=== PATIENT | male | born 1930 | race African-American/Black ===

== ENCOUNTER 2017-04-17 06:31 | Day surgery (SDC) | payer OTHER ==
[~2017-04-17] VITALS: Ht 188 cm; Wt 63.6 kg
[~2017-04-17 06:31] MED LIST: ACYC200C PO; ALBU6.7H INH; ALBU8I INH; AMLO10 PO; ASPI81TA82 PO; BORT3.5P IV; BYST10TA2 PO; GLUCTAB PO; HYDR-3580 PO; LABE300 PO; LISI2.5T3 PO; ONDA8 PO; PRAV10 PO; PRED20 PO; VENO20IN IV; VITA100020 PO; Z.0.OXYGENDME NC; ZITH250T PO
[2017-04-17 06:48] VITALS: BP 198/96; PULSE 71; RESP 20; TEMP 97.6; O2SAT 97
[2017-04-17] MEDS ORDERED: BYST10TA2 PO (06:50)
[2017-04-17] MEDS ORDERED: PRAV10TA PO (06:50)
[2017-04-17] MEDS ORDERED: PLAV75TA29 PO (06:50)
[2017-04-17] MEDS ORDERED: LISI2.5T3 PO (06:50)
[2017-04-17] MEDS ORDERED: ONDA1TAB17 PO (06:50)
[2017-04-17] MEDS ORDERED: ASPI-110 PO (06:50)
[2017-04-17] MEDS ORDERED: AMLO10TA2 PO (06:50)
[2017-04-17] MEDS ORDERED: ALBU6.7H INH (06:50)
[2017-04-17] MEDS ORDERED: VENTAER INH (06:50)
[2017-04-17] MEDS ORDERED: IMPLANTED VASCULAR ACCESS DEVICE/PORT - SODIUM CHLORIDE FLUSH PRN IV FLUSH (07:00)
[2017-04-17] MEDS ORDERED: SODIUM CHLOR 0.9% 1000 ML IV SCH (07:00)
[2017-04-17] MEDS ORDERED: IMPLANTED VASCULAR ACCESS DEVICE/PORT - SODIUM CHLORIDE FLUSH IV FLUSH SCH (07:00)
[2017-04-17] MEDS ORDERED: SODIUM CHLORIDE 0.9% FLUSH 10 ML FLUSH IV FLUSH PRN ×2 (07:00)
[2017-04-17 07:37] LABS: AUTOMATED NEUTROPHIL # 3.7 TH/MM3 (1.8-7.7); BASOPHIL % 0.6 % (0.0-2.0); EOSINOPHIL # 0.1 TH/MM3 (0-0.4); EOSINOPHIL % 2.2 % (0.0-4.0); HEMATOCRIT 26.6 % (39.0-51.0); HEMO FLAGS DIFF FINAL; LYMPH % 27.4 % (9.0-44.0); LYMPHOCYTE # 1.7 TH/MM3 (1.0-4.8); MEAN CELL VOLUME 80.3 FL (80.0-100.0); MEAN CORPUSCULAR HEMOGLOBIN 25.9 PG (27.0-34.0); MEAN CORPUSCULAR HGB CONC 32.3 % (32.0-36.0); MONO % 10.5 % (0.0-8.0); NEUT % 59.3 % (16.0-70.0); PLATELET COUNT 252 TH/MM3 (150-450); RED BLOOD COUNT 3.31 MIL/MM3 (4.50-5.90); RED CELL DISTRIBUTION WIDTH 16.1 % (11.6-17.2); WHITE BLOOD COUNT 6.3 TH/MM3 (4.0-11.0)
[2017-04-17 07:43] LABS: APTT (PATIENT) 26.4 SEC (24.3-30.1); INTERNATIONAL NORMALIZED RATIO 0.9 RATIO; PROTHROMBIN TIME - PATIENT 10.3 SEC (9.8-11.6)
[2017-04-17] MEDS ORDERED: LIDOCAINE 1%/EPINEPHrine 1:100,000 SOLN 20 ML VIAL ONE (07:56)
[2017-04-17] MEDS ORDERED: fentaNYL CITRATE 250 MCG/5 ML AMP ONE (08:28)
[2017-04-17] MEDS ORDERED: MIDAZOLAM HCL 5 MG/5 ML VIAL ONE (08:28)
--- NOTE | 2017-04-17 09:11 | PD.RAD ---
Post Procedure Progress Note Pre Procedure Diagnosis: (1) Anemia Post Procedure Diagnosis: (1) Anemia Procedure Date: Apr 17, 2017 Supervising Radiologist: Saul Diaz Anesthesia: Local, Conscious Sedation Plan of Activity Patient to Unit: ROPU Patient Condition: Good Additional Comments: PT post bone marrow biopsy, Full dictated report to follow. See PACS Report for procedural detail/treatment Saul Diaz MD Apr 17, 2017 09:11
[2017-04-17 09:25] VITALS: BP 189/90; PULSE 71; RESP 18; TEMP 98; O2SAT 100
[2017-04-17 09:40] VITALS: BP 196/93; PULSE 73; RESP 18; O2SAT 99
[2017-04-17 09:40] LABS: BONE MARROW PROCESSING COMPLETE; IRON STAIN DONE; JENNER GIEMSA STAIN DONE
[2017-04-17 10:10] VITALS: BP 165/74; PULSE 74; RESP 18; O2SAT 97
[2017-04-17 10:40] VITALS: BP 158/78; PULSE 69; RESP 18; O2SAT 99
[2017-04-17 11:10] VITALS: BP 178/81; PULSE 71; RESP 18; O2SAT 97
--- NOTE | 2017-04-17 11:10 | RADRPT ---
EXAM DATE/TIME: 04/17/2017 08:47 [facility] COMPARISON: CT LUMBAR SPINE W/O CONTRAST, May 10, 2014, 11:43. INDICATIONS : Multiple myeloma. SEDATION TIME: 10 minutes BIOPSY SITE: Left iliac MEDICATION(S): 1.) 1 mg midazolam (Versed) IV 2.) 50 mcg fentanyl (Sublimaze) IV DEVICE(S): 1.) 11 gauge Bone marrow biopsy needle MEDICAL HISTORY : Metastatic, bone. Multiple myeloma, anemia SURGICAL HISTORY : None. ENCOUNTER: Initial ACUITY: 1 day PAIN SCORE: 0/10 LOCATION: Left pelvis A total of one core specimen(s) were obtained and sent to the laboratory for pathologic evaluation. PROCEDURE: 1. CT guided bone marrow biopsy. 2. Conscious sedation with continuous EKG and oximetry monitoring. Prior to the procedure informed consent was obtained. Any appropriate prior imaging studies were rev iewed. Using automated exposure control and adjustment of the mA and/or kV according to patient size , radiation dose was kept as low as reasonably achievable to obtain optimal diagnostic quality images . DICOM format image data is available electronically for review and comparison. The site was prepped in a sterile fashion. Full sterile technique was used, including cap, mask, wojciech rile gloves and gown and a large sterile sheet. Hand hygiene and 2% chlorhexidine and/or betadine/al cohol prep was utilized per protocol for cutaneous antisepsis. The skin and subcutaneous tissues wer e infiltrated with local anesthetic solution. With CT guidance the previously identified target was localized. Biopsy was performed using the presc ribed needle as above. Following biopsy marrow aspiration was performed with repeat puncture. Adequa te hemostasis was obtained with compression at the puncture site. Follow-up CT scan reveals no hemorrhage. Conscious sedation was performed with the prescribed dosages and duration as above in the presence of an independent trained radiology nurse to assist in the monitoring of the patient. EKG and oximetry remained stable throughout the procedure. The patient tolerated the procedure well and there were no complications. The patient was sent to Radiology Outpatient Unit in stable condition. CONCLUSION: 1. Uncomplicated CT guided bone marrow aspirate. 2. Uncomplicated CT guided bone marrow biopsy. Saul Diaz MD on April 17, 2017 at 11:08 Board Certified Radiologist. This report was verified electronically.
== END 2017-04-17 11:30 | disposition home or self-care (01) ==
LOC: HRAD 06:31 → HRIP 06:35 → HRAD 11:30
PROVIDERS: ATTEND Internal Medicine
DX: C90.00 Multiple myeloma not having achieved remission (principal); D50.9 Iron deficiency anemia, unspecified
CPT/HCPCS: 38221; 77012; 85025; 85097; 85610; 85730; 88184; 88185; 88237; 88264; 88280; 88305; 88311; 88313; 88341; 88342; 88377; 99152; C1830; G0364; J2250; J3010

== ENCOUNTER 2017-04-26 06:53 | Day surgery (SDC) | payer OTHER ==
[~2017-04-26] VITALS: Ht 188 cm; Wt 80.5 kg
[2017-04-26] VITALS (7 sets, daily range): BP systolic 176–205; BP diastolic 85–95; PULSE 70–76; RESP 20; TEMP 97.9–98.5; O2SAT 98–100
[~2017-04-26 06:53] MED LIST changes: -ACYC200C PO; -ALBU8I INH; -AMLO10 PO; +AMLO10TA2 PO; +ASPI-110 PO; -ASPI81TA82 PO; -BORT3.5P IV; -GLUCTAB PO; -HYDR-3580 PO; -LABE300 PO; +ONDA1TAB17 PO; -ONDA8 PO; +PLAV75TA29 PO; -PRAV10 PO; +PRAV10TA PO; -PRED20 PO; -VENO20IN IV; +VENTAER INH; -ZITH250T PO
[2017-04-26] MEDS ORDERED: VANCOMYCIN 1000 MG/NS 250 ML - implanted port/tunneled catheter IV SCH ×2 (07:30)
[2017-04-26] MEDS ORDERED: CHLORHEXIDINE GLUCONATE 2 % 1 PACK (2 CLOTHS) TOPICAL SCH (07:30)
[2017-04-26] MEDS ORDERED: SODIUM CHLORIDE 0.9% 1000 ML IV SCH (07:30)
[2017-04-26] MEDS ORDERED: POVIDONE IODINE 5% (ANTISEPSIS KIT) 4 APPLICATIONS EACH NARE SCH (07:30)
[2017-04-26] MEDS: ceFAZolin 2 GM PREMIX 50 ML - implanted port/tunneled catheter insertion IV SCH ×2 (08:11→14:25)
[2017-04-26] MEDS ORDERED: ceFAZolin 2 GM PREMIX 50 ML - implanted port/tunneled catheter insertion IV SCH (09:00)
[2017-04-26] MEDS ORDERED: MIDAZOLAM HCL 5 MG/5 ML VIAL ONE (09:30)
[2017-04-26] MEDS ORDERED: fentaNYL CITRATE 250 MCG/5 ML AMP ONE (09:30)
[2017-04-26] MEDS ORDERED: MIDAZOLAM HCL 2 MG/2 ML VIAL ONE (09:30)
[2017-04-26] MEDS ORDERED: LIDOCAINE 1%/EPINEPHrine 1:100,000 SOLN 20 ML VIAL ONE (09:38)
[2017-04-26] MEDS ORDERED: SODIUM CHLORIDE 0.9% FLUSH 10 ML FLUSH IVF PRN (10:30)
--- NOTE | 2017-04-26 10:32 | PD.RAD ---
Post Procedure Progress Note Pre Procedure Diagnosis: (1) Colon cancer Post Procedure Diagnosis: (1) Colon cancer Procedure Date: Apr 26, 2017 Supervising Radiologist: Isak Barnard JR Proceduralist/Assist: Teresa Warren, RT(R), Emily Lizarraga, RT(R) Anesthesia: Conscious Sedation Plan of Activity Patient to Unit: R[facility]U Patient Condition: Good See PACS Report for procedural detail/treatment Central Venous Access Device Procedure 1 Right Internal Jugular Infusaport Placement single lumen Romanian: 8 Findings: Port in good position and functions well. OK to use. Plan F/U with IR or a physician in 10-14 days for a site check Jr. Akil,Isak Starr MD Apr 26, 2017 10:32
--- NOTE | 2017-04-26 12:19 | RADRPT ---
EXAM DATE/TIME: 04/26/2017 09:32 [facility] COMPARISON: No previous studies available for comparison. INDICATIONS : Patient with a history of multiple myeloma and colon cancer. MEDICAL HISTORY : CVA HTN LLE numbness Diabetes Colon CA Multiple myeloma SURGICAL HISTORY : Colostomy with reversal Left finger amputation ENCOUNTER: Initial ACUITY: 2 weeks PAIN SCORE: 2/10 LOCATION: Legs FLUORO TIME: 0.4 minutes IMAGE SERIES: 1 SEDATION TIME: 30 minutes ACCESS: Right internal jugular vein SEDATION: 1.) 2 mg midazolam (Versed) IV 2.) 100 mcg fentanyl (Sublimaze) IV Prophylactic antibiotics were administered with appropriate pre-procedure timing. Vancomycin within 2 hours of procedure, Ancef (or alternative) within 1 hour of procedure. DEVICE: 1. 8 Japanese single lumen Friayi-g-qtte PROCEDURE : 1. Continuous pulse oximetry and EKG monitoring. 2. Intravenous conscious sedation. 3. Ultrasound guidance for venous access. 4. Fluoroscopic guided implantable central venous port placement. The patient was placed supine. The neck was prepped in sterile fashion. Full sterile technique was u sed, including cap, mask, sterile gloves and gown, and a large sterile sheet. Hand hygiene and 2% ch lorhexidine Betadine was utilized per protocol for cutaneous antisepsis with appropriate dry time for site. The skin and subcutaneous tissues were infiltrated with local anesthetic solution. Under direct ultrasound guidance, central venous access was accomplished in the targeted vessel. The ultrasound images depicting access guidance were stored and saved to PACS for permanent record. A s ubcutaneous pocket was created using blunt dissection. The port was introduced to the pocket. The c atheter tubing was fed through a subcutaneous tunnel to the venotomy site. The catheter tubing was c ut to a suitable length and then was introduced through a valved Peel-Away sheath and positioned with catheter tubing tip at the cavo-atrial junction level. The pocket incision was closed with subcutic ular Vicryl suture. Steri-Strips were applied. The port was flushed and locked with heparin solutio n per protocol. Sterile dressing was applied to the site. The patient tolerated the procedure well. Conscious sedation was performed with the prescribed dosages and duration as above in the presence of an independent trained radiology nurse to assist in the monitoring of the patient. EKG and oximetry remained stable throughout the procedure. The patient tolerated the procedure well and there were no complications. The patient was sent to post anesthesia recovery in stable condition. CONCLUSION: Uncomplicated ultrasound and fluoroscopic guided implanted central venous port catheter placement as described in detail above. An 8 Japanese Power port was placed. Isak Barnard Jr., MD on April 26, 2017 at 12:17 Board Certified Radiologist. This report was verified electronically.
== END 2017-04-26 12:40 | disposition home or self-care (01) ==
LOC: HROP 06:53 → HRIP 06:58 → HROP 12:40
PROVIDERS: ATTEND Internal Medicine
DX: C90.00 Multiple myeloma not having achieved remission (principal); C18.9 Malignant neoplasm of colon, unspecified; I10 Essential (primary) hypertension; E11.9 Type 2 diabetes mellitus without complications; Z86.73 Personal history of transient ischemic attack (TIA), and cerebral infarction without residual deficits; Z89.022 Acquired absence of left finger(s)
CPT/HCPCS: 36561; 76937; 77001; 99152; 99153; C1788; J0690; J1642; J2250; J3010; J3370; J7030; J7050

== ENCOUNTER 2017-08-21 10:25 | Emergency (ER) | payer OTHER ==
[~2017-08-21] VITALS: Ht 205.7 cm; Wt 75.0 kg
[~2017-08-21 10:25] MED LIST changes: -ASPI-110 PO; +ASPI1TAB57 PO; -ONDA1TAB17 PO; +ONDA8TAB7 PO
[2017-08-21 10:27] VITALS: BP 194/79; PULSE 71; RESP 16; TEMP 98.8; O2SAT 95
[2017-08-21] MEDS ORDERED: oxygen NAS.CANULA (11:13)
--- NOTE | 2017-08-21 11:22 | PD ---
HPI Chief Complaint: Cold / Flu Symptoms Time Seen by Provider: 11:10 Travel History International Travel<30 days: No Contact w/Intl Traveler<30days: No Traveled to known affect area: No History of Present Illness HPI 87 YO M with PMH of hypertension, leukemia, colon CA s/p resection, stroke with residual unsteady gait, presents to the ED for evaluation of 1 week history of sinus congestion, runny nose, intermittent nonproductive cough and intermittent dizziness. Dizziness is accompanied by blurred vision. No alleviating or exacerbating factors reported. The patient endorses chills. He denies headache , fevers, chest pain, palpitations, shortness of breath, abdominal pain, nausea , vomiting, changes in bowel habits, dysuria, weakness of the lower extremities. Patient uses O2 at home as needed. He is prescribed albuterol nebulizers but has not used them. He is followed by Dr. Ag Neri, last visit last week. He did not get this years influenza immunization. PFSH Past Medical History Cancer: Yes (COLON CANCER, [place] ) Cardiovascular Problems: Yes Chemotherapy: Yes (shot ) Cerebrovascular Accident: Yes Diabetes: Yes Diminished Hearing: Yes ( [place] Endocrine: No Gastrointestinal Disorders: Yes Genitourinary: No Hypertension: Yes Immune Disorder: No Musculoskeletal: Yes (right lower extremity weakness - intermittent) Neurologic: Yes Psychiatric: No Reproductive: No Respiratory: No Immunizations Current: No (denies ) Radiation Therapy: Yes Past Surgical History Abdominal Surgery: Yes (COLOSTOMY WITH REVERSAL) AICD: No Ear Surgery: No Eye Surgery: No Gynecologic Surgery: No Joint Replacement: No Oral Surgery: No Pacemaker: No Other Surgery: Yes Social History Alcohol Use: No Tobacco Use: No Substance Use: No Allergies-Medications (Allergen,Severity, Reaction): Coded Allergies: No Known Allergies (Verified Adverse Reaction, Unknown, 08/21/17) Reported Meds & Prescriptions Reported Meds & Active Scripts Active Reported [oxygen] 2 Liter SANDER.CANULA CONTINUOUS Ventolin Hfa 18 GM Inh (Albuterol Sulfate) 90 Mcg/Act Aer 1 Puff INH Q4H PRN Aspirin 81 (Aspirin) 81 Mg Tabdr 81 Mg PO DAILY Plavix (Clopidogrel Bisulfate) 75 Mg Tab 75 Mg PO DAILY Ondansetron (Ondansetron HCl) 8 Mg Tab 8 Mg PO TID Pravastatin 10 Mg Tab 10 Mg PO DAILY Lisinopril 2.5 Mg Tab 2.5 Mg PO DAILY Bystolic (Nebivolol) 10 Mg Tab 10 Mg PO DAILY Amlodipine (Amlodipine Besylate) 10 Mg Tab 10 Mg PO DAILY Review of Systems Except as stated in HPI: all other systems reviewed are Neg Physical Exam Narrative GENERAL: Well-nourished, well-developed hard of hearing black male in no acute distress. SKIN: Warm and dry. HEAD: Normocephalic. Atraumatic. EYES: No scleral icterus. No injection or drainage. PERRLA. EOMI. ENT: Pearly bills tympanic membranes bilaterally. Nasal mucosa is moist. Oropharynx dry, without erythema, edema or exudate. NECK: Supple, trachea midline. No JVD or lymphadenopathy. CARDIOVASCULAR: Regular rate and rhythm without murmurs, gallops, or rubs. 2+ DP and radial pulses bilaterally. RESPIRATORY: Breath sounds clear and equal bilaterally. No accessory muscle use. GASTROINTESTINAL: Abdomen soft, non-tender, nondistended. + Bowel sounds MUSCULOSKELETAL: No cyanosis, or edema. Full, active range of motion. Strength 5/5. Neurovascularly intact. BACK: Nontender without obvious deformity. No CVA tenderness. Data Data Last Documented VS Vital Signs Date Time Temp Pulse Resp B/P (MAP) Pulse Ox O2 Delivery O2 Flow Rate FiO2 08/21/17 15:28 08/21/17 14:13 70 29 78 25 84 21 08/21/17 14:05 99 Room Air 08/21/17 10:27 98.8 Orders Orders Electrocardiogram (08/21/17 11:23) Complete Blood Count With Diff (08/21/17 11:23) Comprehensive Metabolic Panel (08/21/17 11:23) Magnesium (Mg) (08/21/17 11:23) B-Type Natriuretic Peptide (08/21/17 11:23) Troponin I (08/21/17 11:23) Act Partial Throm Time (Ptt) (08/21/17 11:23) Prothrombin Time / Inr (Pt) (08/21/17 11:23) Urinalysis - C+S If Indicated (08/21/17 11:23) Chest, Single Ap (08/21/17 11:23) Ct Brain W/O Iv Contrast(Rout) (08/21/17 11:23) Ecg Monitoring (08/21/17 11:23) Iv Access Insert/Monitor (08/21/17 11:23) Oximetry (08/21/17 11:23) Sodium Chloride 0.9% Flush (Ns Flush) (08/21/17 11:30) Orthostatic Vital Signs (08/21/17 11:23) Influenzae A/B Antigen (08/21/17 12:17) Meclizine (Antivert) (08/21/17 14:30) Ed Discharge Order (08/21/17 14:30) Heparin Central Flush (Heparin Central F (08/21/17 15:15) Labs Laboratory Tests Test 08/21/17 12:10 08/21/17 14:02 White Blood Count 4.2 TH/MM3 Red Blood Count 3.38 MIL/MM3 Hemoglobin 9.5 GM/DL Hematocrit 28.7 % Mean Corpuscular Volume 85.0 FL Mean Corpuscular Hemoglobin 28.0 PG Mean Corpuscular Hemoglobin Concent 32.9 % Red Cell Distribution Width 17.0 % Platelet Count 186 TH/MM3 Mean Platelet Volume 8.2 FL Neutrophils (%) (Auto) 65.0 % Lymphocytes (%) (Auto) 20.6 % Monocytes (%) (Auto) 14.1 % Eosinophils (%) (Auto) 0.0 % Basophils (%) (Auto) 0.3 % Neutrophils # (Auto) 2.7 TH/MM3 Lymphocytes # (Auto) 0.9 TH/MM3 Monocytes # (Auto) 0.6 TH/MM3 Eosinophils # (Auto) 0.0 TH/MM3 Basophils # (Auto) 0.0 TH/MM3 CBC Comment DIFF FINAL Differential Comment Prothrombin Time 10.8 SEC Prothromb Time International Ratio 1.0 RATIO Activated Partial Thromboplast Time 32.4 SEC Blood Urea Nitrogen 10 MG/DL Creatinine 1.55 MG/DL Random Glucose 90 MG/DL Total Protein 7.2 GM/DL Albumin 3.7 GM/DL Calcium Level 8.5 MG/DL Magnesium Level 1.9 MG/DL Alkaline Phosphatase 51 U/L Aspartate Amino Transf (AST/SGOT) 19 U/L Alanine Aminotransferase (ALT/SGPT) 13 U/L Total Bilirubin 0.4 MG/DL Sodium Level 137 MEQ/L Potassium Level 3.8 MEQ/L Chloride Level 103 MEQ/L Carbon Dioxide Level 27.5 MEQ/L Anion Gap 7 MEQ/L Estimat Glomerular Filtration Rate 52 ML/MIN Troponin I LESS THAN 0.02 NG/ML B-Type Natriuretic Peptide 88 PG/ML Urine Color YELLOW Urine Turbidity CLEAR Urine pH 8.0 Urine Specific [place] 1.009 Urine Protein 30 mg/dL Urine Glucose (UA) NEG mg/dL Urine Ketones NEG mg/dL Urine Occult Blood NEG Urine Nitrite NEG Urine Bilirubin NEG Urine Urobilinogen LESS THAN 2.0 MG/DL Urine Leukocyte Esterase NEG Urine RBC 1 /hpf Urine WBC 2 /hpf Microscopic Urinalysis Comment CULT NOT INDICATED MDM Medical Decision Making Medical Screen Exam Complete: Yes Emergency Medical Condition: Yes Differential Diagnosis Sinusitis versus viral syndrome versus influenza versus PNA versus anemia versus metabolic derangement versus ICH versus other Narrative Course 87 YO M with PMH of hypertension, leukemia, colon CA s/p resection, stroke with residual unsteady gait, presents to the ED for evaluation of 1 week history of sinus congestion, runny nose, intermittent nonproductive cough and intermittent dizziness. Dizziness is accompanied by blurred vision. The patient endorses chills. He denies headache, fevers, chest pain, palpitations, shortness of breath, abdominal pain, nausea, vomiting, changes in bowel habits, dysuria, weakness of the lower extremities. Patient uses O2 at home as needed. He is followed by Dr. Ag Neri, last visit last week. He did not get this years influenza immunization. Vitals reviewed. Patient's hypertensive on presentation. ENT exam is unremarkable. Chest CT AB. Abdomen soft nontender. No lower extremity edema. He was administered a dose of Antivert. EKG rate 62, sinus rhythm. MT interval 177, QRS 122, QTC 434 ms. Normal axis. No acute ST changes. Reviewed by Dr. Haddad. CXR: No acute abnormality identified. Troponin: Negative 1. CBC, CMP at patient's baseline. No culture indicated of the UA. I discussed the patient with Dr. Haddad. She is in agreement that the patient is safe for discharge with close follow-up by Dr. Haas. I discussed the results of the workup with the patient and his daughter at bedside. They are agreeable to the care plan. The patient is stable and discharged home. Diagnosis Primary Impression: Orthostatic hypotension Additional Impression: Viral syndrome Referrals: Ag Neri MD Patient Instructions: General Instructions, Viral Syndrome (ED) Additional Instructions: Rest, hydrate. Return to normal, gentle activity as tolerated. Rise slowly from sitting or lying down positions as you have a condition called orthostatic hypotension which can cause dizziness and falls. Follow up with Dr. Neri this week. Return to the ED for worsening symptoms or any urgent/ emergent medical condition. Disposition: 01 DISCHARGE HOME Condition: Stable Kelle Shaw Aug 21, 2017 11:22
[2017-08-21] MEDS ORDERED: SODIUM CHLORIDE 0.9% FLUSH 10 ML FLUSH IVF PRN (11:30)
--- NOTE | 2017-08-21 12:00 | RADRPT ---
EXAM DATE/TIME: 08/21/2017 11:35 [facility] COMPARISON: No previous studies available for comparison. INDICATIONS : Dizziness and cold symptoms for 1 week RADIATION DOSE: 56.35 CTDIvol (mGy) MEDICAL HISTORY : Carcinoma, colon. Hypertension. Cardiovascular diseasediabetes SURGICAL HISTORY : Colon resection. ENCOUNTER: Initial ACUITY: 1 week PAIN SCALE: 1/10 LOCATION: cranial TECHNIQUE: Multiple contiguous axial images were obtained of the head. Using automated exposure control and adj ustment of the mA and/or kV according to patient size, radiation dose was kept as low as reasonably a chievable to obtain optimal diagnostic quality images. DICOM format image data is available electro nically for review and comparison. FINDINGS: CEREBRUM: There is generalized atrophy. Ventricles are normal. There is mild periventricular white matter low a ttenuation. No evidence of midline shift, mass lesion, hemorrhage or acute infarction. No extra-axi al fluid collections are seen. POSTERIOR FOSSA: The cerebellum and brainstem demonstrate no acute finding. The 4th ventricle is midline. The cerebe llopontine angle is unremarkable. EXTRACRANIAL: Visualized sinuses are clear. SKULL: The calvaria is intact. No evidence of skull fracture. CONCLUSION: 1. No acute intracranial abnormality is identified. 2. Chronic changes include generalized atrophy and chronic mild periventricular white matter changes. Henry Shah MD on August 21, 2017 at 11:57 Board Certified Radiologist. This report was verified electronically.
[2017-08-21 12:19] VITALS: O2SAT 96
[2017-08-21 12:27] LABS: AUTOMATED NEUTROPHIL # 2.7 TH/MM3 (1.8-7.7); BASOPHIL % 0.3 % (0.0-2.0); HEMATOCRIT 28.7 % (39.0-51.0); HEMO FLAGS DIFF FINAL; LYMPH % 20.6 % (9.0-44.0); LYMPHOCYTE # 0.9 TH/MM3 (1.0-4.8); MEAN CORPUSCULAR HGB CONC 32.9 % (32.0-36.0); MONO % 14.1 % (0.0-8.0); PLATELET COUNT 186 TH/MM3 (150-450); RED BLOOD COUNT 3.38 MIL/MM3 (4.50-5.90); WHITE BLOOD COUNT 4.2 TH/MM3 (4.0-11.0)
[2017-08-21 12:35] LABS: APTT (PATIENT) 32.4 SEC (24.3-30.1); PROTHROMBIN TIME - PATIENT 10.8 SEC (9.8-11.6)
[2017-08-21 12:45] LABS: ALT (GPT) 13 U/L (12-78); ANION GAP 7 MEQ/L (5-15); AST (GOT) 19 U/L (15-37); BICARBONATE 27.5 MEQ/L (21.0-32.0); BLOOD UREA NITROGEN 10 MG/DL (7-18); CHLORIDE 103 MEQ/L (98-107); GLOMERULAR FILTRATION RATE 52 ML/MIN (>89); MAGNESIUM 1.9 MG/DL (1.5-2.5); POTASSIUM 3.8 MEQ/L (3.5-5.1); SODIUM (NA) 137 MEQ/L (136-145)
[2017-08-21 12:49] LABS: ALKALINE PHOSPHATASE 51 U/L (45-117); TOTAL BILIRUBIN ADULT 0.4 MG/DL (0.2-1.0)
--- NOTE | 2017-08-21 13:45 | RADRPT ---
EXAM DATE/TIME: 08/21/2017 11:45 [facility] COMPARISON: CHEST SINGLE AP, June 30, 2016, 15:09. INDICATIONS : Palpitations. MEDICAL HISTORY : Metastatic, bone. Multiple myeloma, anemia SURGICAL HISTORY : PORT. ENCOUNTER: Initial ACUITY: 1 day PAIN SCORE: 0/10 LOCATION: Bilateral chest FINDINGS: The [id number] in excellent position. The cardiac and mediastinal contours are within normal limit s. There are chronic interstitial changes throughout the pulmonary parenchyma. The visualized osseous structures are intact. CONCLUSION: 1. Chronic interstitial changes. No acute abnormality identified. Saul Diaz MD on August 21, 2017 at 13:43 Board Certified Radiologist. This report was verified electronically.
[2017-08-21 14:05] VITALS: BP 189/86; PULSE 70; RESP 19; O2SAT 99
[2017-08-21 14:13] VITALS: BP_SYST 146; BP_SYST 155; BP_SYST 187; BP_DIAS 67; BP_DIAS 72; BP_DIAS 86; RESP 21; RESP 25; RESP 29
[2017-08-21 14:22] LABS: BLOOD, URINE NEG (NEG); GLUCOSE,URINE NEG (NEG); KETONE, URINE NEG (NEG); NITRITE,URINE NEG (NEG); URINE COLOR YELLOW (YELLW/STRAW)
[2017-08-21 14:26] LABS: COMMENT (UR) CULT NOT INDICATED; CULTURE IF INDICATED CULT NOT INDICATED
[2017-08-21] MEDS ORDERED: MECLIZINE HCL 25 MG TAB PO ONE (14:30)
--- NOTE | 2017-08-21 16:14 | PD ---
Data Data Last Documented VS Vital Signs Date Time Temp Pulse Resp B/P (MAP) Pulse Ox O2 Delivery O2 Flow Rate FiO2 08/21/17 15:28 08/21/17 14:13 70 29 78 25 84 21 08/21/17 14:05 99 Room Air 08/21/17 10:27 98.8 Orders Orders Electrocardiogram (08/21/17 11:23) Complete Blood Count With Diff (08/21/17 11:23) Comprehensive Metabolic Panel (08/21/17 11:23) Magnesium (Mg) (08/21/17 11:23) B-Type Natriuretic Peptide (08/21/17 11:23) Troponin I (08/21/17 11:23) Act Partial Throm Time (Ptt) (08/21/17 11:23) Prothrombin Time / Inr (Pt) (08/21/17 11:23) Urinalysis - C+S If Indicated (08/21/17 11:23) Chest, Single Ap (08/21/17 11:23) Ct Brain W/O Iv Contrast(Rout) (08/21/17 11:23) Ecg Monitoring (08/21/17 11:23) Iv Access Insert/Monitor (08/21/17 11:23) Oximetry (08/21/17 11:23) Sodium Chloride 0.9% Flush (Ns Flush) (08/21/17 11:30) Orthostatic Vital Signs (08/21/17 11:23) Influenzae A/B Antigen (08/21/17 12:17) Meclizine (Antivert) (08/21/17 14:30) Ed Discharge Order (08/21/17 14:30) Heparin Central Flush (Heparin Central F (08/21/17 15:15) Labs Laboratory Tests Test 08/21/17 12:10 08/21/17 14:02 White Blood Count 4.2 TH/MM3 Red Blood Count 3.38 MIL/MM3 Hemoglobin 9.5 GM/DL Hematocrit 28.7 % Mean Corpuscular Volume 85.0 FL Mean Corpuscular Hemoglobin 28.0 PG Mean Corpuscular Hemoglobin Concent 32.9 % Red Cell Distribution Width 17.0 % Platelet Count 186 TH/MM3 Mean Platelet Volume 8.2 FL Neutrophils (%) (Auto) 65.0 % Lymphocytes (%) (Auto) 20.6 % Monocytes (%) (Auto) 14.1 % Eosinophils (%) (Auto) 0.0 % Basophils (%) (Auto) 0.3 % Neutrophils # (Auto) 2.7 TH/MM3 Lymphocytes # (Auto) 0.9 TH/MM3 Monocytes # (Auto) 0.6 TH/MM3 Eosinophils # (Auto) 0.0 TH/MM3 Basophils # (Auto) 0.0 TH/MM3 CBC Comment DIFF FINAL Differential Comment Prothrombin Time 10.8 SEC Prothromb Time International Ratio 1.0 RATIO Activated Partial Thromboplast Time 32.4 SEC Blood Urea Nitrogen 10 MG/DL Creatinine 1.55 MG/DL Random Glucose 90 MG/DL Total Protein 7.2 GM/DL Albumin 3.7 GM/DL Calcium Level 8.5 MG/DL Magnesium Level 1.9 MG/DL Alkaline Phosphatase 51 U/L Aspartate Amino Transf (AST/SGOT) 19 U/L Alanine Aminotransferase (ALT/SGPT) 13 U/L Total Bilirubin 0.4 MG/DL Sodium Level 137 MEQ/L Potassium Level 3.8 MEQ/L Chloride Level 103 MEQ/L Carbon Dioxide Level 27.5 MEQ/L Anion Gap 7 MEQ/L Estimat Glomerular Filtration Rate 52 ML/MIN Troponin I LESS THAN 0.02 NG/ML B-Type Natriuretic Peptide 88 PG/ML Urine Color YELLOW Urine Turbidity CLEAR Urine pH 8.0 Urine Specific [place] 1.009 Urine Protein 30 mg/dL Urine Glucose (UA) NEG mg/dL Urine Ketones NEG mg/dL Urine Occult Blood NEG Urine Nitrite NEG Urine Bilirubin NEG Urine Urobilinogen LESS THAN 2.0 MG/DL Urine Leukocyte Esterase NEG Urine RBC 1 /hpf Urine WBC 2 /hpf Microscopic Urinalysis Comment CULT NOT INDICATED [facility] Supervised Visit with JAKY: Yes Narrative Course The history, exam, and medical decision-making in the associated midlevel provider note were completed with my assistance. I reviewed and agree with the findings presented. I attest that I had a [id number] encounter with the patient on the same day, and personally performed and documented my assessment and findings in the medical record. *My assessment and Findings: This is an 87-year-old male who has a history of multiple myeloma and is on Velcade who presents to the emergency department with sinus congestion, sore throat and cold symptoms. He is afebrile here. Labs are all reassuring. CT the head was obtained which was unremarkable. 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 I think he's safe for discharge and I think he can follow-up as an outpatient with Dr. Neri. Him and his daughter expressed understanding. Diagnosis Primary Impression: Orthostatic hypotension Additional Impression: Viral syndrome Referrals: Ag Neri MD Patient Instructions: General Instructions, Hypotension (ED), Viral Syndrome ( ED) Departure Forms: Tests/Procedures Additional Instruction: Rest, hydrate. Return to normal, gentle activity as tolerated. Rise slowly from sitting or lying down positions as you have a condition called orthostatic hypotension which can cause dizziness and falls. Follow up with Dr. Neri this week. Return to the ED for worsening symptoms or any urgent/ emergent medical condition. Disposition: 01 DISCHARGE HOME Condition: Stable Corina Haddad MD Aug 21, 2017 16:14
--- NOTE | 2017-08-21 21:16 | EKG ---
Date Performed: 08/21/2017 Time Performed: 12:11:21 PTAGE: 87 years EKG: Sinus rhythm MODERATE INTRAVENTRICULAR CONDUCTION DELAY BORDERLINE ECG PREVIOUS TRACING : 06/30/2016 15.15 Compared to prior tracing no significant change DOCTOR: Harpal Lowery Interpretating Date/Time 08/21/2017 21:15:04
== END 2017-08-21 15:29 | disposition home or self-care (01) ==
LOC: NEPC 10:25
DX: I95.1 Orthostatic hypotension (principal); B34.9 Viral infection, unspecified; I69.998 Other sequelae following unspecified cerebrovascular disease; I10 Essential (primary) hypertension; Z85.6 Personal history of leukemia; Z85.038 Personal history of other malignant neoplasm of large intestine; Z79.82 Long term (current) use of aspirin; Z79.02 Long term (current) use of antithrombotics/antiplatelets; Z79.899 Other long term (current) drug therapy
CPT/HCPCS: 70450; 71010; 80053; 81001; 83735; 83880; 84484; 85025; 85610; 85730; 87804; 93005; 99285; J1642

== ENCOUNTER 2017-10-23 23:37 | Observation (INO) | payer OTHER ==
[~2017-10-23] VITALS: Ht 188 cm; Wt 65.6 kg
[~2017-10-23 23:37] MED LIST changes: -ALBU6.7H INH; -VITA100020 PO; -Z.0.OXYGENDME NC; +oxygen NAS.CANULA
[2017-10-23 23:50] VITALS: BP 176/77; PULSE 83; RESP 18; TEMP 98.7; O2SAT 97
[2017-10-24] VITALS (7 sets, daily range): BP systolic 123–167; BP diastolic 58–75; PULSE 60–82; RESP 16–24; TEMP 98.3–99.1; O2SAT 98–100
--- NOTE | 2017-10-24 00:24 | RADRPT ---
EXAM DATE/TIME: 10/23/2017 23:56 [facility] COMPARISON: No previous studies available for comparison. INDICATIONS : Abdominal pain. MEDICAL HISTORY : Metastatic, bone. Multiple myeloma, anemia SURGICAL HISTORY : None. ENCOUNTER: Initial ACUITY: 1 day PAIN SCORE: 7/10 LOCATION: Bilateral abdomen FINDINGS: Supine view of the abdomen was performed. The abdominal bowel gas pattern is normal. No abnormal ma sses, or organomegaly is seen. Vascular calcifications are seen. There are some compressive changes in the lumbar spine especially of L4. The osseous structures are unremarkable. CONCLUSION: 1. No acute abnormality seen. 2. Suspected compressive changes at the lumbar spine especially L4. Henry Knight MD on October 24, 2017 at 0:19 Board Certified Radiologist. This report was verified electronically.
[2017-10-24] MEDS ORDERED: SOD PHOSPHATE/SOD BIPHOSPHATE (ADULT) ENEMA 133ML RECTAL ONE (00:30)
[2017-10-24] MEDS ORDERED: MAGNESIUM HYDROXIDE SUSP 30 ML CUP PO ONE (00:30)
[2017-10-24 00:35] LABS: AUTOMATED NEUTROPHIL # 12.8 TH/MM3 (1.8-7.7); BASOPHIL # 0.1 TH/MM3 (0-0.2); BASOPHIL % 0.6 % (0.0-2.0); EOSINOPHIL % 0.1 % (0.0-4.0); HEMATOCRIT 35.7 % (39.0-51.0); HEMOGLOBIN 11.9 GM/DL (13.0-17.0); LYMPH % 3.4 % (9.0-44.0); LYMPHOCYTE # 0.5 TH/MM3 (1.0-4.8); MEAN CELL VOLUME 88.3 FL (80.0-100.0); MEAN CORPUSCULAR HEMOGLOBIN 29.5 PG (27.0-34.0); MEAN CORPUSCULAR HGB CONC 33.4 % (32.0-36.0); MEAN PLATELET VOLUME 7.4 FL (7.0-11.0); MONO % 3.7 % (0.0-8.0); MONOCYTE # 0.5 TH/MM3 (0-0.9); NEUT % 92.2 % (16.0-70.0); PLATELET COUNT 436 TH/MM3 (150-450); RED BLOOD COUNT 4.05 MIL/MM3 (4.50-5.90); RED CELL DISTRIBUTION WIDTH 14.1 % (11.6-17.2); WHITE BLOOD COUNT 13.9 TH/MM3 (4.0-11.0)
[2017-10-24 00:43] LABS: ALBUMIN 4.1 GM/DL (3.4-5.0); ALT (GPT) 14 U/L (12-78); AST (GOT) 14 U/L (15-37); BICARBONATE 27.6 MEQ/L (21.0-32.0); BLOOD UREA NITROGEN 21 MG/DL (7-18); CALCIUM 9.1 MG/DL (8.5-10.1); CHLORIDE 105 MEQ/L (98-107); CREATININE 2.29 MG/DL (0.60-1.30); GLOMERULAR FILTRATION RATE 33 ML/MIN (>89); GLUCOSE,RANDOM 136 MG/DL (74-106); LIPASE 125 U/L (73-393); SODIUM (NA) 140 MEQ/L (136-145)
[2017-10-24 00:47] LABS: ALKALINE PHOSPHATASE 90 U/L (45-117); TOTAL BILIRUBIN ADULT 0.6 MG/DL (0.2-1.0); TOTAL PROTEIN 8.3 GM/DL (6.4-8.2)
--- NOTE | 2017-10-24 02:32 | RADRPT ---
EXAM DATE/TIME: 10/24/2017 01:52 [facility] COMPARISON: No previous studies available for comparison. INDICATIONS : Diffuse abdominal pain with constipation. ORAL CONTRAST: No oral contrast ingested. RADIATION DOSE: 6.64 CTDIvol (mGy) MEDICAL HISTORY : Carcinoma, colon. Hypertension. Metastatic, bone. Multiple myeloma. Anemia. Diabetes. SURGICAL HISTORY : Colostomy with reversal. ENCOUNTER: Initial ACUITY: 3 days PAIN SCALE: 3/10 LOCATION: All quadrants. TECHNIQUE: Volumetric scanning of the abdomen and pelvis was performed. Using automated exposure control and ad justment of the mA and/or kV according to patient size, radiation dose was kept as low as reasonably achievable to obtain optimal diagnostic quality images. DICOM format image data is available electro nically for review and comparison. FINDINGS: LOWER LUNGS: The visualized lower lungs are clear. LIVER: Homogeneous density without lesion. There is no dilation of the biliary tree. No calcified gallston es. SPLEEN: Normal size without lesion. PANCREAS: Within normal limits. KIDNEYS: Normal in size and shape. There is no mass, stone, or hydronephrosis. ADRENAL GLANDS: Within normal limits. VASCULAR: There is no aortic aneurysm. Scattered atherosclerotic calcifications are present. BOWEL/MESENTERY: There is an anastomotic suture line in the right midabdomen. There is an anastomosis suture line seen in the rectum. There is thickening of the bowel just proximal to the rectal anastomosis in the lower pelvis. ABDOMINAL WALL: Within normal limits. RETROPERITONEUM: There is no lymphadenopathy. BLADDER: No wall thickening or mass. REPRODUCTIVE: Within normal limits. INGUINAL: There is no lymphadenopathy or hernia. MUSCULOSKELETAL: There are compressive changes at the superior aspect of L2, superior left side of L3, and superiorly and inferiorly at L4. There is degenerative change of the lumbar spine. There is sclerosis of the rig ht seventh, eighth, and 11th ribs. There is a pathological fracture of the eighth right rib. CONCLUSION: 1. Anastomosis sutures are seen. There is one in the rectal region. The bowel just proximal to this d oes appear thickened. 2. Compressive changes at the L2-L4 vertebral bodies. 3. Sclerosis at the right seventh, eighth, and 11th ribs with a pathological fracture at the eighth r ib. Henry Knight MD on October 24, 2017 at 2:20 Board Certified Radiologist. This report was verified electronically.
[2017-10-24] MEDS ORDERED: SODIUM CHLORID 0.9% 500 ML INJ 500 ML IV ONE (02:45)
--- NOTE | 2017-10-24 02:57 | PD ---
HPI . Abdominal pain Chief Complaint: Abdominal Pain Time Seen by Provider: 23:51 Travel History International Travel<30 days: No Contact w/Intl Traveler<30days: No Traveled to known affect area: No History of Present Illness HPI 87-year-old male history of prior bowel resection, complains of generalized weakness, and abdominal pain with distention noting that is having difficulty stooling. Patient has no fever and nonfocal weakness. No complaints of dysuria urgency frequency. PFSH Past Medical History Narrative Medical Past medical history reviewed Cancer: Yes (COLON CANCER, [place] ) Cardiovascular Problems: Yes Chemotherapy: Yes (shot ) Cerebrovascular Accident: Yes Diabetes: Yes Patient Takes Glucophage: No Diminished Hearing: Yes ( [place] [employer] [employer] [place]) Endocrine: No Gastrointestinal Disorders: Yes Genitourinary: No Hypertension: Yes Immune Disorder: No Implanted Vascular Access Dvce: Yes (right chest port) Musculoskeletal: Yes (right lower extremity weakness - intermittent) Neurologic: Yes Psychiatric: No Reproductive: No Respiratory: No Immunizations Current: No (denies ) Radiation Therapy: Yes Past Surgical History Abdominal Surgery: Yes (COLOSTOMY WITH REVERSAL) AICD: No Ear Surgery: No Eye Surgery: No Gynecologic Surgery: No Joint Replacement: No Oral Surgery: No Pacemaker: No Other Surgery: Yes Social History Alcohol Use: No Tobacco Use: No Substance Use: No Allergies-Medications (Allergen,Severity, Reaction): Coded Allergies: No Known Allergies (Verified Adverse Reaction, Unknown, 10/23/17) Reported Meds & Prescriptions Reported Meds & Active Scripts Active Reported Ventolin Hfa 18 GM Inh (Albuterol Sulfate) 90 Mcg/Act Aer 1 Puff INH Q4H PRN Aspirin 81 (Aspirin) 81 Mg Tabdr 81 Mg PO DAILY Plavix (Clopidogrel Bisulfate) 75 Mg Tab 75 Mg PO DAILY Ondansetron (Ondansetron HCl) 8 Mg Tab 8 Mg PO TID Pravastatin 10 Mg Tab 10 Mg PO DAILY Lisinopril 2.5 Mg Tab 2.5 Mg PO DAILY Bystolic (Nebivolol) 10 Mg Tab 10 Mg PO DAILY Amlodipine (Amlodipine Besylate) 10 Mg Tab 10 Mg PO DAILY Narrative Medication Allergies and medications reviewed Review of Systems Except as stated in HPI: all other systems reviewed are Neg General / Constitutional: No: Fever Eyes: No: Visual changes HENT: No: Headaches Cardiovascular: No: Chest Pain or Discomfort Respiratory: No: Shortness of Breath Gastrointestinal: Positive: Abdominal Pain, Constipation, No: Nausea, Vomiting , Diarrhea Genitourinary: No: Urgency, Frequency, Dysuria, Hematuria Musculoskeletal: No: Pain Skin: No Rash Neurologic: No: Weakness Psychiatric: No: Depression Endocrine: No: Polydipsia Hematologic/Lymphatic: No: Easy Bruising Physical Exam Narrative GENERAL: Awake and alert oriented 3 no acute distress vital signs afebrile normal and stable SKIN: Warm and dry. Color is normal no diaphoresis cyanosis or pallor HEAD: Atraumatic. Normocephalic. EYES: Pupils equal and round. No scleral icterus. No injection or drainage. ENT: No nasal bleeding or discharge. Mucous membranes pink and moist. NECK: Trachea midline. No JVD. Nontender full range of motion CARDIOVASCULAR: Regular rate and rhythm. S1-S2 no murmurs rubs or gallops RESPIRATORY: No accessory muscle use. Clear to auscultation. Breath sounds equal bilaterally. GASTROINTESTINAL: Abdomen soft, diffusely tender, no rebound or guarding, distended slightly. Hepatic and splenic margins not palpable. MUSCULOSKELETAL: Extremities without clubbing, cyanosis, or edema. No obvious deformities. NEUROLOGICAL: Awake and alert. No obvious deficits PSYCHIATRIC: Appropriate mood and affect; insight and judgment normal. Data Data Last Documented VS Vital Signs Date Time Temp Pulse Resp B/P (MAP) Pulse Ox O2 Delivery O2 Flow Rate FiO2 10/24/17 02:46 81 16 152/75 (100) 99 Room Air 10/23/17 23:50 98.7 Orders Orders Complete Blood Count With Diff (10/23/17 23:51) Comprehensive Metabolic Panel (10/23/17 23:51) Lipase (10/23/17 23:51) Urinalysis - C+S If Indicated (10/23/17 23:51) Iv Access Insert/Monitor (10/23/17 23:51) Ecg Monitoring (10/23/17 23:51) Oximetry (10/23/17 23:51) Sodium Chloride 0.9% Flush (Ns Flush) (10/24/17 00:00) Abdomen, Kub Only (10/23/17 23:51) Fleets Enema (Adult) (Fleets Enema (Adul (10/24/17 00:30) Magnesium Hydroxide Liq (Milk Of Magnesi (10/24/17 00:30) Ct Abd/Pel W/O Iv Contrast (10/24/17 ) Sodium Chlorid 0.9% 500 Ml Inj (Ns 500 M (10/24/17 02:45) Admit Order (Ed Use Only) (10/24/17 02:49) Place In Observation (10/24/17 ) Vital Signs (Adult) Q4H (10/24/17 02:51) Activity Oob With Assistance (10/24/17 02:51) [employer] / Telemetry .CONTINUOUS (10/24/17 02:51) Diet Heart Healthy (10/24/17 Breakfast) Sodium Chloride 0.9% Flush (Ns Flush) (10/24/17 03:00) Sodium Chloride 0.9% Flush (Ns Flush) (10/24/17 09:00) Basic Metabolic Panel (Bmp) (10/25/17 06:00) Complete Blood Count With Diff (10/25/17 06:00) Pt Request For Service (10/24/17 02:51) Case Management Consult (10/24/17 02:51) Naloxone Inj (Narcan Inj) (10/24/17 03:00) Labs Laboratory Tests Test 10/24/17 00:00 White Blood Count 13.9 TH/MM3 Red Blood Count 4.05 MIL/MM3 Hemoglobin 11.9 GM/DL Hematocrit 35.7 % Mean Corpuscular Volume 88.3 FL Mean Corpuscular Hemoglobin 29.5 PG Mean Corpuscular Hemoglobin Concent 33.4 % Red Cell Distribution Width 14.1 % Platelet Count 436 TH/MM3 Mean Platelet Volume 7.4 FL Neutrophils (%) (Auto) 92.2 % Lymphocytes (%) (Auto) 3.4 % Monocytes (%) (Auto) 3.7 % Eosinophils (%) (Auto) 0.1 % Basophils (%) (Auto) 0.6 % Neutrophils # (Auto) 12.8 TH/MM3 Lymphocytes # (Auto) 0.5 TH/MM3 Monocytes # (Auto) 0.5 TH/MM3 Eosinophils # (Auto) 0.0 TH/MM3 Basophils # (Auto) 0.1 TH/MM3 CBC Comment DIFF FINAL Differential Comment Blood Urea Nitrogen 21 MG/DL Creatinine 2.29 MG/DL Random Glucose 136 MG/DL Total Protein 8.3 GM/DL Albumin 4.1 GM/DL Calcium Level 9.1 MG/DL Alkaline Phosphatase 90 U/L Aspartate Amino Transf (AST/SGOT) 14 U/L Alanine Aminotransferase (ALT/SGPT) 14 U/L Total Bilirubin 0.6 MG/DL Sodium Level 140 MEQ/L Potassium Level 5.1 MEQ/L Chloride Level 105 MEQ/L Carbon Dioxide Level 27.6 MEQ/L Anion Gap 7 MEQ/L Estimat Glomerular Filtration Rate 33 ML/MIN Lipase 125 U/L MDM Medical Decision Making Medical Screen Exam Complete: Yes Emergency Medical Condition: Yes Medical Record Reviewed: Yes Differential Diagnosis Constipation, ileus, obstruction Narrative Course KUB performed, large amount of formed stool in the rectal vault. Enema ordered , patient had large bowel movement just prior to administration of enema. Repeat examination revealed patient still is distended and somewhat tender. Return examinations resulted with elevated white blood cell count 13.9. Patient also has an elevated creatinine of 2.29, elevated from his trended normal proximally 1.5 as recently as last week. CT noncontrast revealed diffuse small bowel distention over 2.5 cm with thickening of bowel wall just proximal to patient's reanastomosis consistent with possible ileus. Patient given IV normal saline to address patient's possible dehydration cause for acute renal insufficiency, case discussed with hospitalist Dr. Bergman admitted Diagnosis Primary Impression: Ileus Additional Impression: Renal insufficiency Admitting Information Admitting Physician Requests: Admit Condition: Tom Garcia MD Oct 24, 2017 02:57
[2017-10-24] MEDS ORDERED: NALOXONE HCL 0.4 MG/ML AMP IV PUSH PRN (03:00)
[2017-10-24] MEDS ORDERED: SODIUM CHLORIDE 0.9% FLUSH 10 ML FLUSH IV FLUSH PRN ×2 (03:00)
--- NOTE | 2017-10-24 05:41 | HHI.HP ---
[facility] Physician Unknown Admission Diagnosis Ileus vs Obstruction, Acute Renal Insufficiency Diagnoses: Travel History International Travel<30 Days: No Contact w/Intl Traveler <30 Da: No Traveled to Known Affected Are: No History of Present Illness History from patient, ER physician communication, and review of medical records. Patient's daughter was at the bedside as well and provided some history. Patient reported that he's been constipated for 3 days. Denies prior history of diarrhea. He has mid abdominal pain together with constipation. Denies any nausea or vomiting. He denies any recent antibiotics use. Daughter stated the patient was so weak because of this constipation and was really not able to ambulate at home at all. Usually patient lives by himself and is capable of doing all his daily activities. He is also still driving. In the emergency room, patient was given laxatives/Fleet enema and he did make his bowels. However patient was basically soaked in his own feces and urine while in emergency room. He is unable to tell me whether this was because he did not get help on time to move his bowels alright with her because he was too weak and lost control of his bowels and urine. He has had CT abdomen done in emergency room which was officially read by radiologist. However ER M.D. thought that patient may have ileus based on CT findings and thus referred for medical admission. Upon further questioning, patient reports of "head cold" sinus congestion for the past one week. Daughter at the bedside stated the patient was dripping from his nose all those days. This was also when his weakness started. Patient is on chemotherapy for treatment of his multiple myeloma. He states that his last dose was on Sunday. Oncology notes reviewed. Upon my arrival as well, patient looks to be quite weak. He is soaked in his own urine and feces. When the nurse cleaned him up and stood him up by the bedside, he was able to get up but looked quite unsteady and weak. Review of Systems Except as stated in HPI: all other systems reviewed are Neg Past Family Social History Past Medical History Hypertension CKD CVA- walks with a walker multiple myeloma- on chemo- last Sunday dr Neri Colonic CA status post resection, chemotherapy and radiation Prostate CA status post surgery Past Surgical History cholecystectomy Colonoscopy prostate cancer removal partial colon resection- chemo and radiation- many yrs ago Allergies: Coded Allergies: No Known Allergies (Verified Adverse Reaction, Unknown, 10/23/17) Family History daughters- kidney failure- one Social History used to smoke , quit 20yrs ago used to drink etoh heavily , quit 20yrs ago lives by himself, still drives , daughter lives with him can do everything by himself for his ADLs Physical Exam Vital Signs Vital Signs Date Time Temp Pulse Resp B/P (MAP) Pulse Ox O2 Delivery O2 Flow Rate FiO2 10/24/17 02:46 81 16 152/75 (100) 99 Room Air 10/24/17 00:07 18 98 Room Air 10/23/17 23:50 98.7 83 18 176/77 (110) 97 Room Air Physical Exam GENERAL: This is a well-nourished, well-developed patient, looks to be quite weak. SKIN: No rashes, ecchymoses or lesions. Cool and dry. HEAD: Atraumatic. Normocephalic. No temporal or scalp tenderness. EYES: No scleral icterus. No injection or drainage. ENT: Nose without bleeding, purulent drainage or septal hematoma. Airway patent. NECK: Trachea midline. No JVD Supple, nontender, no meningeal signs. CARDIOVASCULAR: Regular rate and rhythm without murmurs, gallops, or rubs. RESPIRATORY: Clear to auscultation. Breath sounds equal bilaterally. No wheezes , rales, or rhonchi. GASTROINTESTINAL: Abdomen soft, non-tender, nondistended. No guarding. MUSCULOSKELETAL: Extremities without clubbing, cyanosis, or edema. No calf tenderness. NEUROLOGICAL: Awake and alert. Motor and sensory grossly within normal limits. Normal speech. Laboratory Laboratory Tests Test 10/24/17 00:00 White Blood Count 13.9 Red Blood Count 4.05 Hemoglobin 11.9 Hematocrit 35.7 Mean Corpuscular Volume 88.3 Mean Corpuscular Hemoglobin 29.5 Mean Corpuscular Hemoglobin Concent 33.4 Red Cell Distribution Width 14.1 Platelet Count 436 Mean Platelet Volume 7.4 Neutrophils (%) (Auto) 92.2 Lymphocytes (%) (Auto) 3.4 Monocytes (%) (Auto) 3.7 Eosinophils (%) (Auto) 0.1 Basophils (%) (Auto) 0.6 Neutrophils # (Auto) 12.8 Lymphocytes # (Auto) 0.5 Monocytes # (Auto) 0.5 Eosinophils # (Auto) 0.0 Basophils # (Auto) 0.1 CBC Comment DIFF FINAL Differential Comment Blood Urea Nitrogen 21 Creatinine 2.29 Random Glucose 136 Total Protein 8.3 Albumin 4.1 Calcium Level 9.1 Alkaline Phosphatase 90 Aspartate Amino Transf (AST/SGOT) 14 Alanine Aminotransferase (ALT/SGPT) 14 Total Bilirubin 0.6 Sodium Level 140 Potassium Level 5.1 Chloride Level 105 Carbon Dioxide Level 27.6 Anion Gap 7 Estimat Glomerular Filtration Rate 33 Lipase 125 Result Diagram: 10/24/17 0000 10/24/17 0000 Imaging Last 48 hours Impressions Chest X-Ray 10/24/17 0000 Signed Impressions: Service Date/Time: Tuesday, October 24, 2017 06:11 - CONCLUSION: No acute disease. Henry Knight MD Abdomen/Pelvis CT 10/24/17 0000 Signed Impressions: Service Date/Time: Tuesday, October 24, 2017 01:52 - CONCLUSION: 1. Anastomosis sutures are seen. There is one in the rectal region. The bowel just proximal to this does appear thickened. 2. Compressive changes at the L2-L4 vertebral bodies. 3. Sclerosis at the right seventh, eighth, and 11th ribs with a pathological fracture at the eighth rib. Henry Knight MD Abdomen X-Ray 10/23/17 8270 Signed Impressions: Service Date/Time: Monday, October 23, 2017 23:56 - CONCLUSION: 1. No acute abnormality seen. 2. Suspected compressive changes at the lumbar spine especially L4. Henry Knight MD Caprini VTE Risk Assessment Caprini VTE Risk Assessment: Mod/High Risk (score >= 2) Caprini Risk Assessment Model Point Value = 1 Point Value = 2 Point Value = 3 Point Value = 5 Age 41-60 Minor surgery BMI > 25 kg/m2 Swollen legs Varicose veins or History of unexplained or recurrent spontaneous Oral contraceptives or hormone replacement Sepsis (< 1 month) Serious lung disease, including pneumonia (< 1 month) Abnormal pulmonary function Acute myocardial infarction Congestive heart failure (< 1 month) History of inflammatory bowel disease Medical patient at bed rest Age 61-74 Arthroscopic surgery Major open surgery (> 45 min) Laparoscopic surgery (> 45 min) Malignancy Confined to bed (> 72 hours) Immobilizing plaster cast Central venous access Age >= 75 History of VTE Family history of VTE Factor V Leiden Prothrombin [id number] Lupus anticoagulant Anticardiolipin antibodies Elevated serum homocysteine Heparin-induced thrombocytopenia Other congenital or acquired thrombophilia Stroke (< 1 month) Elective arthroplasty Hip, pelvis, or leg fracture Acute spinal cord injury (< 1 month) Prophylaxis Regimen Total Risk Factor Score Risk Level Prophylaxis Regimen 0-1 Low Early ambulation 2 Moderate Order ONE of the following: *Sequential Compression Device (SCD) *Heparin 5000 units SQ BID 3-4 Higher Order ONE of the following medications: *Heparin 5000 units SQ TID *Enoxaparin/Lovenox 40 mg SQ daily (WT < 150 kg, CrCl > 30 mL/min) *Enoxaparin/Lovenox 30 mg SQ daily (WT < 150 kg, CrCl > 10-29 mL/min) *Enoxaparin/Lovenox 30 mg SQ BID (WT < 150 kg, CrCl > 30 mL/min) AND/OR *Sequential Compression Device (SCD) 5 or more Highest Order ONE of the following medications: *Heparin 5000 units SQ TID (Preferred with Epidurals) *Enoxaparin/Lovenox 40 mg SQ daily (WT < 150 kg, CrCl > 30 mL/min) *Enoxaparin/Lovenox 30 mg SQ daily (WT < 150 kg, CrCl > 10-29 mL/min) *Enoxaparin/Lovenox 30 mg SQ BID (WT < 150 kg, CrCl > 30 mL/min) AND *Sequential Compression Device (SCD) Assessment and Plan Assessment and Plan Impression: Generalized weakness Recent sinus congestion. Suspect viral syndrome. Possible influenza. Leukocytosis with left shift. In the chemotherapy patient. Possible underlying infection. Possible dehydration. Constipation of [address] abdomen findings showing thickening of: Above the suture anastomosis Acute kidney injury on chronic kidney disease. Likely secondary to dehydration. Hypertension CKD CVA- walks with a walker multiple myeloma- on chemo- last Sunday dr Neri Colonic CA status post resection, chemotherapy and radiation Prostate CA status post surgery Plan: IV hydration with normal saline at 84 cc per hour. PT evaluation Influenza test. Chest x-ray. UA/urine culture. Repeat CBC and BMP post hydration to follow for improvement of leukocytosis and renal function. If this is improved, will not start patient on antibiotics. If no improvement of leukocytosis or if patient spikes fever, will likely need to start him on empiric antibiotics given that he is a chemotherapy patient. Resume home meds. DVT prophylaxis with heparin. Discussed Condition With Patient, daughter at the bedside, ER physician, nursing staff Johnathan Bermgan MD Oct 24, 2017 05:41
[2017-10-24] MEDS ORDERED: PILL SPLITTER OTHER PRN (06:00)
[2017-10-24] MEDS: SODIUM CHLOR 0.9% 1000 ML INJ 1,000 ML IV SCH ×2 (06:14→17:55)
--- NOTE | 2017-10-24 06:46 | RADRPT ---
EXAM DATE/TIME: 10/24/2017 06:11 [facility] COMPARISON: CHEST SINGLE AP, August 21, 2017, 11:45. INDICATIONS : Short of breath. MEDICAL HISTORY : None. SURGICAL HISTORY : None. ENCOUNTER: Initial ACUITY: 1 day PAIN SCORE: 0/10 LOCATION: Bilateral chest FINDINGS: There is an [id number] seen in the right chest. The heart size is normal. The lungs are grossly cl ear. There are several skin folds seen in the left upper chest and at the lateral right mid chest. Louise ng markings are seen beyond these regions. CONCLUSION: No acute disease. Henry Knight MD on October 24, 2017 at 6:42 Board Certified Radiologist. This report was verified electronically.
[2017-10-24] MEDS: SODIUM CHLORIDE 0.9% FLUSH 10 ML FLUSH IV FLUSH SCH ×2 (09:00→20:31)
[2017-10-24] MEDS: LISINOPRIL 5 MG TAB PO SCH (09:25)
[2017-10-24] MEDS: CLOPIDOGREL 75 MG TAB PO SCH (09:25)
[2017-10-24] MEDS: ASPIRIN EC 81 MG TABEC PO SCH (09:25)
[2017-10-24] MEDS: PRAVASTATIN SOD 10 MG TAB PO SCH (09:25)
[2017-10-24] MEDS: DOCUSATE SODIUM 100 MG/10 ML UDC PO SCH ×2 (09:25→20:30)
[2017-10-24] MEDS: NEBIVOLOL 10 MG TAB PO SCH (09:26)
[2017-10-24 09:42] LABS: BILIRUBIN, URINE NEG (NEG); BLOOD, URINE NEG (NEG); GLUCOSE,URINE NEG (NEG); HYALINE CAST, URINE 3 /lpf (RARE); KETONE, URINE NEG (NEG); MUCUS URINE FEW /lpf (OCC); NITRITE,URINE NEG (NEG); PH, URINE 6.5 (5.0-8.5); SQUAMOUS EPITHELIAL CELL URINE 1 /hpf (0-5); URINE COLOR YELLOW (YELLW/STRAW); URINE LEUKOCYTE ESTERASE MOD (NEG)
[2017-10-24 09:48] LABS: AUTOMATED NEUTROPHIL # 8.9 TH/MM3 (1.8-7.7); BASOPHIL # 0.1 TH/MM3 (0-0.2); BASOPHIL % 0.5 % (0.0-2.0); EOSINOPHIL # 0.1 TH/MM3 (0-0.4); EOSINOPHIL % 0.5 % (0.0-4.0); HEMATOCRIT 31.2 % (39.0-51.0); HEMOGLOBIN 10.6 GM/DL (13.0-17.0); LYMPH % 8.1 % (9.0-44.0); LYMPHOCYTE # 0.8 TH/MM3 (1.0-4.8); MEAN CELL VOLUME 88.6 FL (80.0-100.0); MEAN CORPUSCULAR HGB CONC 33.9 % (32.0-36.0); MEAN PLATELET VOLUME 7.3 FL (7.0-11.0); MONO % 6.6 % (0.0-8.0); MONOCYTE # 0.7 TH/MM3 (0-0.9); NEUT % 84.3 % (16.0-70.0); PLATELET COUNT 392 TH/MM3 (150-450); RED BLOOD COUNT 3.52 MIL/MM3 (4.50-5.90); WHITE BLOOD COUNT 10.5 TH/MM3 (4.0-11.0)
[2017-10-24 10:26] LABS: BICARBONATE 28.4 MEQ/L (21.0-32.0); CALCIUM 8.5 MG/DL (8.5-10.1); CREATININE 1.97 MG/DL (0.60-1.30)
[2017-10-25] VITALS (10 sets, daily range): BP systolic 119–162; BP diastolic 58–73; PULSE 60–71; RESP 16–18; TEMP 97.7–98.8; O2SAT 96–100
[2017-10-25 05:08] LABS: AUTOMATED NEUTROPHIL # 6.4 TH/MM3 (1.8-7.7); BASOPHIL % 0.3 % (0.0-2.0); EOSINOPHIL # 0.4 TH/MM3 (0-0.4); EOSINOPHIL % 4.4 % (0.0-4.0); HEMATOCRIT 30.7 % (39.0-51.0); HEMOGLOBIN 10.4 GM/DL (13.0-17.0); LYMPH % 9.4 % (9.0-44.0); LYMPHOCYTE # 0.8 TH/MM3 (1.0-4.8); MEAN CORPUSCULAR HEMOGLOBIN 30.1 PG (27.0-34.0); MEAN CORPUSCULAR HGB CONC 33.8 % (32.0-36.0); MEAN PLATELET VOLUME 7.5 FL (7.0-11.0); MONO % 8.4 % (0.0-8.0); MONOCYTE # 0.7 TH/MM3 (0-0.9); NEUT % 77.5 % (16.0-70.0); PLATELET COUNT 373 TH/MM3 (150-450); RED BLOOD COUNT 3.45 MIL/MM3 (4.50-5.90); RED CELL DISTRIBUTION WIDTH 14.4 % (11.6-17.2); WHITE BLOOD COUNT 8.2 TH/MM3 (4.0-11.0)
[2017-10-25] MEDS: SODIUM CHLOR 0.9% 1000 ML INJ 1,000 ML IV SCH ×2 (05:25→17:45)
[2017-10-25 05:32] LABS: BICARBONATE 25.3 MEQ/L (21.0-32.0); CALCIUM 8.3 MG/DL (8.5-10.1); CREATININE 1.6 MG/DL (0.60-1.30)
[2017-10-25] MEDS: SODIUM CHLORIDE 0.9% FLUSH 10 ML FLUSH IV FLUSH SCH ×2 (09:00→20:11)
[2017-10-25] MEDS ORDERED: MORPHINE SULFATE 2 MG/ML INJ IV ONE (09:15)
[2017-10-25] MEDS: NEBIVOLOL 10 MG TAB PO SCH (09:30)
[2017-10-25] MEDS: DOCUSATE SODIUM 100 MG/10 ML UDC PO SCH ×2 (09:32→20:10)
[2017-10-25] MEDS: PRAVASTATIN SOD 10 MG TAB PO SCH (09:32)
[2017-10-25] MEDS: ASPIRIN EC 81 MG TABEC PO SCH (09:33)
[2017-10-25] MEDS: CLOPIDOGREL 75 MG TAB PO SCH (09:33)
[2017-10-25] MEDS: LISINOPRIL 5 MG TAB PO SCH (09:33)
--- NOTE | 2017-10-25 14:18 | HHI.PR ---
Subjective Remarks Resting in bed comfortably Reporting moving bowel No abdominal pain nausea vomiting Objective Vitals Vital Signs Date Time Temp Pulse Resp B/P (MAP) Pulse Ox O2 Delivery O2 Flow Rate FiO2 10/25/17 12:02 98.4 68 16 119/58 (78) 100 10/25/17 08:03 98.0 67 16 162/73 (102) 100 10/25/17 08:00 61 10/25/17 04:00 98.3 60 16 128/62 (84) 96 10/25/17 04:00 63 10/25/17 04:00 Room Air 10/25/17 00:00 66 10/25/17 00:00 Room Air 10/25/17 00:00 98.8 71 18 157/71 (99) 98 10/24/17 20:00 99.1 60 18 138/63 (88) 98 10/24/17 19:59 71 10/24/17 19:58 Room Air 10/24/17 16:03 98.4 77 17 123/58 (79) 100 I/O 10/24/17 10/24/17 10/24/17 10/25/17 10/25/17 10/25/17 07:00 15:00 23:00 07:00 15:00 23:00 Intake Total 500 ml 1000 ml 1404 ml Balance 500 ml 1000 ml 1404 ml Intake Oral 480 ml IV Total 500 ml 1000 ml 924 ml # Voids 1 4 # Bowel Movements 3 Result Diagram: 10/25/17 0334 10/25/17 0334 Objective Remarks GENERAL: This is a well-nourished, well-developed patient, in no apparent distress. SKIN: No rashes, warm and dry HEAD: Atraumatic. Normocephalic. EYES: Pupils equal round and reactive. Extraocular motions intact. No scleral icterus. ENT: Nose without bleeding, or drainage, Airway patent. NECK: Trachea midline. Supple CARDIOVASCULAR: Regular rate and rhythm without murmurs, gallops, or rubs. RESPIRATORY: Fair air entry bilaterally. No wheezes, rales, or rhonchi. GASTROINTESTINAL: Abdomen soft, non-tender, nondistended. Positive bowel sounds MUSCULOSKELETAL: Extremities without clubbing, cyanosis, or edema. Pedal pulses appreciated NEUROLOGICAL: Awake and alert. Moves all extremity. Normal speech.no focal neurological deficit A/P Assessment and Plan Generalized weakness Dehydration Leukocytosis with left shift. In immunocompromised patient on chemotherapy >> resolved Constipation of 3 days duration rule out ileus Acute kidney injury on chronic kidney disease. Likely secondary to dehydration. Hypertension CKD CVA- walks with a walker multiple myeloma- on chemo- last Sunday dr Neri Colonic CA status post resection, chemotherapy and radiation Prostate CA status post surgery Plan: Continue IV hydration PT evaluation Influenza test. Negative Chest x-ray. Reviewed by me UA/urine culture. Monitor CBC and BMP. Resume home meds. DVT prophylaxis with heparin. Discharge Planning In a.m. if continued to improve, gradually increase diet Alex Garcia MD Oct 25, 2017 14:18
[2017-10-26] VITALS (12 sets, daily range): BP systolic 118–165; BP diastolic 59–69; PULSE 56–72; RESP 16–21; TEMP 97.6–99.1; O2SAT 95–99
[2017-10-26] MEDS: SODIUM CHLOR 0.9% 1000 ML INJ 1,000 ML IV SCH ×2 (04:08→17:32)
[2017-10-26 08:11] LABS: AUTOMATED NEUTROPHIL # 4.6 TH/MM3 (1.8-7.7); BASOPHIL % 0.6 % (0.0-2.0); EOSINOPHIL # 0.5 TH/MM3 (0-0.4); EOSINOPHIL % 7.2 % (0.0-4.0); HEMATOCRIT 29.1 % (39.0-51.0); HEMOGLOBIN 9.7 GM/DL (13.0-17.0); LYMPH % 12.2 % (9.0-44.0); LYMPHOCYTE # 0.8 TH/MM3 (1.0-4.8); MEAN CELL VOLUME 88.9 FL (80.0-100.0); MEAN CORPUSCULAR HEMOGLOBIN 29.5 PG (27.0-34.0); MEAN CORPUSCULAR HGB CONC 33.2 % (32.0-36.0); MEAN PLATELET VOLUME 7.1 FL (7.0-11.0); MONO % 8.2 % (0.0-8.0); MONOCYTE # 0.5 TH/MM3 (0-0.9); NEUT % 71.8 % (16.0-70.0); PLATELET COUNT 337 TH/MM3 (150-450); RED BLOOD COUNT 3.28 MIL/MM3 (4.50-5.90); RED CELL DISTRIBUTION WIDTH 13.9 % (11.6-17.2); WHITE BLOOD COUNT 6.4 TH/MM3 (4.0-11.0)
[2017-10-26 08:33] LABS: BICARBONATE 23.1 MEQ/L (21.0-32.0); CALCIUM 8.2 MG/DL (8.5-10.1); CREATININE 1.39 MG/DL (0.60-1.30)
[2017-10-26] MEDS: SODIUM CHLORIDE 0.9% FLUSH 10 ML FLUSH IV FLUSH SCH ×2 (08:46→21:00)
[2017-10-26] MEDS: DOCUSATE SODIUM 100 MG/10 ML UDC PO SCH ×2 (08:47→21:06)
[2017-10-26] MEDS: ASPIRIN EC 81 MG TABEC PO SCH (08:47)
[2017-10-26] MEDS: CLOPIDOGREL 75 MG TAB PO SCH (08:47)
[2017-10-26] MEDS: LISINOPRIL 5 MG TAB PO SCH (08:47)
[2017-10-26] MEDS: PRAVASTATIN SOD 10 MG TAB PO SCH (08:48)
[2017-10-26] MEDS: NEBIVOLOL 10 MG TAB PO SCH (08:48)
--- NOTE | 2017-10-26 12:39 | HHI.PR ---
Subjective Remarks patient still having desaturation with 79% on exertion, creatinine 1.6 dropped to 1.39 with good urine output still complaining of significant abdominal pain, UA culture came back positive for Escherichia coli and Citrobacter Objective Vitals Vital Signs Date Time Temp Pulse Resp B/P (MAP) Pulse Ox O2 Delivery O2 Flow Rate FiO2 10/26/17 08:03 97.8 64 21 165/69 (101) 98 10/26/17 08:00 66 10/26/17 05:57 56 10/26/17 04:00 98.5 65 18 153/67 (95) 95 10/26/17 04:00 Room Air 10/26/17 00:00 98.3 63 16 141/65 (90) 98 10/26/17 00:00 Room Air 10/25/17 23:45 63 10/25/17 20:00 98.4 60 18 138/64 (88) 96 10/25/17 20:00 Room Air 10/25/17 19:46 62 10/25/17 16:03 97.7 65 16 134/61 (85) 98 10/25/17 16:00 62 I/O 10/25/17 10/25/17 10/25/17 10/26/17 10/26/17 10/26/17 07:00 15:00 23:00 07:00 15:00 23:00 Intake Total 1404 ml 420 ml 240 ml Output Total 1000 ml 300 ml Balance 1404 ml -580 ml -60 ml Intake Oral 480 ml 420 ml 240 ml IV Total 924 ml Output Urine Total 1000 ml 300 ml # Voids 4 3 # Bowel Movements 3 2 0 Result Diagram: 10/26/17 0634 10/26/17 0634 Objective Remarks GENERAL: This is a well-nourished, well-developed patient, in no apparent distress. SKIN: No rashes, warm and dry HEAD: Atraumatic. Normocephalic. EYES: Pupils equal round and reactive. Extraocular motions intact. No scleral icterus. ENT: Nose without bleeding, or drainage, Airway patent. NECK: Trachea midline. Supple CARDIOVASCULAR: Regular rate and rhythm without murmurs, gallops, or rubs. RESPIRATORY: Fair air entry bilaterally. No wheezes, rales, or rhonchi. GASTROINTESTINAL: Abdomen soft, non-tender, nondistended. Positive bowel sounds MUSCULOSKELETAL: Extremities without clubbing, cyanosis, or edema. Pedal pulses appreciated NEUROLOGICAL: Awake and alert. Moves all extremity. Normal speech.no focal neurological deficit A/P Assessment and Plan Generalized weakness Dehydration Leukocytosis with left shift. In immunocompromised patient on chemotherapy UTI with Escherichia coli and Citrobacter Constipation of 3 days duration rule out ileus Acute kidney injury on chronic kidney disease. Likely secondary to dehydration. Hypertension CKD CVA- walks with a walker multiple myeloma- on chemo- last Sunday dr Neri Colonic CA status post resection, chemotherapy and radiation Prostate CA status post surgery Plan: considering his history of colon resection, radiation and chemotherapy, and continuous abdominal pain now with a urine infection will also surgery to give opinion rule out any intra-abdominal etiology Continue IV hydration PT evaluation Influenza test. Negative Chest x-ray. Reviewed by me UA/urine culture.positive for Escherichia coli and Citrobacter Monitor CBC and BMP. Resume home meds. DVT prophylaxis with heparin. Discharge Planning In a.m. if continued to improve, gradually increase diet Alex Garcia MD Oct 26, 2017 12:39
[2017-10-26] MEDS: CIPROFLOXACIN 500 MG TAB PO SCH ×2 (13:04→21:06)
[2017-10-27] VITALS: BP 167/71; PULSE 62; RESP 16; TEMP 99; O2SAT 97
[2017-10-27 03:47] VITALS: PULSE 62
[2017-10-27 04:00] VITALS: BP 159/67; PULSE 62; RESP 16; TEMP 98.6; O2SAT 97
[2017-10-27] MEDS: SODIUM CHLOR 0.9% 1000 ML INJ 1,000 ML IV SCH (05:30)
[2017-10-27 08:00] VITALS: PULSE 69
[2017-10-27 08:02] VITALS: BP 156/72; PULSE 79; RESP 21; TEMP 98.2; O2SAT 96
--- NOTE | 2017-10-27 08:11 | RADRPT ---
EXAM DATE/TIME: 10/27/2017 07:45 [facility] COMPARISON: ABDOMEN KUB ONLY, October 23, 2017, 23:56. CT ABDOMEN & PELVIS W/O CONTRAST, October 24, 2017, 1:52. INDICATIONS : Evaluate for obstruction. Constipation. MEDICAL HISTORY : Carcinoma, colon. Hypertension Diabetes. SURGICAL HISTORY : Colostomy. ENCOUNTER: Subsequent ACUITY: 4 - 6 days PAIN SCORE: 3/10 LOCATION: Bilateral Abdomen. FINDINGS: The bowel gas is nonspecific. There are no signs of obstruction or free air for technique. No defini te calcified stones are identified for technique. CONCLUSION: Nonspecific abdomen. Alexandro Meléndez MD on October 27, 2017 at 8:08 Board Certified Radiologist. This report was verified electronically.
--- NOTE | 2017-10-27 08:32 | MB ---
cc: RAKEL PARHAM M.D. DATE OF CONSULTATION: 10/26/2017 CHIEF COMPLAINT Abdominal pain, urinary tract infection, constipation. HISTORY OF PRESENT ILLNESS This patient says that he was admitted to the hospital on October 23, 2017 with some lower abdominal pain. He was treated for constipation which was seen on his admitting CT scan, and had a large amount of stool discharge. He says that he feels much better at this time, although he still has some mild lingering lower abdominal discomfort. He was also found to have a 50,000-75,000 colonies of E-coli and Citrobacter in his urine. For this reason I was asked to see the patient to rule out obstruction or even a colovesical fistula. The patient is 23 years status post rectal cancer resection with a colorectal J pouch procedure and has done well since that time according to the patient. Last colonoscopy was by Dr. Son was several years ago and was normal. The patient has recently been treated by Dr. Ag Neri for multiple myeloma with chemotherapy with his last chemotherapy about a week ago. The patient says that he has no dysuria at this time and looking at his urine in his urinal, it is quite clear. He does have baseline renal insufficiency, probably due to his age and myeloma. PAST MEDICAL HISTORY, SOCIAL HISTORY AND FAMILY HISTORY, REVIEW OF SYSTEMS: Otherwise negative. PHYSICAL EXAMINATION GENERAL: Well-developed thin male skin is warm and dry. HEAD, EYES, EARS, NOSE, AND THROAT: Extraocular muscles intact. NECK: Supple. ABDOMEN: flat, soft, really minimally tender in the lower abdomen. No masses are palpable. RECTUM: Rectal examination digital exam is normal I can palpate the anastomosis and the colorectal J pouch anastomotic rings that we did 21 years ago. Anteriorly there is a slight ridge but this was all palpably normal. There is no blood, and there is minimal amount of stool. EXTREMITIES: Range of motion within normal and normal limits. NEUROLOGIC: Grossly normal. IMPRESSION 1. 23 years status post rectal resection with a colorectal J pouch by Dr. Cooper Son. 2. Recent bouts of constipation. 3. Urinary tract infection. PLAN I do not think that this patient has any sort of colovesical fistula. The patient denies any hematuria or fecaluria his urine is quite clear appearance. His urinary tract infection may stem from the time he from the point where he received his enemas and laxatives and had profuse diarrhea and has been in the diaper since that time including now all. I will plan on obtaining an abdominal x-ray in the morning on 10/27/2017 and from my standpoint, he can be discharged at any time. MD NIKITA Garza/stefani /7:45 AM /7:59 AM
[2017-10-27] MEDS: CIPROFLOXACIN 500 MG TAB PO SCH (08:41)
[2017-10-27] MEDS: NEBIVOLOL 10 MG TAB PO SCH (08:41)
[2017-10-27] MEDS: PRAVASTATIN SOD 10 MG TAB PO SCH (08:41)
[2017-10-27] MEDS: ASPIRIN EC 81 MG TABEC PO SCH (08:42)
[2017-10-27] MEDS: CLOPIDOGREL 75 MG TAB PO SCH (08:42)
[2017-10-27] MEDS: LISINOPRIL 5 MG TAB PO SCH (08:42)
[2017-10-27] MEDS: DOCUSATE SODIUM 100 MG/10 ML UDC PO SCH (08:44)
[2017-10-27] MEDS ORDERED: CIPR-9 PO (09:07)
[2017-10-27] MEDS ORDERED: LACTCHW3 CHEW (09:07)
--- NOTE | 2017-10-27 11:09 | HHI.PR ---
Subjective . No complaints. Stooling Objective . Abd: flat,soft,non tender. Assessment/Plan . Stable D/C today. F/U Dr Son as needed. Henry Connolly MD Oct 27, 2017 11:09
[2017-10-27 12:02] VITALS: BP 128/60; PULSE 70; RESP 21; TEMP 98.3; O2SAT 97
--- NOTE | 2017-10-27 18:24 | HHI.DS ---
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 Patient's daughter was at the bedside as well and provided some history. Patient reported that he's been constipated for 3 days. Denies prior history of diarrhea. He has mid abdominal pain together with constipation. Denies any nausea or vomiting. He denies any recent antibiotics use. Daughter stated the patient was so weak because of this constipation and was really not able to ambulate at home at all. Usually patient lives by himself and is capable of doing all his daily activities. He is also still driving. In the emergency room, patient was given laxatives/Fleet enema and he did make his bowels. However patient was basically soaked in his own feces and urine while in emergency room. He is unable to tell me whether this was because he did not get help on time to move his bowels alright with her because he was too weak and lost control of his bowels and urine. He has had CT abdomen done in emergency room which was officially read by radiologist. However ER M.Crista. thought that patient may have ileus based on CT findings and thus referred for medical admission. Upon further questioning, patient reports of "head cold" sinus congestion for the past one week. Daughter at the bedside stated the patient was dripping from his nose all those days. This was also when his weakness started. Patient is on chemotherapy for treatment of his multiple myeloma. He states that his last dose was on Sunday. Oncology notes reviewed. Upon my arrival as well, patient looks to be quite weak. He is soaked in his own urine and feces. When the nurse cleaned him up and stood him up by the bedside, he was able to get up but looked quite unsteady and weak. CBC/BMP: 10/26/17 0634 10/26/17 0634 Significant Findings Laboratory Tests Test 10/25/17 03:34 10/26/17 06:34 Red Blood Count 3.45 MIL/MM3 (4.50-5.90) 3.28 MIL/MM3 (4.50-5.90) Hemoglobin 10.4 GM/DL (13.0-17.0) 9.7 GM/DL (13.0-17.0) Hematocrit 30.7 % (39.0-51.0) 29.1 % (39.0-51.0) Neutrophils (%) (Auto) 77.5 % (16.0-70.0) 71.8 % (16.0-70.0) Monocytes (%) (Auto) 8.4 % (0.0-8.0) 8.2 % (0.0-8.0) Eosinophils (%) (Auto) 4.4 % (0.0-4.0) 7.2 % (0.0-4.0) Lymphocytes # (Auto) 0.8 TH/MM3 (1.0-4.8) 0.8 TH/MM3 (1.0-4.8) Blood Urea Nitrogen 22 MG/DL (7-18) Creatinine 1.60 MG/DL (0.60-1.30) 1.39 MG/DL (0.60-1.30) Calcium Level 8.3 MG/DL (8.5-10.1) 8.2 MG/DL (8.5-10.1) Chloride Level 111 MEQ/L (98-107) 109 MEQ/L (98-107) Estimat Glomerular Filtration Rate 50 ML/MIN (>89) 59 ML/MIN (>89) Eosinophils # (Auto) 0.5 TH/MM3 (0-0.4) PE at Discharge GENERAL: This is a well-nourished, well-developed patient, in no apparent distress. SKIN: No rashes, warm and dry HEAD: Atraumatic. Normocephalic. EYES: Pupils equal round and reactive. Extraocular motions intact. No scleral icterus. ENT: Nose without bleeding, or drainage, Airway patent. NECK: Trachea midline. Supple CARDIOVASCULAR: Regular rate and rhythm without murmurs, gallops, or rubs. RESPIRATORY: Fair air entry bilaterally. No wheezes, rales, or rhonchi. GASTROINTESTINAL: Abdomen soft, non-tender, nondistended. Positive bowel sounds MUSCULOSKELETAL: Extremities without clubbing, cyanosis, or edema. Pedal pulses appreciated NEUROLOGICAL: Awake and alert. Moves all extremity. Normal speech.no focal neurological deficit Hospital Course Patient admitted for generalized weakness dehydration leukocytosis UTI and constipation along with acute kidney failure, started on aggressive hydration, he continued to have abdominal pain, colorectal surgeon consulted did not think it's related to any intra-abdominal etiology, urine culture came back positive for Escherichia coli and Citrobacter which is sensitive to Cipro which was patient placed on, gradually patient stabilize he was ready to be discharged and follow-up as an outpatient. [id number] encounter performed with the patient on discharge day, as well as physical exam, summary of hospitalization course and postdischarge plan has been D/W the patient. D/W nurse D/W classification case manager Discharge medications reviewed and printed and signed, post discharge follow up visit with PCP and other specialist as well as Brief hospital course and discharge summary has been placed Pt Condition on Discharge: Fair Discharge Disposition: Discharge Home Discharge Time: > 30 minutes Discharge Instructions DIET: Follow Instructions for: Heart Healthy Diet Activities you can perform: Weight Bearing as Fadi New Medications: Lactobacillus Acidophilus (Lactinex) 1 Chew 1 TAB CHEW BID for Nutritional Supplement for 30 Days, #60 TAB 0 Refills Ciprofloxacin (Cipro) 500 Mg Tab 500 MG PO Q12HR for uti, #10 TAB Continued Medications: Albuterol 18 GM Inh (Ventolin Hfa 18 GM Inh) 90 Mcg/Act Aer 1 PUFF INH Q4H PRN for SHORTNESS OF BREATH, #1 INHALER 0 Refills Amlodipine (Amlodipine) 10 Mg Tab 10 MG PO DAILY for Blood Pressure Management, #30 TAB [address] (Aspirin 81) 81 Mg Tabdr 81 MG PO DAILY, TAB 0 Refills Clopidogrel (Plavix) 75 Mg Tab 75 MG PO DAILY for Blood Clot Prevention, #30 TAB 0 Refills Lisinopril (Lisinopril) 2.5 Mg Tab 2.5 MG PO DAILY, #30 TAB 0 Refills Nebivolol (Bystolic) 10 Mg Tab 10 MG PO DAILY for Blood Pressure Management, #30 TAB 0 Refills Ondansetron (Ondansetron) 8 Mg Tab 8 MG PO TID for Nausea/Vomiting, TAB 0 Refills Pravastatin (Pravastatin) 10 Mg Tab 10 MG PO DAILY for Cholesterol Management, #30 TAB 0 Refills Alex Garcia MD Oct 27, 2017 18:24
== END 2017-10-27 14:39 | disposition home or self-care (01) ==
LOC: NEPC 23:37 → NEDA 10-24 02:51 → NEDH 10-24 06:49 → N04A 10-24 13:51
PROVIDERS: ADMIT Hospitalist; ATTEND Hospitalist
DX: C18.9 Malignant neoplasm of colon, unspecified (principal); E86.0 Dehydration; D64.9 Anemia, unspecified; N39.0 Urinary tract infection, site not specified; B96.20 Unspecified Escherichia coli [E. coli] as the cause of diseases classified elsewhere; C90.00 Multiple myeloma not having achieved remission; I12.9 Hypertensive chronic kidney disease with stage 1 through stage 4 chronic kidney disease, or unspecified chronic kidney disease; N18.9 Chronic kidney disease, unspecified; N17.9 Acute kidney failure, unspecified; K56.7 Ileus, unspecified; E11.22 Type 2 diabetes mellitus with diabetic chronic kidney disease; Z86.73 Personal history of transient ischemic attack (TIA), and cerebral infarction without residual deficits; Z90.49 Acquired absence of other specified parts of digestive tract; Z93.3 Colostomy status; Z99.81 Dependence on supplemental oxygen; Z87.891 Personal history of nicotine dependence
CPT/HCPCS: 71045; 74018; 74019; 74176; 80048; 80053; 81001; 83690; 85025; 87040; 87077; 87086; 87186; 87804; 96361; 96374; 97110; 97161; 97530; 99285; G0378; G8987; G8988; J2270; J7030; J7040

== ENCOUNTER 2017-11-27 06:37 | Day surgery (SDC) | payer OTHER ==
[~2017-11-27] VITALS: Ht 188 cm; Wt 66.4 kg
[~2017-11-27 06:37] MED LIST changes: +CIPR-9 PO; +LACTCHW3 CHEW; -oxygen NAS.CANULA
[2017-11-27 07:06] VITALS: BP 139/67; PULSE 73; RESP 20; TEMP 97.6; O2SAT 97
[2017-11-27] MEDS ORDERED: LIDOCAINE HCL 1% 20 ML VIAL ONE (07:06)
[2017-11-27 07:55] LABS: BASOPHIL % 0.6 % (0.0-2.0); EOSINOPHIL # 0.3 TH/MM3 (0-0.4); EOSINOPHIL % 6.3 % (0.0-4.0); HEMATOCRIT 28.9 % (39.0-51.0); HEMOGLOBIN 9.6 GM/DL (13.0-17.0); LYMPH % 20.1 % (9.0-44.0); MEAN CELL VOLUME 88.2 FL (80.0-100.0); MEAN CORPUSCULAR HEMOGLOBIN 29.5 PG (27.0-34.0); MEAN CORPUSCULAR HGB CONC 33.4 % (32.0-36.0); MEAN PLATELET VOLUME 7.1 FL (7.0-11.0); MONO % 11.3 % (0.0-8.0); MONOCYTE # 0.5 TH/MM3 (0-0.9); NEUT % 61.7 % (16.0-70.0); PLATELET COUNT 261 TH/MM3 (150-450); RED BLOOD COUNT 3.27 MIL/MM3 (4.50-5.90); RED CELL DISTRIBUTION WIDTH 14.1 % (11.6-17.2); WHITE BLOOD COUNT 4.8 TH/MM3 (4.0-11.0)
[2017-11-27] MEDS ORDERED: SODIUM CHLOR 0.9% 1000 ML IV SCH (08:00)
[2017-11-27] MEDS ORDERED: MIDAZOLAM HCL 2 MG/2 ML VIAL ONE (08:04)
[2017-11-27] MEDS ORDERED: fentaNYL CITRATE 250 MCG/5 ML AMP ONE (08:04)
--- NOTE | 2017-11-27 08:32 | PD.RAD ---
Post CT Procedure Prog Note Pre Procedure Diagnosis: (1) Anemia (2) Colon cancer Post Procedure Diagnosis: (1) Anemia (2) Colon cancer Procedure Date: Nov 27, 2017 Supervising Radiologist: Baljeet Jenkins Anesthesia: Conscious Sedation Plan of Activity Patient to Unit: [facility] Patient Condition: Good See PACS Report for procedural detail/treatment Baljeet Jenkins MD Nov 27, 2017 08:32
[2017-11-27 08:45] VITALS: BP 153/74; PULSE 72; RESP 16; TEMP 98.5; O2SAT 98
[2017-11-27 09:00] VITALS: BP 145/75; PULSE 70; RESP 20; O2SAT 99
--- NOTE | 2017-11-27 09:13 | RADRPT ---
EXAM DATE/TIME: 11/27/2017 08:18 [facility] COMPARISON: CT NEEDLE BIOPSY BONE MARROW, April 17, 2017, 8:47. INDICATIONS : Multiple myeloma. SEDATION TIME: 30 minutes BIOPSY SITE: Right MEDICATION(S): 1.) 2 mg midazolam (Versed) IV 2.) 250 mcg fentanyl (Sublimaze) IV DEVICE(S): 1.) 11 gauge Bone marrow biopsy needle MEDICAL HISTORY : Hypertension. Diabetes mellitus type 2. Carcinoma, colon. Multiple myeloma SURGICAL HISTORY : Colostomy. ENCOUNTER: Initial ACUITY: 1 day PAIN SCORE: 0/10 LOCATION: Right A total of one core specimen(s) were obtained and sent to the laboratory for pathologic evaluation. PROCEDURE: 1. CT guided bone marrow biopsy. 2. Conscious sedation with continuous EKG and oximetry monitoring. 3. EKG and oximetry remained stable throughout the procedure. Prior to the procedure informed consent was obtained. Any appropriate prior imaging studies were rev iewed. Using automated exposure control and adjustment of the mA and/or kV according to patient size , radiation dose was kept as low as reasonably achievable to obtain optimal diagnostic quality images . DICOM format image data is available electronically for review and comparison. The site was prepped in a sterile fashion. Full sterile technique was used, including cap, mask, wojciech rile gloves and gown and a large sterile sheet. Hand hygiene and 2% chlorhexidine and/or betadine/al cohol prep was utilized per protocol for cutaneous antisepsis. The skin and subcutaneous tissues wer e infiltrated with local anesthetic solution. With CT guidance the previously identified target was localized. Biopsy was performed using the presc ribed needle as above. Following biopsy marrow aspiration was performed with repeat puncture. Adequa te hemostasis was obtained with compression at the puncture site. Follow-up CT scan reveals no hemorrhage. Conscious sedation was performed with the prescribed dosages and duration as above in the presence of an independent trained radiology nurse to assist in the monitoring of the patient. EKG and oximetry remained stable throughout the procedure. The patient tolerated the procedure well and there were no complications. The patient was sent to Radiology Outpatient Unit in stable condition. CONCLUSION: 1. Uncomplicated CT guided bone marrow aspirate. 2. Uncomplicated CT guided bone marrow biopsy. Baljeet Jenkins MD on November 27, 2017 at 9:11 Board Certified Radiologist. This report was verified electronically.
[2017-11-27 09:30] VITALS: BP 137/68; PULSE 69; RESP 20; O2SAT 98
[2017-11-27 10:00] VITALS: BP 136/72; PULSE 73; RESP 20; O2SAT 98
[2017-11-27] MEDS ORDERED: SODIUM CHLORIDE 0.9% FLUSH 10 ML FLUSH IV FLUSH PRN (10:15)
[2017-11-27 10:30] VITALS: BP 120/58; PULSE 70; RESP 20; O2SAT 99
== END 2017-11-27 11:00 | disposition home or self-care (01) ==
LOC: HRAD 06:37 → HRIP 06:42 → HRAD 11:00
PROVIDERS: ATTEND Internal Medicine
DX: C90.00 Multiple myeloma not having achieved remission (principal); D64.9 Anemia, unspecified; C18.9 Malignant neoplasm of colon, unspecified; E11.9 Type 2 diabetes mellitus without complications; R53.1 Weakness; I12.9 Hypertensive chronic kidney disease with stage 1 through stage 4 chronic kidney disease, or unspecified chronic kidney disease; N18.9 Chronic kidney disease, unspecified
CPT/HCPCS: 38222; 77012; 85025; 85097; 85610; 85730; 88184; 88185; 88237; 88264; 88280; 88305; 88311; 88313; 88377; 99152; 99153; C1830; J2250; J3010

== ENCOUNTER 2017-12-15 16:08 | Observation (INO) | payer OTHER ==
[~2017-12-15] VITALS: Ht 190.5 cm; Wt 75.0 kg
[~2017-12-15 16:08] MED LIST changes: -CIPR-9 PO; -LACTCHW3 CHEW
[2017-12-15 16:16] VITALS: BP 158/64; PULSE 56; RESP 18; TEMP 98; O2SAT 97
[2017-12-15 16:44] VITALS: BP 172/77; PULSE 56; RESP 16; TEMP 98; O2SAT 100
[2017-12-15] MEDS ORDERED: SODIUM CHLORIDE 0.9% FLUSH 10 ML FLUSH IVF PRN (17:00)
[2017-12-15 17:01] VITALS: RESP 17; O2SAT 100
--- NOTE | 2017-12-15 17:05 | PD ---
HPI Chief Complaint: General Weakness Time Seen by Provider: 16:37 Travel History International Travel<30 days: No Contact w/Intl Traveler<30days: No Traveled to known affect area: No History of Present Illness HPI 87-year-old male presents to the emergency department for evaluation of generalized weakness, pain to the arms and legs as well as shortness of breath. His family member at bedside states that he has been going downhill since he received chemotherapy on December 07, 2017. Patient has history of multiple myeloma since 2015. He is being treated with Velcade and dexamethasone. Patient also has history of anemia, collagen vascular disease, hypertension, kidney disease. Patient's oncologist is Dr. Haas. Patient reports dizziness, but denies syncope. He denies chest pain. Shortness of breath is worse with exertion. Patient states current pain is 5-6/10, aching, without radiation. He denies exacerbating or alleviating factors. Moderate severity. PFSH Past Medical History Cancer: Yes (COLON CANCER, [place]EMIA) Cardiovascular Problems: Yes Chemotherapy: Yes (shot ) Cerebrovascular Accident: Yes Diabetes: Yes Diminished Hearing: Yes ( [place]) Endocrine: No Gastrointestinal Disorders: Yes Genitourinary: No Hypertension: Yes Immune Disorder: No Implanted Vascular Access Dvce: Yes (right chest port) Musculoskeletal: Yes (right lower extremity weakness - intermittent) Neurologic: Yes Psychiatric: No Reproductive: No Respiratory: No Immunizations Current: No (denies ) Radiation Therapy: Yes Influenza Vaccination: Yes Past Surgical History Abdominal Surgery: Yes (COLOSTOMY WITH REVERSAL) AICD: No Eye Surgery: No Gynecologic Surgery: No Joint Replacement: No Oral Surgery: No Pacemaker: No Other Surgery: Yes Social History Alcohol Use: No Tobacco Use: No (QUIT 20 YEARS AGO) Substance Use: No Allergies-Medications (Allergen,Severity, Reaction): Coded Allergies: No Known Allergies (Verified Adverse Reaction, Unknown, 12/15/17) Reported Meds & Prescriptions Reported Meds & Active Scripts Active Reported Ventolin Hfa 18 GM Inh (Albuterol Sulfate) 90 Mcg/Act Aer 1 Puff INH Q4H PRN Aspirin 81 (Aspirin) 81 Mg Tabdr 81 Mg PO DAILY Plavix (Clopidogrel Bisulfate) 75 Mg Tab 75 Mg PO DAILY Ondansetron (Ondansetron HCl) 8 Mg Tab 8 Mg PO TID Pravastatin 10 Mg Tab 10 Mg PO DAILY Lisinopril 2.5 Mg Tab 2.5 Mg PO DAILY Bystolic (Nebivolol) 10 Mg Tab 10 Mg PO DAILY Amlodipine (Amlodipine Besylate) 10 Mg Tab 10 Mg PO DAILY Review of Systems Except as stated in HPI: all other systems reviewed are Neg Physical Exam Narrative GENERAL: Frail elderly male patient, afebrile. SKIN: Focused skin assessment warm/dry. HEAD: Normocephalic. Atraumatic. EYES: No scleral icterus. No injection or drainage. NECK: Supple, trachea midline. No JVD or lymphadenopathy. CARDIOVASCULAR: Regular rate and rhythm without murmurs, gallops, or rubs. RESPIRATORY: Breath sounds equal bilaterally. No accessory muscle use. Patient is tachypneic on exam. GASTROINTESTINAL: Abdomen soft, non-tender, nondistended. No abdominal pain to palpation. MUSCULOSKELETAL: No cyanosis, or edema. BACK: Nontender without obvious deformity. No CVA tenderness. Data Data Last Documented VS Vital Signs Date Time Temp Pulse Resp B/P (MAP) Pulse Ox O2 Delivery O2 Flow Rate FiO2 12/15/17 18:16 97.9 54 16 164/70 (101) 100 Room Air Orders Orders Electrocardiogram (12/15/17 ) Complete Blood Count With Diff (12/15/17 16:49) Comprehensive Metabolic Panel (12/15/17 16:49) Magnesium (Mg) (12/15/17 16:49) Ckmb (Isoenzyme) Profile (12/15/17 16:49) Troponin I (12/15/17 16:49) Act Partial Throm Time (Ptt) (12/15/17 16:49) Prothrombin Time / Inr (Pt) (12/15/17 16:49) Urinalysis - C+S If Indicated (12/15/17 16:49) Chest, Single Ap (12/15/17 16:49) Ecg Monitoring (12/15/17 16:49) Iv Access Insert/Monitor (12/15/17 16:49) Oximetry (12/15/17 16:49) Sodium Chloride 0.9% Flush (Ns Flush) (12/15/17 17:00) Ct Pulmonary Angiogram (12/15/17 ) Sodium Chlor 0.9% 1000 Ml Inj (Ns 1000 M (12/15/17 18:15) Potassium Chlor 20 Meq Premix (Kcl 20 Me (12/15/17 18:15) Potassium Chloride (Kcl) (12/15/17 18:15) Aspirin Chew (Aspirin Chew) (12/15/17 18:45) Ct Abd/Pel W Iv Contrast(Rout) (12/15/17 ) Iohexol 350 Inj (Omnipaque 350 Inj) (12/15/17 19:27) Admit Order (Ed Use Only) (12/15/17 20:05) Labs Laboratory Tests Test 12/15/17 16:46 White Blood Count 9.7 TH/MM3 Red Blood Count 3.23 MIL/MM3 Hemoglobin 9.6 GM/DL Hematocrit 28.0 % Mean Corpuscular Volume 86.7 FL Mean Corpuscular Hemoglobin 29.8 PG Mean Corpuscular Hemoglobin Concent 34.3 % Red Cell Distribution Width 14.1 % Platelet Count 291 TH/MM3 Mean Platelet Volume 8.2 FL Neutrophils (%) (Auto) 77.4 % Lymphocytes (%) (Auto) 5.7 % Monocytes (%) (Auto) 16.0 % Eosinophils (%) (Auto) 0.7 % Basophils (%) (Auto) 0.2 % Neutrophils # (Auto) 7.5 TH/MM3 Lymphocytes # (Auto) 0.6 TH/MM3 Monocytes # (Auto) 1.5 TH/MM3 Eosinophils # (Auto) 0.1 TH/MM3 Basophils # (Auto) 0.0 TH/MM3 CBC Comment DIFF FINAL Differential Comment Prothrombin Time 10.2 SEC Prothromb Time International Ratio 1.0 RATIO Activated Partial Thromboplast Time 22.9 SEC Blood Urea Nitrogen 28 MG/DL Creatinine 1.56 MG/DL Random Glucose 107 MG/DL Total Protein 7.2 GM/DL Albumin 3.5 GM/DL Calcium Level 9.1 MG/DL Magnesium Level 2.2 MG/DL Alkaline Phosphatase 38 U/L Aspartate Amino Transf (AST/SGOT) 12 U/L Alanine Aminotransferase (ALT/SGPT) 13 U/L Total Bilirubin 0.7 MG/DL Sodium Level 140 MEQ/L Potassium Level 2.9 MEQ/L Chloride Level 106 MEQ/L Carbon Dioxide Level 23.2 MEQ/L Anion Gap 11 MEQ/L Estimat Glomerular Filtration Rate 52 ML/MIN Total Creatine Kinase 58 U/L Troponin I LESS THAN 0.02 NG/ML MDM Medical Decision Making Medical Screen Exam Complete: Yes Emergency Medical Condition: Yes Medical Record Reviewed: Yes Interpretation(s) Last Impressions Chest X-Ray 12/15/17 1649 Signed Impressions: Service Date/Time: Friday, December 15, 2017 17:07 - CONCLUSION: No acute cardiopulmonary disease identified. Shahbaz Shaw MD CT Angiography 12/15/17 0000 Signed Impressions: Service Date/Time: Friday, December 15, 2017 19:22 - CONCLUSION: 1. No filling defects to suggest pulmonary embolic disease. Mild emphysema. Moderate coronary calcifications. Harman Kevin MD Differential Diagnosis Electrolyte abnormality versus dehydration versus pneumonia versus UTI versus chronic pain versus ACS Narrative Course 87-year-old male presents to the emergency department for evaluation of generalized weakness, pain to arms and legs, shortness of breath. His EKG shows sinus bradycardia, heart rate 52, inverted T waves in V2 and V3 with ST depression in V4, V5, V6. This is changed compared to previous EKG. CBC, CMP, magnesium, CK, troponin, PTT, PT/INR, UA are ordered and pending. Chest x-ray is ordered and pending. Patient is currently on Plavix and took 81 mg ASA today. He is given 2nd ASA 81 mg here. CBC shows anemia with a hgb of 9.6, hct . CMP shows hypokalemia of 2.9, BUN 28 , creatinine of 1.56. Magnesium is 2.2. CK is 58. Troponin is less than 0.02. UA is pending. Chest x-ray shows no acute cardiopulmonary disease. CT pulmonary angiogram and CT abdomen/pelvis are ordered and pending. CT pulmonary angiogram is negative for PE. Ct abdomen/pelvis shows Diffuse mild bowel ileus; Numerous mild compression deformities of the lumbar spine which are smooth and probably related to osteoporosis; Moderate coronary calcifications. Mild anasarca. Patient will be admitted for generalized weakness, EKG changes, hypokalemia, SOB. Diagnosis Primary Impression: Generalized weakness Additional Impressions: Hypokalemia Acute electrocardiogram changes Dyspnea Qualified Codes: R06.09 - Other forms of dyspnea Admitting Information Admitting Physician Requests: Cristina Will Dec 15, 2017 17:05
[2017-12-15 17:30] LABS: AUTOMATED NEUTROPHIL # 7.5 TH/MM3 (1.8-7.7); BASOPHIL % 0.2 % (0.0-2.0); EOSINOPHIL # 0.1 TH/MM3 (0-0.4); EOSINOPHIL % 0.7 % (0.0-4.0); HEMOGLOBIN 9.6 GM/DL (13.0-17.0); LYMPH % 5.7 % (9.0-44.0); LYMPHOCYTE # 0.6 TH/MM3 (1.0-4.8); MEAN CELL VOLUME 86.7 FL (80.0-100.0); MEAN CORPUSCULAR HEMOGLOBIN 29.8 PG (27.0-34.0); MEAN CORPUSCULAR HGB CONC 34.3 % (32.0-36.0); MEAN PLATELET VOLUME 8.2 FL (7.0-11.0); MONOCYTE # 1.5 TH/MM3 (0-0.9); NEUT % 77.4 % (16.0-70.0); PLATELET COUNT 291 TH/MM3 (150-450); RED BLOOD COUNT 3.23 MIL/MM3 (4.50-5.90); RED CELL DISTRIBUTION WIDTH 14.1 % (11.6-17.2); WHITE BLOOD COUNT 9.7 TH/MM3 (4.0-11.0)
--- NOTE | 2017-12-15 17:34 | RADRPT ---
EXAM DATE/TIME: 12/15/2017 17:07 [facility] COMPARISON: CHEST SINGLE AP, October 24, 2017, 6:11. INDICATIONS : Shortness of breath and weakness. MEDICAL HISTORY : Carcinoma, colon. Hypertension Diabetes. SURGICAL HISTORY : Port. Colostomy. ENCOUNTER: Initial ACUITY: 1 day PAIN SCORE: 0/10 LOCATION: Bilateral chest FINDINGS: Single AP view of the chest. Right-sided [id number] in place. The lungs are clear. Cardiomediastin al silhouette within normal limits. No evidence of pleural effusion or pneumothorax. CONCLUSION: No acute cardiopulmonary disease identified. Shahbaz Shaw MD on December 15, 2017 at 17:32 Board Certified Radiologist. This report was verified electronically.
[2017-12-15 17:45] LABS: PROTHROMBIN TIME - PATIENT 10.2 SEC (9.8-11.6)
[2017-12-15 18:01] LABS: ALBUMIN 3.5 GM/DL (3.4-5.0); ALKALINE PHOSPHATASE 38 U/L (45-117); ALT (GPT) 13 U/L (12-78); AST (GOT) 12 U/L (15-37); BICARBONATE 23.2 MEQ/L (21.0-32.0); BLOOD UREA NITROGEN 28 MG/DL (7-18); CALCIUM 9.1 MG/DL (8.5-10.1); CHLORIDE 106 MEQ/L (98-107); CREATININE 1.56 MG/DL (0.60-1.30); GLOMERULAR FILTRATION RATE 52 ML/MIN (>89); GLUCOSE,RANDOM 107 MG/DL (74-106); MAGNESIUM 2.2 MG/DL (1.5-2.5); SODIUM (NA) 140 MEQ/L (136-145); TOTAL BILIRUBIN ADULT 0.7 MG/DL (0.2-1.0); TOTAL PROTEIN 7.2 GM/DL (6.4-8.2); TROPONIN I LESS THAN 0.02 NG/ML (0.02-0.05)
[2017-12-15] MEDS ORDERED: POTASSIUM CHLORIDE 20 MEQ CONTROLLED RELEASE TAB PO ONE (18:15)
[2017-12-15] MEDS ORDERED: POTASSIUM CHLOR 20 MEQ PREMIX 100 ML IV ONE (18:15)
[2017-12-15] MEDS ORDERED: SODIUM CHLOR 0.9% 1000 ML INJ 1,000 ML IV ONE (18:15)
[2017-12-15 18:16] VITALS: BP 164/70; PULSE 54; RESP 16; TEMP 97.9; O2SAT 100
[2017-12-15] MEDS ORDERED: ASPIRIN 81 MG CHEW TAB CHEW ONE (18:45)
[2017-12-15] MEDS ORDERED: IOHEXOL 350 MG/ML 10 ML VIAL (for RAD DIAG) IVCONTRAST ONE (19:27)
--- NOTE | 2017-12-15 19:44 | RADRPT ---
EXAM DATE/TIME: 12/15/2017 19:22 [facility] COMPARISON: No previous studies available for comparison. INDICATIONS : Short of breath. IV CONTRAST: 75 cc Omnipaque 350 (iohexol) IV RADIATION DOSE: 13.29 CTDIvol (mGy) MEDICAL HISTORY : Carcinoma, bone. Carcinoma, colon. SURGICAL HISTORY : Colostomy. ENCOUNTER: Initial ACUITY: 1 day PAIN SCALE: 4/10 LOCATION: chest TECHNIQUE: Volumetric scanning of the chest was performed using a pulmonary embolism protocol MIP images were re constructed. Using automated exposure control and adjustment of the mA and/or kV according to patien t size, radiation dose was kept as low as reasonably achievable to obtain optimal diagnostic quality images. DICOM format image data is available electronically for review and comparison. Follow-up recommendations for detected pulmonary nodules are based at a minimum on nodule size and pa tient risk factors according to Fleischner Society Guidelines. FINDINGS: PULMONARY ARTERIES: No filling defects are seen in the pulmonary arteries through the segmental level. LUNGS: There is no consolidation or pneumothorax . No concerning pulmonary nodule is visualized. PLEURAE: There is no pleural thickening or pleural effusion. MEDIASTINUM: There is good visualization of the great vessels of the middle mediastinum. No evidence of mediastin al or hilar adenopathy/mass. MUSCULOSKELETAL: Within normal limits for patient age. MISCELLANEOUS: The visualized upper abdominal organs demonstrate no acute abnormality. CONCLUSION: 1. No filling defects to suggest pulmonary embolic disease. Mild emphysema. Moderate coronary calcifi cations. Harman Kevin MD on December 15, 2017 at 19:39 Board Certified Radiologist. This report was verified electronically.
--- NOTE | 2017-12-15 19:53 | RADRPT ---
EXAM DATE/TIME: 12/15/2017 19:22 [facility] COMPARISON: No previous studies available for comparison. INDICATIONS : Diffuse abdomen pain. IV CONTRAST: 75 cc Omnipaque 350 (iohexol) IV ORAL CONTRAST: No oral contrast ingested. RADIATION DOSE: 6.48 CTDIvol (mGy) MEDICAL HISTORY : Carcinoma, bone. Carcinoma, colon. SURGICAL HISTORY : Colostomy. ENCOUNTER: Initial ACUITY: 1 day PAIN SCALE: 5/10 LOCATION: Abdomen TECHNIQUE: Volumetric scanning of the abdomen and pelvis was performed. Using automated exposure control and ad justment of the mA and/or kV according to patient size, radiation dose was kept as low as reasonably achievable to obtain optimal diagnostic quality images. DICOM format image data is available electro nically for review and comparison. FINDINGS: Minimal dependent atelectasis at the lung bases. No acute findings in the liver, spleen, adrenals, kidneys or pancreas. No calcified gallstones. There is a mild ileus. Mild anasarca. Bones are osteopenic. Moderate coronary calcifications. CONCLUSION: 1. Diffuse mild bowel ileus. 2. Numerous mild compression deformities of the lumbar spine which are smooth and probably related to osteoporosis. 3. Moderate coronary calcifications. Mild anasarca. Harman Kevin MD on December 15, 2017 at 19:48 Board Certified Radiologist. This report was verified electronically.
--- NOTE | 2017-12-15 20:20 | HHI.HP ---
[facility] Unknown Admission Diagnosis generalized weakness, EKG changes, hypokalemia, SOB Diagnoses: (1) Generalized weakness Diagnosis: Principal (2) Intractable pain Diagnosis: Principal (3) Abnormal EKG Diagnosis: Principal (4) Hypokalemia Diagnosis: Principal (5) Multiple myeloma Diagnosis: Principal (6) Renal insufficiency Diagnosis: Principal Travel History International Travel<30 Days: No Contact w/Intl Traveler <30 Da: No Traveled to Known Affected Are: No History of Present Illness This is an 87-year-old male with a PMH of Multiple Myeloma, HTN, CVA, CKD and h/ o Colon CA who was brought to the ER by Daughter secondary to generalized weakness and c/o generalized pain. Follows w/ Dr. 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 Pt poor historian, unable to obtain much history, but denies abdominal pain, nausea, vomiting or diarrhea. No c/o chest pain, cough or SOB. Daughter states he is on Lortab at home, however no improvement in pain. On arrival, BP 158/64, HR 56 , O2 sat 97% on RA, Afebrile. CBC at baseline. Hemoglobin 9.6, previously 9.2 on 12/07/17. K+ 2.9, s/p replacement in ER. Creatinine 1.56, similar to baseline. Trop negative. EKG w/ lateral T-wave inversions. INR 1.0. CXR with no acute findings. CT Abdomen/Pelvis diffuse mild bowel ileus, numerous mild compression deformities of lumbar spine. CTA Pulm negative for PE. Review of Systems Except as stated in HPI: all other systems reviewed are Neg ROS: 14 point review of systems otherwise negative. Past Family Social History Past Medical History PMH: Multiple Myeloma, HTN, CVA, CKD and h/o Colon CA Past Surgical History PAST SURGICAL HISTORY: Colostomy with Reversal. Allergies: Coded Allergies: No Known Allergies (Verified Adverse Reaction, Unknown, 12/15/17) Family History PAST FAMILY HISTORY: Reviewed. No h/o DM or CAD Social History PAST SOCIAL HISTORY: Negative for alcohol, tobacco or drugs. Physical Exam Vital Signs Vital Signs Date Time Temp Pulse Resp B/P (MAP) Pulse Ox O2 Delivery O2 Flow Rate FiO2 12/15/17 18:16 97.9 54 16 164/70 (101) 100 Room Air 12/15/17 17:01 17 100 Room Air 12/15/17 16:45 56 56 100 Room Air 12/15/17 16:44 98.0 56 16 172/77 (108) 100 12/15/17 16:16 98.0 56 18 158/64 (95) 97 Physical Exam PE: GENERAL: Very pleasant chronically ill-appearing elderly black male in no acute distress. Daughter at bedside. HEENT: PERRLA, EOMI. No scleral icterus or conjunctival pallor. No lid lag or facial droop. CARDIOVASCULAR: Regular rate and rhythm. No obvious murmurs to auscultation. No chest tenderness to palpation. RESPIRATORY: No obvious rhonchi or wheezing. Clear to auscultation. Breath sounds equal bilaterally. GASTROINTESTINAL: Abdomen soft, non-tender, nondistended. BS normal. MUSCULOSKELETAL: Extremities without clubbing, cyanosis, or edema. No obvious deformities. NEUROLOGICAL: Awake, alert and oriented x4. No focal neurologic deficits. Moving both upper and lower extremities spontaneously. Laboratory Laboratory Tests Test 12/15/17 16:46 White Blood Count 9.7 Red Blood Count 3.23 Hemoglobin 9.6 Hematocrit 28.0 Mean Corpuscular Volume 86.7 Mean Corpuscular Hemoglobin 29.8 Mean Corpuscular Hemoglobin Concent 34.3 Red Cell Distribution Width 14.1 Platelet Count 291 Mean Platelet Volume 8.2 Neutrophils (%) (Auto) 77.4 Lymphocytes (%) (Auto) 5.7 Monocytes (%) (Auto) 16.0 Eosinophils (%) (Auto) 0.7 Basophils (%) (Auto) 0.2 Neutrophils # (Auto) 7.5 Lymphocytes # (Auto) 0.6 Monocytes # (Auto) 1.5 Eosinophils # (Auto) 0.1 Basophils # (Auto) 0.0 CBC Comment DIFF FINAL Differential Comment Prothrombin Time 10.2 Prothromb Time International Ratio 1.0 Activated Partial Thromboplast Time 22.9 Blood Urea Nitrogen 28 Creatinine 1.56 Random Glucose 107 Total Protein 7.2 Albumin 3.5 Calcium Level 9.1 Magnesium Level 2.2 Alkaline Phosphatase 38 Aspartate Amino Transf (AST/SGOT) 12 Alanine Aminotransferase (ALT/SGPT) 13 Total Bilirubin 0.7 Sodium Level 140 Potassium Level 2.9 Chloride Level 106 Carbon Dioxide Level 23.2 Anion Gap 11 Estimat Glomerular Filtration Rate 52 Total Creatine Kinase 58 Troponin I LESS THAN 0.02 Result Diagram: 12/15/17164512/15/171645 Caprini VTE Risk Assessment Caprini VTE Risk Assessment: No/Low Risk (score <= 1) Caprini Risk Assessment Model Point Value = 1 Point Value = 2 Point Value = 3 Point Value = 5 Age 41-60 Minor surgery BMI > 25 kg/m2 Swollen legs Varicose veins or History of unexplained or recurrent spontaneous Oral contraceptives or hormone replacement Sepsis (< 1 month) Serious lung disease, including pneumonia (< 1 month) Abnormal pulmonary function Acute myocardial infarction Congestive heart failure (< 1 month) History of inflammatory bowel disease Medical patient at bed rest Age 61-74 Arthroscopic surgery Major open surgery (> 45 min) Laparoscopic surgery (> 45 min) Malignancy Confined to bed (> 72 hours) Immobilizing plaster cast Central venous access Age >= 75 History of VTE Family history of VTE Factor V Leiden Prothrombin [id number] Lupus anticoagulant Anticardiolipin antibodies Elevated serum homocysteine Heparin-induced thrombocytopenia Other congenital or acquired thrombophilia Stroke (< 1 month) Elective arthroplasty Hip, pelvis, or leg fracture Acute spinal cord injury (< 1 month) Prophylaxis Regimen Total Risk Factor Score Risk Level Prophylaxis Regimen 0-1 Low Early ambulation 2 Moderate Order ONE of the following: *Sequential Compression Device (SCD) *Heparin 5000 units SQ BID 3-4 Higher Order ONE of the following medications: *Heparin 5000 units SQ TID *Enoxaparin/Lovenox 40 mg SQ daily (WT < 150 kg, CrCl > 30 mL/min) *Enoxaparin/Lovenox 30 mg SQ daily (WT < 150 kg, CrCl > 10-29 mL/min) *Enoxaparin/Lovenox 30 mg SQ BID (WT < 150 kg, CrCl > 30 mL/min) AND/OR *Sequential Compression Device (SCD) 5 or more Highest Order ONE of the following medications: *Heparin 5000 units SQ TID (Preferred with Epidurals) *Enoxaparin/Lovenox 40 mg SQ daily (WT < 150 kg, CrCl > 30 mL/min) *Enoxaparin/Lovenox 30 mg SQ daily (WT < 150 kg, CrCl > 10-29 mL/min) *Enoxaparin/Lovenox 30 mg SQ BID (WT < 150 kg, CrCl > 30 mL/min) AND *Sequential Compression Device (SCD) Assessment and Plan Problem List: (1) Generalized weakness ICD Code: R53.1 - Weakness Status: Acute (2) Intractable pain ICD Code: R52 - Pain, unspecified (3) Abnormal EKG ICD Code: R94.31 - Abnormal electrocardiogram [ECG] [EKG] (4) Hypokalemia ICD Code: E87.6 - Hypokalemia Status: Acute (5) Renal insufficiency ICD Code: N28.9 - Disorder of kidney and ureter, unspecified (6) Multiple myeloma ICD Code: C90.00 - Multiple myeloma not having achieved remission Assessment and Plan A/P: 1. Generalized Weakness: Daughter reports weakness worse for several days, likely secondary to deconditioning/underlying MM. PT for eval/tx. Case management for assistance w/ placement as needed. 2. Intractable Pain: c/o generalized pain, known h/o MM w/ mets to bone. On Lortab at home w/ no significant relief. Analgesics/antiemetics as needed. 3. Hypokalemia: K+ 2.9, s/p replacement in ER. Will recheck and replace as needed. Telemetry. 4. Abnormal EKG: EKG w/ lateral T-wave inversions, no c/o chest pain. Initial trop negative. Will observe for possible cardiac ischemia, telemetry, check serial cardiac enzymes, repeat EKG. 5. Renal Insufficiency: Creatinine 1.56, at baseline. Monitor I/O. IVF for hydration. Repeat labs in am. 6. Multiple Myeloma: Follows w/ Dr. Neri, last chemo 12/07/17, on Velcade/ Dexamethasone. Will consult for further evaluation/recommendations. 7. DVT Prophylaxis: SCD/Teds. 8. Social work for d/c planning as needed. 9. Case discussed w/ ER physician at length, labs/records/imaging reviewed by me. Eleonora Boothe MD Dec 15, 2017 20:20
[2017-12-15] MEDS ORDERED: SODIUM CHLORIDE 0.9% FLUSH 10 ML FLUSH IV FLUSH PRN (20:30)
[2017-12-15] MEDS ORDERED: ONDANSETRON HCL 4 MG/2 ML VIAL IVP PRN (20:30)
[2017-12-15] MEDS ORDERED: BISACODYL 10 MG SUPP RECTAL PRN (20:30)
[2017-12-15] MEDS ORDERED: ACETAMINOPHEN/HYDROcodone 325 MG/10 MG TAB PO PRN (20:30)
[2017-12-15] MEDS ORDERED: LACTULOSE SYRUP 20 GM/30 ML CUP PO PRN (20:30)
[2017-12-15] MEDS ORDERED: MAGNESIUM HYDROXIDE SUSP 30 ML CUP PO PRN (20:30)
[2017-12-15] MEDS ORDERED: SENNOSIDES 8.6 MG TAB PO PRN (20:30)
[2017-12-15] MEDS ORDERED: ACETAMINOPHEN 325 MG TAB PO PRN (20:30)
[2017-12-15] MEDS ORDERED: ALBUTEROL SULFATE 90 MCG/ACT HFA 8 GM INHALER INH PRN (20:30)
[2017-12-15] MEDS ORDERED: MORPHINE SULFATE 2 MG/ML INJ IV PRN (20:45)
[2017-12-15] MEDS ORDERED: PILL SPLITTER OTHER PRN (20:45)
[2017-12-15] MEDS: SODIUM CHLORIDE 0.9% FLUSH 10 ML FLUSH IV FLUSH SCH (21:00)
[2017-12-15] MEDS: DOCUSATE SODIUM 50 MG/SENNA 8.6 MG TAB PO SCH (21:00)
--- NOTE | 2017-12-15 22:12 | EKG ---
Date Performed: 12/15/2017 Time Performed: 16:55:32 PTAGE: 87 years EKG: Baseline artifact present SINUS BRADYCARDIA MODERATE INTRAVENTRICULAR CONDUCTION DELAY Nons pecific ST and T wave abnormalities ABNORMAL ECG Compared to prior electrocardiogram, Nonspecific ST and T wave abnormalities are more marked PREVIOUS TRACING : 08/21/2017 12.11 DOCTOR: Barry Lucas Interpretating Date/Time 12/15/2017 22:12:07
[2017-12-15 22:38] VITALS: PULSE 67
[2017-12-15 22:51] VITALS: BP 170/71; PULSE 61; RESP 18; TEMP 98.5; O2SAT 96
[2017-12-15] MEDS: ACETAMINOPHEN/HYDROcodone 325 MG/5 MG TAB PO PRN (23:20)
[2017-12-16] VITALS (13 sets, daily range): BP systolic 128–182; BP diastolic 60–76; PULSE 53–89; RESP 16–20; TEMP 97.9–98.2; O2SAT 72–100
[2017-12-16] MEDS: SODIUM CHLOR 0.9% 1000 ML INJ 1,000 ML IV SCH ×3 (00:36→17:58)
[2017-12-16 06:48] LABS: AUTOMATED NEUTROPHIL # 7.1 TH/MM3 (1.8-7.7); BASOPHIL % 0.1 % (0.0-2.0); EOSINOPHIL # 0.1 TH/MM3 (0-0.4); EOSINOPHIL % 0.8 % (0.0-4.0); HEMATOCRIT 26.2 % (39.0-51.0); LYMPH % 5.3 % (9.0-44.0); LYMPHOCYTE # 0.5 TH/MM3 (1.0-4.8); MEAN CELL VOLUME 86.3 FL (80.0-100.0); MEAN CORPUSCULAR HEMOGLOBIN 29.6 PG (27.0-34.0); MEAN CORPUSCULAR HGB CONC 34.3 % (32.0-36.0); MEAN PLATELET VOLUME 7.8 FL (7.0-11.0); MONO % 14.7 % (0.0-8.0); MONOCYTE # 1.3 TH/MM3 (0-0.9); NEUT % 79.1 % (16.0-70.0); PLATELET COUNT 300 TH/MM3 (150-450); RED BLOOD COUNT 3.04 MIL/MM3 (4.50-5.90); RED CELL DISTRIBUTION WIDTH 13.7 % (11.6-17.2); WHITE BLOOD COUNT 9.1 TH/MM3 (4.0-11.0)
[2017-12-16 07:07] LABS: ALBUMIN 3.3 GM/DL (3.4-5.0); ALT (GPT) 9 U/L (12-78); AST (GOT) 8 U/L (15-37); BICARBONATE 23.8 MEQ/L (21.0-32.0); BLOOD UREA NITROGEN 28 MG/DL (7-18); CALCIUM 8.6 MG/DL (8.5-10.1); CHLORIDE 109 MEQ/L (98-107); CREATININE 1.34 MG/DL (0.60-1.30); GLOMERULAR FILTRATION RATE 61 ML/MIN (>89); GLUCOSE,RANDOM 105 MG/DL (74-106); SODIUM (NA) 142 MEQ/L (136-145)
[2017-12-16 07:11] LABS: ALKALINE PHOSPHATASE 37 U/L (45-117); TOTAL BILIRUBIN ADULT 0.7 MG/DL (0.2-1.0); TOTAL PROTEIN 6.9 GM/DL (6.4-8.2); TROPONIN I LESS THAN 0.02 NG/ML (0.02-0.05)
[2017-12-16] MEDS ORDERED: POTASSIUM CHLORIDE 20 MEQ CONTROLLED RELEASE TAB PO ONE (07:45)
[2017-12-16] MEDS: SODIUM CHLORIDE 0.9% FLUSH 10 ML FLUSH IV FLUSH SCH ×2 (09:00→21:00)
[2017-12-16] MEDS: DOCUSATE SODIUM 50 MG/SENNA 8.6 MG TAB PO SCH ×2 (09:00→21:00)
[2017-12-16] MEDS: PRAVASTATIN SOD 10 MG TAB PO SCH (10:04)
[2017-12-16] MEDS: CLOPIDOGREL 75 MG TAB PO SCH (10:04)
[2017-12-16] MEDS: ASPIRIN EC 81 MG TABEC PO SCH (10:05)
[2017-12-16] MEDS: NEBIVOLOL 10 MG TAB PO SCH (10:06)
[2017-12-16] MEDS: LISINOPRIL 5 MG TAB PO SCH (10:14)
--- NOTE | 2017-12-16 10:43 | HHI.PR ---
Subjective Remarks f/u weakness and ileus. Reports that weakness is improving still with muscle aches denies back pain and shortness of breath. Tolerating diet denies nausea, vomiting and abdominal pain. Discussed with nursing Objective Vitals Vital Signs Date Time Temp Pulse Resp B/P (MAP) Pulse Ox O2 Delivery O2 Flow Rate FiO2 12/16/17 08:35 98.2 70 18 140/62 (88) 96 12/16/17 05:35 98.1 74 18 171/73 (105) 98 12/16/17 03:40 55 12/16/17 03:30 169/72 (104) 12/16/17 03:28 56 16 182/76 (111) 100 12/16/17 01:02 98.0 56 18 149/69 (95) 99 12/16/17 00:03 58 12/16/17 00:03 58 12/15/17 22:51 98.5 61 18 170/71 (104) 96 12/15/17 22:38 67 12/15/17 18:16 97.9 54 16 164/70 (101) 100 Room Air 12/15/17 17:01 17 100 Room Air 12/15/17 16:45 56 56 100 Room Air 12/15/17 16:44 98.0 56 16 172/77 (108) 100 12/15/17 16:16 98.0 56 18 158/64 (95) 97 I/O 12/15/17 12/15/17 12/15/17 12/16/17 12/16/17 12/16/17 07:00 15:00 23:00 07:00 15:00 23:00 # Voids 2 # Bowel Movements 1 Result Diagram: 12/16/17 0500 12/16/17 0500 Imaging Last Impressions Chest X-Ray 12/15/17 1649 Signed Impressions: Service Date/Time: Friday, December 15, 2017 17:07 - CONCLUSION: No acute cardiopulmonary disease identified. Shahbaz Shaw MD CT Angiography 12/15/17 0000 Signed Impressions: Service Date/Time: Friday, December 15, 2017 19:22 - CONCLUSION: 1. No filling defects to suggest pulmonary embolic disease. Mild emphysema. Moderate coronary calcifications. Harman Kevin MD Abdomen/Pelvis CT 12/15/17 0000 Signed Impressions: Service Date/Time: Friday, December 15, 2017 19:22 - CONCLUSION: 1. Diffuse mild bowel ileus. 2. Numerous mild compression deformities of the lumbar spine which are smooth and probably related to osteoporosis. 3. Moderate coronary calcifications. Mild anasarca. Harman Kevin MD Objective Remarks GENERAL: Very pleasant chronically ill-appearing elderly black male in no acute distress. HEENT: PERRLA, EOMI. No scleral icterus or conjunctival pallor. No lid lag or facial droop. CARDIOVASCULAR: Regular rate and rhythm. No obvious murmurs to auscultation. No chest tenderness to palpation. RESPIRATORY: No obvious rhonchi or wheezing. Clear to auscultation. Breath sounds equal bilaterally. GASTROINTESTINAL: Abdomen soft, non-tender, nondistended. BS normal. MUSCULOSKELETAL: Extremities without clubbing, cyanosis, or edema. No obvious deformities. No spinal tenderness NEUROLOGICAL: Awake, alert and oriented x4. No focal neurologic deficits. Moving both upper and lower extremities spontaneously. Procedures none A/P Problem List: (1) Generalized weakness ICD Code: R53.1 - Weakness Status: Acute (2) Intractable pain ICD Code: R52 - Pain, unspecified (3) Abnormal EKG ICD Code: R94.31 - Abnormal electrocardiogram [ECG] [EKG] (4) Hypokalemia ICD Code: E87.6 - Hypokalemia Status: Acute (5) Renal insufficiency ICD Code: N28.9 - Disorder of kidney and ureter, unspecified (6) Multiple myeloma ICD Code: C90.00 - Multiple myeloma not having achieved remission Assessment and Plan 1. Generalized Weakness: Daughter reports weakness worse for several days, likely secondary to deconditioning/underlying MM/dehydration. PT recommending rehab. Case management for assistance w/ placement as needed. 2. Intractable Pain: c/o generalized pain, known h/o MM w/ mets to bone. Patient with lumbar compression on CT nontender exam. On Lortab at home w/ no significant relief. Analgesics with IV morphine/antiemetics as needed. Counseled regarding narcotics 3. Hypokalemia: K+ 2.9, s/p replacement in ER. Will recheck and replace as needed. Improving. Telemetry. 4. Abnormal EKG: EKG w/ lateral T-wave inversions, no c/o chest pain. Negative troponin. CT scan with coronary calcifications. Repeat EKG. continue aspirin, beta-mauricio and statin. 5. Renal Insufficiency/chronic kidney disease stage III: Creatinine 1.56, at baseline. Monitor I/O. IVF for hydration. Repeat labs in am. 6. Multiple Myeloma: Follows w/ Dr. Neri, last chemo 12/07/17, on Velcade/ Dexamethasone. Will consult for further evaluation/recommendations. 7. Ileus on CT. Denies GI symptoms tolerating diet. DVT Prophylaxis: SCD/Teds. Subcu heparin Consider palliative/hospice will discuss with oncology Discharge Planning Rehab pending clinical improvement Dagoberto Randall MD Dec 16, 2017 10:43
[2017-12-16] MEDS: RESP: ALBUTEROL 1.25 MG/3 ML NEB (SCH) NEB ×2 (13:01→20:15)
[2017-12-16 19:45] LABS: BILIRUBIN, URINE NEG (NEG); BLOOD, URINE TRACE (NEG); GLUCOSE,URINE NEG (NEG); KETONE, URINE NEG (NEG); NITRITE,URINE NEG (NEG); SQUAMOUS EPITHELIAL CELL URINE 1 /hpf (0-5); URINE COLOR YELLOW (YELLW/STRAW); URINE LEUKOCYTE ESTERASE LARGE (NEG); WHITE BLOOD CELL CLUMPS MOD
[2017-12-16] MEDS: HEPARIN SODIUM - SQ 10,000 UNITS/ML VIAL SQ SCH (21:48)
[2017-12-17] VITALS (10 sets, daily range): BP systolic 138–182; BP diastolic 64–84; PULSE 54–84; RESP 16–18; TEMP 97.6–98; O2SAT 96–100
--- NOTE | 2017-12-17 01:09 | MB ---
cc: Chidi Vann MD DATE OF CONSULT: 12/16/2017 REASON FOR CONSULTATION: Consult requested by hospitalist for evaluation and management of multiple myeloma. HISTORY OF PRESENT ILLNESS: This is an 87-year-old, very frail male. He is under the care of my associate, Dr. Neri, for multiple myeloma. The patient has been on Velcade and Decadron. He was brought into the Emergency Room by his daughter, as he was complaining of generalized weakness and multiple area of bone pain. He had blood tests on admission which showed white count of 9.7, hemoglobin of 9.6, platelet count 291. The comprehensive metabolic profile is significant for hypokalemia with a potassium of 2.9; BUN is 28, creatinine 1.56, GFR 52, glucose is 107. The patient is admitted to the hospital for pain management and further evaluation. I have been asked to see him for further recommendations. The patient is still in the Emergency Room, on observation. He has been getting pain medications, morphine, which seems to be helping his pain. He had a CT angiogram of the chest which did not show any evidence of pulmonary emboli. He has some mild emphysema and moderate coronary calcification. The CT of the abdomen and pelvis showed diffuse mild bowel ileus. There are numerous mild compression deformities of the lumbar spine which are small and probably related to osteoporosis. There is moderate coronary calcification and mild anasarca noted. The chest x-ray showed no acute cardiopulmonary disease. His daughter was present at the bedside and stated that he is getting weaker and weaker. It is difficult for her to take care of him. The rest of the review of systems is negative. PAST MEDICAL HISTORY: Multiple myeloma, hypertension, CVA, chronic kidney disease, history of colon cancer. PAST SURGICAL HISTORY: Colostomy with reversal. ALLERGIES: NONE. FAMILY HISTORY: None for malignancy. SOCIAL HISTORY: The patient does not smoke cigarettes and does not drink alcohol. PHYSICAL EXAMINATION: GENERAL: This is a well-developed, frail, male in no apparent distress. VITAL SIGNS: Temperature 97.9, heart rate is 62, blood pressure 128/62. HEENT: PERRLA. EOMI. Anicteric. No oral lesions noted. NECK: No lymphadenopathy noted. LUNGS: Clear, no wheezing, rhonchi or rales. HEART: Regular rate and rhythm. ABDOMEN: Soft, nontender, no hepatosplenomegaly. EXTREMITIES: No pedal edema. NEUROLOGIC: Awake, alert, oriented x 3. SKIN: No significant lesions noted. ASSESSMENT: 1. IgG lambda multiple myeloma which was diagnosed in 2014. Currently he is on Velcade and Decadron. 2. Frail patient with poor performance status. 3. History of hypertension. 4. History of anemia. 5. History of benign prostatic hyperplasia. PLAN: I have reviewed his available records and I have discussed with the patient and his daughter regarding his clinical situation. He was diagnosed with myeloma in 2014. Due to his advanced age and frailty, he was not considered to be a candidate for any aggressive treatment. He has been maintained on Velcade and Decadron, with stable disease. He recently had a repeat bone marrow biopsy which showed still persistent disease, but stable. I discussed the CAT scan of the abdomen and pelvis, and the CT angiogram of the chest findings. The scan does not show any significant findings. The patient is complaining of severe bone pain. My recommendation is to get the skeletal survey to identify any new lytic lesions, since his main complaint is diffuse pain in multiple areas of the bone. I will ask his oncologist, Dr. Neri, to see him tomorrow, and he will make further recommendations. Thank your for asking my opinion. MD ERIC Burton/MAYRA , 12:04 AM , 01:07 AM
[2017-12-17] MEDS ORDERED: ENALAPRILAT 1.25 MG/ML VIAL IV PUSH ONE (02:15)
[2017-12-17] MEDS: RESP: ALBUTEROL 1.25 MG/3 ML NEB (SCH) NEB ×3 (07:51→20:18)
[2017-12-17] MEDS: ASPIRIN EC 81 MG TABEC PO SCH (08:57)
[2017-12-17] MEDS: NEBIVOLOL 10 MG TAB PO SCH (08:57)
[2017-12-17] MEDS: CLOPIDOGREL 75 MG TAB PO SCH (08:58)
[2017-12-17] MEDS: HEPARIN SODIUM - SQ 10,000 UNITS/ML VIAL SQ SCH ×2 (08:58→20:49)
[2017-12-17] MEDS: LISINOPRIL 5 MG TAB PO SCH (08:58)
[2017-12-17] MEDS: cefTRIAXone INJ 1,000 MG in SODIUM CHLORIDE 0.9% INJ 100 ML IV SCH (08:59)
[2017-12-17] MEDS: SODIUM CHLORIDE 0.9% FLUSH 10 ML FLUSH IV FLUSH SCH ×2 (08:59→20:49)
[2017-12-17] MEDS: PRAVASTATIN SOD 10 MG TAB PO SCH (09:00)
[2017-12-17] MEDS: DOCUSATE SODIUM 50 MG/SENNA 8.6 MG TAB PO SCH ×2 (09:00→20:49)
--- NOTE | 2017-12-17 09:29 | HHI.PR ---
Subjective Remarks Patient is in bed, says he had diarrhea yesterday no abdominal cramps. Passing gas. Feels Cold no fever or chills overnight. No nausea or vomiting. Not much pain. Not eating much . Feels tired and weak. Objective Vitals Vital Signs Date Time Temp Pulse Resp B/P (MAP) Pulse Ox O2 Delivery O2 Flow Rate FiO2 12/17/17 09:20 97.6 59 18 163/72 (102) 97 12/17/17 03:26 97.8 54 16 165/74 (104) 100 12/17/17 03:00 76 12/17/17 02:15 55 16 173/73 (106) 100 12/17/17 01:42 56 18 178/73 (108) 100 12/17/17 00:22 97.9 57 16 182/75 (110) 98 12/16/17 23:16 56 12/16/17 20:18 53 12/16/17 20:03 97.9 54 18 138/64 (88) 99 12/16/17 16:38 98.2 78 20 128/60 (82) 96 12/16/17 12:05 97.9 62 20 128/62 (84) 72 I/O 12/16/17 12/16/17 12/16/17 12/17/17 12/17/17 12/17/17 07:00 15:00 23:00 07:00 15:00 23:00 Intake Total 1500 ml Balance 1500 ml Intake Oral 500 ml IV Total 1000 ml # Voids 2 3 # Bowel Movements 1 3 Result Diagram: 12/16/17 0500 12/16/17 0500 Imaging Last Impressions Chest X-Ray 12/15/17 1649 Signed Impressions: Service Date/Time: Friday, December 15, 2017 17:07 - CONCLUSION: No acute cardiopulmonary disease identified. Shahbaz Shaw MD CT Angiography 12/15/17 0000 Signed Impressions: Service Date/Time: Friday, December 15, 2017 19:22 - CONCLUSION: 1. No filling defects to suggest pulmonary embolic disease. Mild emphysema. Moderate coronary calcifications. Harman Kevin MD Abdomen/Pelvis CT 12/15/17 0000 Signed Impressions: Service Date/Time: Friday, December 15, 2017 19:22 - CONCLUSION: 1. Diffuse mild bowel ileus. 2. Numerous mild compression deformities of the lumbar spine which are smooth and probably related to osteoporosis. 3. Moderate coronary calcifications. Mild anasarca. Harman Kevin MD Objective Remarks GENERAL: Very pleasant chronically ill-appearing elderly black male in no acute distress. HEENT: PERRLA, EOMI. No scleral icterus or conjunctival pallor. No lid lag or facial droop. CARDIOVASCULAR: Regular rate and rhythm. No obvious murmurs to auscultation. No chest tenderness to palpation. RESPIRATORY: No obvious rhonchi or wheezing. Clear to auscultation. Breath sounds equal bilaterally. GASTROINTESTINAL: Abdomen soft, non-tender, nondistended. BS normal. MUSCULOSKELETAL: Extremities without clubbing, cyanosis, or edema. No obvious deformities. No spinal tenderness NEUROLOGICAL: Awake, alert and oriented x4. No focal neurologic deficits. Moving both upper and lower extremities spontaneously. Procedures none A/P Problem List: (1) Generalized weakness ICD Code: R53.1 - Weakness Status: Acute (2) Intractable pain ICD Code: R52 - Pain, unspecified (3) Abnormal EKG ICD Code: R94.31 - Abnormal electrocardiogram [ECG] [EKG] (4) Hypokalemia ICD Code: E87.6 - Hypokalemia Status: Acute (5) Renal insufficiency ICD Code: N28.9 - Disorder of kidney and ureter, unspecified (6) Multiple myeloma ICD Code: C90.00 - Multiple myeloma not having achieved remission Assessment and Plan Generalized Weakness: Daughter reports weakness worse for several days, likely secondary to deconditioning/underlying MM/dehydration. PT recommending rehab. Case management for assistance w/ placement as needed. Intractable Pain: c/o generalized pain, known h/o MM w/ mets to bone. Patient with lumbar compression on CT nontender exam. On Lortab at home w/ no significant relief. Analgesics with IV morphine/antiemetics as needed. Counseled regarding narcotics Hypokalemia: K+ 2.9, s/p replacement in ER. Will recheck and replace as needed. Improving. Telemetry. Abnormal EKG: EKG w/ lateral T-wave inversions, no c/o chest pain. Negative troponin. CT scan with coronary calcifications. Repeat EKG. continue aspirin, beta-mauricio and statin. Replace electrolytes Renal Insufficiency/chronic kidney disease stage III: Creatinine 1.56, at baseline. Monitor I/O. IVF for hydration. Repeat labs in am. Multiple Myeloma: Follows w/ Dr. Neri, last chemo 12/07/17, on Velcade/ Dexamethasone. Will consult for further evaluation/recommendations. Ileus on CT. Denies GI symptoms tolerating diet. DVT Prophylaxis: SCD/Teds. Subcu heparin Consider palliative/hospice will discuss with oncology Discharge Planning Rehab, pending clinical improvement Rupa Hall MD Dec 17, 2017 09:29
[2017-12-17] MEDS ORDERED: NORC5TAB PO (09:30)
--- NOTE | 2017-12-17 09:31 | HHI.DS ---
Discharge Summary Admission Date Dec 15, 2017 at 20:06 Discharge Date: Dec 18, 2017 Admitting Diagnosis generalized weakness, EKG changes, hypokalemia, SOB (1) Generalized weakness ICD Code: R53.1 - Weakness Status: Acute (2) Intractable pain ICD Code: R52 - Pain, unspecified (3) Abnormal EKG ICD Code: R94.31 - Abnormal electrocardiogram [ECG] [EKG] (4) Hypokalemia ICD Code: E87.6 - Hypokalemia Status: Acute (5) Renal insufficiency ICD Code: N28.9 - Disorder of kidney and ureter, unspecified (6) Multiple myeloma ICD Code: C90.00 - Multiple myeloma not having achieved remission Procedures none Brief History - From Admission This is an 87-year-old male with a PMH of Multiple Myeloma, HTN, CVA, CKD and h/ o Colon CA who was brought to the ER by Daughter secondary to generalized weakness and c/o generalized pain. Follows w/ Dr. 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 Pt poor historian, unable to obtain much history, but denies abdominal pain, nausea, vomiting or diarrhea. No c/o chest pain, cough or SOB. Daughter states he is on Lortab at home, however no improvement in pain. On arrival, BP 158/64, HR 56 , O2 sat 97% on RA, Afebrile. CBC at baseline. Hemoglobin 9.6, previously 9.2 on 12/07/17. K+ 2.9, s/p replacement in ER. Creatinine 1.56, similar to baseline. Trop negative. EKG w/ lateral T-wave inversions. INR 1.0. CXR with no acute findings. CT Abdomen/Pelvis diffuse mild bowel ileus, numerous mild compression deformities of lumbar spine. CTA Pulm negative for PE. CBC/BMP: 12/16/17 0500 12/16/17 0500 Significant Findings Laboratory Tests Test 12/15/17 16:46 12/16/17 00:47 12/16/17 05:00 12/16/17 19:00 Red Blood Count 3.23 MIL/MM3 (4.50-5.90) 3.04 MIL/MM3 (4.50-5.90) Hemoglobin 9.6 GM/DL (13.0-17.0) 9.0 GM/DL (13.0-17.0) Hematocrit 28.0 % (39.0-51.0) 26.2 % (39.0-51.0) Neutrophils (%) (Auto) 77.4 % (16.0-70.0) 79.1 % (16.0-70.0) Lymphocytes (%) (Auto) 5.7 % (9.0-44.0) 5.3 % (9.0-44.0) Monocytes (%) (Auto) 16.0 % (0.0-8.0) 14.7 % (0.0-8.0) Lymphocytes # (Auto) 0.6 TH/MM3 (1.0-4.8) 0.5 TH/MM3 (1.0-4.8) Monocytes # (Auto) 1.5 TH/MM3 (0-0.9) 1.3 TH/MM3 (0-0.9) Activated Partial Thromboplast Time 22.9 SEC (24.3-30.1) Blood Urea Nitrogen 28 MG/DL (7-18) 28 MG/DL (7-18) Creatinine 1.56 MG/DL (0.60-1.30) 1.34 MG/DL (0.60-1.30) Random Glucose 107 MG/DL (74-106) Alkaline Phosphatase 38 U/L (45-117) 37 U/L (45-117) Aspartate Amino Transf (AST/SGOT) 12 U/L (15-37) 8 U/L (15-37) Potassium Level 2.9 MEQ/L (3.5-5.1) 3.3 MEQ/L (3.5-5.1) Estimat Glomerular Filtration Rate 52 ML/MIN (>89) 61 ML/MIN (>89) Troponin I LESS THAN 0.02 NG/ML LESS THAN 0.02 NG/ML LESS THAN 0.02 NG/ML Albumin 3.3 GM/DL (3.4-5.0) Alanine Aminotransferase (ALT/SGPT) 9 U/L (12-78) Chloride Level 109 MEQ/L (98-107) Urine Turbidity HAZY (CLEAR) Urine Protein 30 mg/dL (NEG-TRACE) Urine Occult Blood TRACE (NEG) Urine Leukocyte Esterase LARGE (NEG) Urine RBC 11 /hpf (0-3) Urine WBC 61 /hpf (0-5) Urine WBC Clumps MOD (NONE) Urine Yeast (Budding) FEW (NONE) Test 12/17/17 02:20 Imaging Last Impressions Bone Osseous Survey 12/17/17 0600 Signed Impressions: Service Date/Time: Sunday, December 17, 2017 11:07 - CONCLUSION: 1. Advanced osteopenia with compression fractures of L2 and L4. 2. No definite destructive lesion seen by plain film. Saul Diaz MD Chest X-Ray 12/15/17 1649 Signed Impressions: Service Date/Time: Friday, December 15, 2017 17:07 - CONCLUSION: No acute cardiopulmonary disease identified. Shahbaz Shaw MD CT Angiography 12/15/17 0000 Signed Impressions: Service Date/Time: Friday, December 15, 2017 19:22 - CONCLUSION: 1. No filling defects to suggest pulmonary embolic disease. Mild emphysema. Moderate coronary calcifications. Harman Kevin MD Abdomen/Pelvis CT 12/15/17 0000 Signed Impressions: Service Date/Time: Friday, December 15, 2017 19:22 - CONCLUSION: 1. Diffuse mild bowel ileus. 2. Numerous mild compression deformities of the lumbar spine which are smooth and probably related to osteoporosis. 3. Moderate coronary calcifications. Mild anasarca. Harman Kevin MD PE at Discharge GENERAL: Very pleasant chronically ill-appearing elderly black male in no acute distress. HEENT: PERRLA, EOMI. No scleral icterus or conjunctival pallor. No lid lag or facial droop. CARDIOVASCULAR: Regular rate and rhythm. No obvious murmurs to auscultation. No chest tenderness to palpation. RESPIRATORY: No obvious rhonchi or wheezing. Clear to auscultation. Breath sounds equal bilaterally. GASTROINTESTINAL: Abdomen soft, non-tender, nondistended. BS normal. MUSCULOSKELETAL: Extremities without clubbing, cyanosis, or edema. No obvious deformities. No spinal tenderness NEUROLOGICAL: Awake, alert and oriented x4. No focal neurologic deficits. Moving both upper and lower extremities spontaneously. Pt update on day of discharge No events overnight. Pain is controlled vSS Plan for rehab Hospital Course Generalized Weakness: Daughter reports weakness worse for several days, likely secondary to deconditioning/underlying MM/dehydration. PT recommending rehab. Case management for assistance w/ placement as needed. Intractable Pain: c/o generalized pain, known h/o MM w/ mets to bone. Patient with lumbar compression on CT nontender exam. On Lortab at home w/ no significant relief. Analgesics with IV morphine/antiemetics as needed. Counseled regarding narcotics Hypokalemia: K+ 2.9, s/p replacement in ER. Will recheck and replace as needed. Improving. Telemetry. Abnormal EKG: EKG w/ lateral T-wave inversions, no c/o chest pain. Negative troponin. CT scan with coronary calcifications. Repeat EKG. continue aspirin, beta-mauricio and statin. Replace electrolytes Renal Insufficiency/chronic kidney disease stage III: Creatinine 1.56, at baseline. Monitor I/O. IVF for hydration. Repeat labs in am. Multiple Myeloma: Follows w/ Dr. Neri, last chemo 12/07/17, on Velcade/ Dexamethasone. Will consult for further evaluation/recommendations. Ileus on CT. Denies GI symptoms tolerating diet. DVT Prophylaxis: SCD/Teds. Subcu heparin Consider palliative/hospice will discuss with oncology Discharge Planning Rehab, pending clinical improvement. Patient improved cleared by hem/onc for DC to follow up as OP with PCP and consultants Pt Condition on Discharge: Stable Discharge Disposition: Discharge to SNF Discharge Time: > 30 minutes Discharge Instructions DIET: Follow Instructions for: Heart Healthy Diet Activities you can perform: Regular-No Restrictions Follow up Referrals: Oncology - 1 Week with Ag Neri MD PCP Follow-up - 2-3 Days New Medications: Cefuroxime (Ceftin) 250 Mg Tab 250 MG PO BID for UTI for 3 Days, #6 TAB Hydrocodone-Acetaminophen ([place]) 5 Mg-325 Mg Tab 1 TAB PO Q6H PRN for PAIN, #30 TAB 0 Refills Continued Medications: Albuterol 18 GM Inh (Ventolin Hfa 18 GM Inh) 90 Mcg/Act Aer 1 PUFF INH Q4H PRN for SHORTNESS OF BREATH, #1 INHALER 0 Refills Amlodipine (Amlodipine) 10 Mg Tab 10 MG PO DAILY for Blood Pressure Management, #30 TAB 0 Refills Aspirin (Aspirin 81) 81 Mg Tabdr 81 MG PO DAILY, TAB 0 Refills Clopidogrel (Plavix) 75 Mg Tab 75 MG PO DAILY for Blood Clot Prevention, #30 TAB 0 Refills Lisinopril (Lisinopril) 2.5 Mg Tab 2.5 MG PO DAILY, #30 TAB 0 Refills Nebivolol (Bystolic) 10 Mg Tab 10 MG PO DAILY for Blood Pressure Management, #30 TAB 0 Refills Ondansetron (Ondansetron) 8 Mg Tab 8 MG PO TID for Nausea/Vomiting, TAB 0 Refills Pravastatin (Pravastatin) 10 Mg Tab 10 MG PO DAILY for Cholesterol Management, #30 TAB 0 Refills Rupa Hall MD Dec 17, 2017 09:31
[2017-12-17] MEDS ORDERED: CEFU1TAB18 PO (09:34)
--- NOTE | 2017-12-17 12:31 | RADRPT ---
EXAM DATE/TIME: 12/17/2017 11:07 [facility] COMPARISON: CHEST SINGLE AP, December 15, 2017, 17:07. INDICATIONS : Lytic lesions MEDICAL HISTORY : Carcinoma, bone. Carcinoma, colon. Stroke. Multiple myeloma SURGICAL HISTORY : Colostomy. ENCOUNTER: Initial ACUITY: 2 days PAIN SCORE: 0/10 LOCATION: entire body FINDINGS: The examination demonstrates fairly diffuse osteopenia. The skull is unremarkable in appearance. The ribs demonstrate old, healed lower rib fractures on the right. The thoracic vertebral bodies are grossly intact. The exam does demonstrate compression fractures of L2 and L4. The upper extremities are unremarkable in appearance. There are degenerative changes within the hips bilaterally. The lower chest these are otherwise unrem arkable. CONCLUSION: 1. Advanced osteopenia with compression fractures of L2 and L4. 2. No definite destructive lesion seen by plain film. Saul Diaz MD on December 17, 2017 at 12:26 Board Certified Radiologist. This report was verified electronically.
[2017-12-17] MEDS: SODIUM CHLOR 0.9% 1000 ML INJ 1,000 ML IV SCH (14:26)
[2017-12-17] MEDS: ACETAMINOPHEN/HYDROcodone 325 MG/5 MG TAB PO PRN (14:26)
--- NOTE | 2017-12-17 14:39 | PD.ONC.PN ---
Subjective Subjective Remarks Afebrile overnight. Patient resting in room. Has a discharge order placed and is waiting for SNF placement. complains of pain in his hands. he denies pain elsewhere. I review his bone scan results with him and he expresses surprise, stating he doesn't have pain in his back, only his hands. Objective Data Date Time Temp Pulse Resp B/P (MAP) Pulse Ox O2 Delivery O2 Flow Rate FiO2 12/17/17 09:42 149/78 (101) 12/17/17 09:20 97.6 59 18 163/72 (102) 97 12/17/17 08:00 57 12/17/17 03:26 97.8 54 16 165/74 (104) 100 12/17/17 03:00 76 12/17/17 02:15 55 16 173/73 (106) 100 12/17/17 01:42 56 18 178/73 (108) 100 12/17/17 00:22 97.9 57 16 182/75 (110) 98 12/16/17 23:16 56 12/16/17 20:18 53 12/16/17 20:03 97.9 54 18 138/64 (88) 99 12/16/17 16:38 98.2 78 20 128/60 (82) 96 12/17/17 12/17/17 12/17/17 06:59 14:59 22:59 Intake Total 1500 ml 1100 ml Balance 1500 ml 1100 ml Result Diagram: 12/16/17 0500 12/16/17 0500 Laboratory Results Laboratory Tests Test 12/16/17 19:00 12/17/17 02:20 Urine Color YELLOW Urine Turbidity HAZY Urine pH 6.0 Urine Specific [facility] 1.018 Urine Protein 30 mg/dL Urine Glucose (UA) NEG mg/dL Urine Ketones NEG mg/dL Urine Occult Blood TRACE Urine Nitrite NEG Urine Bilirubin NEG Urine Urobilinogen LESS THAN 2.0 MG/DL Urine Leukocyte Esterase LARGE Urine RBC 11 /hpf Urine WBC 61 /hpf Urine WBC Clumps MOD Urine Squamous Epithelial Cells 1 /hpf Urine Yeast (Budding) FEW Microscopic Urinalysis Comment CULTURE INDICATED Stool C. difficile Toxin (PCR) NEGATIVE Stl C. difficile Toxin Epiderm 027 PRESUMPTIVE NEGATIVE Culture Results Microbiology Date/Time Source Procedure Growth Status 12/16/17 19:00 Urine Clean Catch Urine Culture - Preliminary NO GROWTH IN 24 HOURS. Resulted Imaging Studies Last 24 hours Impressions Bone Osseous Survey 12/17/17 0600 Signed Impressions: Service Date/Time: Sunday, December 17, 2017 11:07 - CONCLUSION: 1. Advanced osteopenia with compression fractures of L2 and L4. 2. No definite destructive lesion seen by plain film. Saul Diaz MD Administered Medications Medications (Trade) Dose Ordered Sig/Yuridia Route PRN Reason Start Time Stop Time Status Last Admin Dose Admin Sodium Chloride 1,000 ml @ 60 mls/hr [id number] IV 12/15/17 20:18 12/17/17 14:26 Sodium Chloride (NS Flush) 2 ml BID IV FLUSH 12/15/17 21:00 12/17/17 08:59 Acetaminophen (Tylenol) 650 mg Q6H PRN PO FEVER/PAIN SCALE 1 TO 2 12/15/17 20:30 12/17/17 01:39 Acetaminophen/ Hydrocodone Bitart ([place] 5-325 Mg) 1 tab Q4H PRN PO PAIN SCALE 3 TO 5 12/15/17 20:30 12/17/17 14:26 Amlodipine Besylate (Norvasc) 10 mg DAILY PO 12/16/17 09:00 12/17/17 08:57 Aspirin (Ecotrin Ec) 81 mg DAILY PO 12/16/17 09:00 12/17/17 08:57 Clopidogrel Bisulfate (Plavix) 75 mg DAILY PO 12/16/17 09:00 12/17/17 08:58 Nebivolol (Bystolic) 10 mg DAILY PO 12/16/17 09:00 12/17/17 08:57 Pravastatin Sodium (Pravachol) 10 mg DAILY PO 12/16/17 09:00 12/17/17 09:00 Lisinopril (Prinivil) 2.5 mg DAILY PO 12/16/17 09:00 12/17/17 08:58 Morphine Sulfate (Morphine Inj) 2 mg Q3H PRN IV PAIN 6-10 12/15/17 20:45 12/16/17 05:22 Albuterol Sulfate (Albuterol Neb) 1.25 mg TID NEB NEB 12/16/17 14:00 12/17/17 13:02 Heparin Sodium (Porcine) (Heparin Inj) 5,000 units Q12HR SQ 12/16/17 21:00 12/17/17 08:58 Ceftriaxone Sodium 1000 mg/ Sodium Chloride 100 ml @ 200 mls/hr Q24H IV 12/17/17 09:00 12/17/17 08:59 Objective Remarks GENERAL: Elderly male, sitting up in bed in nad. SKIN: Warm and dry. HEAD: Normocephalic. EYES: No injection or drainage. NECK: Supple, trachea midline. CARDIOVASCULAR: Regular rate and rhythm RESPIRATORY: Breath sounds equal bilaterally. No accessory muscle use. GASTROINTESTINAL: Abdomen soft, non-tender, nondistended. EXTREMITIES: No cyanosis. NEUROLOGICAL: awake and alert, normal speech. moving all extremities. Assessment/Plan Problem List: (1) Multiple myeloma ICD Codes: C90.00 - Multiple myeloma not having achieved remission Plan: --IgG lambda multiple myeloma which was diagnosed in 2014. --maintained on Velcade and Decadron. --recently had a repeat bone marrow biopsy which showed still persistent disease , but stable. Assessment 87y/o with multiple myeloma admitted with generalized weakness and bone pain. h/o Multiple myeloma, hypertension, CVA, chronic kidney disease, history of colon cancer. Plan 1. continue pain management with [place] and Morphine as needed. 2. bone scan results reviewed with patient 3. continue supportive care. 4. once discharged. follow up in clinic for Velcade injection. Attending Statement The exam, history, and the medical decision-making described in the above note were completed with the assistance of the mid-level provider. I reviewed and agree with the findings presented. I attest that I had a [id number] encounter with the patient on the same day, and personally performed and documented my assessment and findings in the medical record. Unclear etiology of diffused bone pain bone survey does not show any new lesion possibly due to recent XGEVA treatment being placed at a rehab facility continue pain control f/u in oncology clinic in 1-2 weeks after discharge Edwige Cho Dec 17, 2017 14:39 Ag Neri MD Dec 17, 2017 22:26
[2017-12-17 17:06] LABS: BICARBONATE 20.5 MEQ/L (21.0-32.0); CALCIUM 8.2 MG/DL (8.5-10.1); CREATININE 1.15 MG/DL (0.60-1.30)
[2017-12-18] MEDS: SODIUM CHLOR 0.9% 1000 ML INJ 1,000 ML IV SCH (03:32)
[2017-12-18 05:08] VITALS: BP 158/70; PULSE 61; RESP 18; TEMP 98.7; O2SAT 99
[2017-12-18 06:44] VITALS: BP 154/78; PULSE 78; RESP 18; TEMP 98.7; O2SAT 94
[2017-12-18] MEDS: RESP: ALBUTEROL 1.25 MG/3 ML NEB (SCH) NEB ×2 (07:32→14:00)
[2017-12-18 07:52] VITALS: BP 169/77; PULSE 61; RESP 16; TEMP 98.6; O2SAT 97
[2017-12-18] MEDS: NEBIVOLOL 10 MG TAB PO SCH (08:25)
[2017-12-18] MEDS: ASPIRIN EC 81 MG TABEC PO SCH (08:25)
[2017-12-18] MEDS: CLOPIDOGREL 75 MG TAB PO SCH (08:26)
[2017-12-18] MEDS: cefTRIAXone INJ 1,000 MG in SODIUM CHLORIDE 0.9% INJ 100 ML IV SCH (08:26)
[2017-12-18] MEDS: LISINOPRIL 5 MG TAB PO SCH (08:26)
[2017-12-18] MEDS: SODIUM CHLORIDE 0.9% FLUSH 10 ML FLUSH IV FLUSH SCH (08:27)
[2017-12-18] MEDS: HEPARIN SODIUM - SQ 10,000 UNITS/ML VIAL SQ SCH (08:27)
[2017-12-18] MEDS: PRAVASTATIN SOD 10 MG TAB PO SCH (09:00)
[2017-12-18] MEDS: DOCUSATE SODIUM 50 MG/SENNA 8.6 MG TAB PO SCH (09:00)
--- NOTE | 2017-12-18 11:34 | PD.CONS ---
Consult Service Palliative Care Consult Requested By Dr Hall Primary Care Physician Unknown Reason for Consultation a. To assist with evaluation and management of symptoms including: b. To assist medical decision maker(s) with: better understanding of current medical conditions; weighing benefits/burdens of medical treatment options; making medical treatment decisions. HPI History of Present Illness This 87 yo pt presented to the ED with c/o generalized weakness, pain in arms/ legs, and shortness of breath. Family present reported pt "going downhill" since chemo on December 07. Pt w known hx multiple myeloma since 2014, ongoing tx with Velcade and dexamethasone. Denies chest pain. Shortness of breath worsens with exertion. Reports dizziness but no syncope. Pt also w hx collagen vascular disease, hypertension, kidney disease. Follows outpatient with oncology Dr. Haas. * ED: EKG notes sinus bradycardia. Some inverted T waves, ST depression changed compared to prior EKG. Anemic, hemoglobin 9.6. Hypokalemia 2.9, BUN 20 /creatinine 1.56. Troponin less than 0.02. CXR negative for acute process. CT angiogram negative for PE. CT abdomen pelvis= diffuse mild bowel ileus, numerous mild compression deformities of the lumbar spine which are smooth and probably related to osteoporosis moderate coronary calcifications mild anasarca. Planned for observation for further evaluation and management. * Oncology consulted : Daughter reported patient getting weaker and weaker, difficult for her to care for him at home. Patient with IgG lambda multiple myeloma diagnosed in 2014 maintained on Velcade and Decadron. He had not been a candidate for aggressive treatment due to advanced age and frailty and had stable disease process on Velcade and Decadron. Noted to have recent bone marrow biopsy showed disease persistent but stable. Planned for skeletal survey to evaluate possible lytic lesions. * Discharge planning in process for SNF placement as daughter can no longer care for him. Bone scan findings=1. Advanced osteopenia with compression fractures of L2 and L4. 2. No definite destructive lesion seen by plain film. Oncology notes no clear etiology for diffuse bone pain bone survey not indicating any new lesions may be possibly due to recent XGeva treatment . Plan for follow-up outpatient oncology in 1-2 weeks. Palliative care consulted to assist with clarification of goals of treatment. Seen in ER room, dual visit with tigist SHANKS palliative social sciences chair. He is initially sleeping, arouses easily to voice. He is partially oriented to self, family, hospital though limited insight into why he is in the hospital he tells me is because of his feet. He has very limited/poor insight to his medical conditions. He tells me he lives at home with his daughter, or rather that his daughter lives with him and has done so for the past few years. He knows that he follows outpatient with oncology but can't remember the name or what treatment she is getting for his multiple myeloma. He denies any complaints except for some pain to his left shoulder and joints. He denies shortness of breath. He denies headaches. He denies any nausea or vomiting tells me he has a good appetite. He does tell me that he's had a bowel movement and requests a nurse to help him clean up, he tells me everything he is eating is "going right through him". Review of discharge pending to SNF, he tells me that he doesn't need to go to rehabilitation, though I gently explored with him that he may need more care than his daughter can provide and he tells me that he will think about it. Discussed with primary nurse, she will assist with limited change. She tells me [facility] been in communication with them. Discharge is pending to SNF pending acceptance. --- Call to [facility], first number person answering indicates she is not in , and to call the second number. I called the second number and I left a voicemail for her with my contact information. Discussed with primary nurse, medical attending Dr. Hall. Oncology history per review of EMR:. Patient previously followed with Dr. Regan in [facility], started following with Dr. Haas September 2016. He was at that time noted to be somewhat of a poor historian, accompanied by his daughter. He had omitted insight into his disease and medications. Daughter assisted him. There is also some question of dementia on oncology's initial workup. Planned to continue with Velcade, dexamethasone. Oncology follow-up note 11/23/17: He is not a candidate for aggressive therapy will continue on maintenance Velcade. 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 He has had ongoing pain to joints. He was recommended for consideration of radiation oncology for possible radiation treatments to rib lesions, he declined this. Function/Cognitive Trajectory lives with daughter, ambulatory short distances within his house. Uses a walker as needed. 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 Review of Systems ROS Limitations: Poor Historian (limited history as patient poor historian and no family available at time of my exam) Constitutional: COMPLAINS OF: Pain (left shoulder, joint), DENIES: Dizziness, Change in appetite Respiratory: COMPLAINS OF: Shortness of breath (none currently however intermittent dyspnea chronic at home), DENIES: Cough Cardiovascular: DENIES: Chest pain Gastrointestinal: COMPLAINS OF: Diarrhea (endorses current diarrhea not clear how long this has been going on), DENIES: Nausea, Vomiting, Difficulty Swallowing, Anorexia Neurologic: DENIES: Headache Psychiatric: DENIES: Anxiety Past Family Social History Coded Allergies: No Known Allergies (Verified Adverse Reaction, Unknown, 12/15/17) Past Medical History Multiple myeloma Hypertension CVA CK D Colon cancer-status post surgery, chemotherapy . Past Surgical History colostomy with Reversal. Port placement . Reported Medications Ventolin Hfa 18 GM Inh (Albuterol Sulfate) 90 Mcg/Act Aer 1 Puff INH Q4H PRN Aspirin 81 (Aspirin) 81 Mg Tabdr 81 Mg PO DAILY Plavix (Clopidogrel Bisulfate) 75 Mg Tab 75 Mg PO DAILY Ondansetron (Ondansetron HCl) 8 Mg Tab 8 Mg PO TID Pravastatin 10 Mg Tab 10 Mg PO DAILY Lisinopril 2.5 Mg Tab 2.5 Mg PO DAILY Bystolic (Nebivolol) 10 Mg Tab 10 Mg PO DAILY Amlodipine (Amlodipine Besylate) 10 Mg Tab 10 Mg PO DAILY . Current Medications Medications (Trade) Dose Ordered Sig/Yuridia Route Start Time Stop Time Status Last Admin Sodium Chloride 1,000 ml @ 60 mls/hr [id number] IV 12/15/17 20:18 12/17/17 14:26 (NS Flush) 2 ml UNSCH PRN IV FLUSH 12/15/17 20:30 (NS Flush) 2 ml BID IV FLUSH 12/15/17 21:00 12/18/17 08:27 (Zofran Inj) 4 mg Q6H PRN IVP 12/15/17 20:30 (Tylenol) 650 mg Q6H PRN PO 12/15/17 20:30 12/17/17 01:39 (Paradise 5-325 Mg) 1 tab Q4H PRN PO 3/10/18 20:30 12/17/17 14:26 (Kalee-Colace) 1 tab BID PO 12/15/17 21:00 12/17/17 20:49 (Milk Of Magnesia Liq) 30 ml Q12H PRN PO 12/15/17 20:30 (Senokot) 17.2 mg Q12H PRN PO 12/15/17 20:30 (Dulcolax Supp) 10 mg DAILY PRN RECTAL 12/15/17 20:30 (Lactulose Liq) 30 ml DAILY PRN PO 12/15/17 20:30 (Proair Hfa Inh) 1 puff Q4H PRN INH 12/15/17 20:30 (Norvasc) 10 mg DAILY PO 12/16/17 09:00 12/18/17 08:26 (Ecotrin Ec) 81 mg DAILY PO 12/16/17 09:00 12/18/17 08:25 (Plavix) 75 mg DAILY PO 12/16/17 09:00 12/18/17 08:26 (Bystolic) 10 mg DAILY PO 12/16/17 09:00 12/18/17 08:25 (Pravachol) 10 mg DAILY PO 12/16/17 09:00 12/18/17 09:00 (Prinivil) 2.5 mg DAILY PO 12/16/17 09:00 12/18/17 08:26 (Morphine Inj) 2 mg Q3H PRN IV 12/15/17 20:45 12/16/17 05:22 (Pill Splitter) 1 ea UNSCH PRN OTHER 12/15/17 20:45 (Albuterol Neb) 1.25 mg TID NEB NEB 12/16/17 14:00 12/18/17 07:32 (Heparin Inj) 5,000 units Q12HR SQ 12/16/17 21:00 12/18/17 08:27 Ceftriaxone Sodium 1000 mg/ Sodium Chloride 100 ml @ 200 mls/hr Q24H IV 12/17/17 09:00 12/18/17 08:26 Family History Per EMR mother at age 60 of a cancer, father . Substance Use Tobacco: Quit smoking 20 years ago Alcohol: None Prescription med abuse: None Illicits: None . Psychosocial History . Lives at home with his daughter for the past several years. Retired many years ago, formerly worked as a maintenance and utilities supervisor. Spiritual/Cultural Factors [facility] Living Will: Never completed Health Care Surrogate: Never completed Durable Power of Header Setup Operator: Never completed Ethical and Legal Issues Patient with poor insight, poor historian. Some question of underlying dementia. Does not appear able to make his own decisions. Does not appear to have written advanced directives. 2 daughters listed as contacts. . Per [place] statutes these 2 daughters would be appropriate legal proxy. Physical Exam Vital Signs Date Time Temp Pulse Resp B/P (MAP) Pulse Ox O2 Delivery O2 Flow Rate FiO2 12/18/17 07:52 98.6 61 16 169/77 (107) 97 12/18/17 06:44 98.7 78 18 154/78 (103) 94 12/18/17 05:08 98.7 61 18 158/70 (99) 99 12/17/17 20:00 98.0 84 18 165/84 (111) 96 12/17/17 15:47 97.8 58 16 138/64 (88) 100 Exam CONSTITUTIONAL/GENERAL: This is a frail, elderly male alert, pleasant TUBES/LINES/DRAINS: Peripheral IV upper extremity, Guerra catheter SKIN: No jaundice, rashes, or lesions. No wounds seen anteriorly. Skin arms/dry HEAD: Atraumatic. Normocephalic. EYES: Pupils equal and round and reactive. Extraocular motions intact. No scleral icterus. No injection or drainage. Fundi not examined. ENT: Nose without bleeding or purulent drainage. Throat without visible erythema, exudates, masses, or lesions. Edentulous. NECK: Trachea midline. Supple, nontender. No palpable thyroid enlargement or nodularity. CARDIOVASCULAR: Regular rate and rhythm without murmurs. Peripheral pulses symmetric. RESPIRATORY/CHEST: Symmetric, unlabored respirations. Mildly tachypneic with conversation. Clear to auscultation. Breath sounds equal bilaterally. GASTROINTESTINAL: Abdomen soft, flat, non-tender, nondistended. No hepato- splenomegaly, or palpable masses. No guarding. Bowel sounds present. GENITOURINARY: Without palpable bladder distension. Guerra catheter in place. MUSCULOSKELETAL: Extremities without clubbing, cyanosis, or edema. No joint tenderness or effusion noted. LYMPHATICS: No palpable cervical or supraclavicular adenopathy. NEUROLOGICAL: Awake and alert. Oriented 2. Limited/poor insight hospitalization. Wasn't and cooperative. Moves all 4 extremities with generalized weakness. slight right facial droop. PSYCHIATRIC: No obvious anxiety/depression. no apparent hallucinations or other psychotic thought process. Diagnostic Tests Laboratory Laboratory Tests Test 12/15/17 16:46 12/16/17 00:47 12/16/17 05:00 12/16/17 19:00 White Blood Count 9.7 TH/MM3 (4.0-11.0) 9.1 TH/MM3 (4.0-11.0) Red Blood Count 3.23 MIL/MM3 (4.50-5.90) 3.04 MIL/MM3 (4.50-5.90) Hemoglobin 9.6 GM/DL (13.0-17.0) 9.0 GM/DL (13.0-17.0) Hematocrit 28.0 % (39.0-51.0) 26.2 % (39.0-51.0) Mean Corpuscular Volume 86.7 FL (80.0-100.0) 86.3 FL (80.0-100.0) Mean Corpuscular Hemoglobin 29.8 PG (27.0-34.0) 29.6 PG (27.0-34.0) Mean Corpuscular Hemoglobin Concent 34.3 % (32.0-36.0) 34.3 % (32.0-36.0) Red Cell Distribution Width 14.1 % (11.6-17.2) 13.7 % (11.6-17.2) Platelet Count 291 TH/MM3 (150-450) 300 TH/MM3 (150-450) Mean Platelet Volume 8.2 FL (7.0-11.0) 7.8 FL (7.0-11.0) Neutrophils (%) (Auto) 77.4 % (16.0-70.0) 79.1 % (16.0-70.0) Lymphocytes (%) (Auto) 5.7 % (9.0-44.0) 5.3 % (9.0-44.0) Monocytes (%) (Auto) 16.0 % (0.0-8.0) 14.7 % (0.0-8.0) Eosinophils (%) (Auto) 0.7 % (0.0-4.0) 0.8 % (0.0-4.0) Basophils (%) (Auto) 0.2 % (0.0-2.0) 0.1 % (0.0-2.0) Neutrophils # (Auto) 7.5 TH/MM3 (1.8-7.7) 7.1 TH/MM3 (1.8-7.7) Lymphocytes # (Auto) 0.6 TH/MM3 (1.0-4.8) 0.5 TH/MM3 (1.0-4.8) Monocytes # (Auto) 1.5 TH/MM3 (0-0.9) 1.3 TH/MM3 (0-0.9) Eosinophils # (Auto) 0.1 TH/MM3 (0-0.4) 0.1 TH/MM3 (0-0.4) Basophils # (Auto) 0.0 TH/MM3 (0-0.2) 0.0 TH/MM3 (0-0.2) CBC Comment DIFF FINAL DIFF FINAL Differential Comment Prothrombin Time 10.2 SEC (9.8-11.6) Prothromb Time International Ratio 1.0 RATIO Activated Partial Thromboplast Time 22.9 SEC (24.3-30.1) Blood Urea Nitrogen 28 MG/DL (7-18) 28 MG/DL (7-18) Creatinine 1.56 MG/DL (0.60-1.30) 1.34 MG/DL (0.60-1.30) Random Glucose 107 MG/DL (74-106) 105 MG/DL (74-106) Total Protein 7.2 GM/DL (6.4-8.2) 6.9 GM/DL (6.4-8.2) Albumin 3.5 GM/DL (3.4-5.0) 3.3 GM/DL (3.4-5.0) Calcium Level 9.1 MG/DL (8.5-10.1) 8.6 MG/DL (8.5-10.1) Magnesium Level 2.2 MG/DL (1.5-2.5) Alkaline Phosphatase 38 U/L (45-117) 37 U/L (45-117) Aspartate Amino Transf (AST/SGOT) 12 U/L (15-37) 8 U/L (15-37) Alanine Aminotransferase (ALT/SGPT) 13 U/L (12-78) 9 U/L (12-78) Total Bilirubin 0.7 MG/DL (0.2-1.0) 0.7 MG/DL (0.2-1.0) Sodium Level 140 MEQ/L (136-145) 142 MEQ/L (136-145) Potassium Level 2.9 MEQ/L (3.5-5.1) 3.3 MEQ/L (3.5-5.1) Chloride Level 106 MEQ/L (98-107) 109 MEQ/L (98-107) Carbon Dioxide Level 23.2 MEQ/L (21.0-32.0) 23.8 MEQ/L (21.0-32.0) Anion Gap 11 MEQ/L (5-15) 9 MEQ/L (5-15) Estimat Glomerular Filtration Rate 52 ML/MIN (>89) 61 ML/MIN (>89) Total Creatine Kinase 58 U/L (39-308) Troponin I LESS THAN 0.02 NG/ML LESS THAN 0.02 NG/ML LESS THAN 0.02 NG/ML Urine Color YELLOW (YELLW/STRAW) Urine Turbidity HAZY (CLEAR) Urine pH 6.0 (5.0-8.5) Urine Specific [place] 1.018 (1.002-1.035) Urine Protein 30 mg/dL (NEG-TRACE) Urine Glucose (UA) NEG mg/dL (NEG) Urine Ketones NEG mg/dL (NEG) Urine Occult Blood TRACE (NEG) Urine Nitrite NEG (NEG) Urine Bilirubin NEG (NEG) Urine Urobilinogen LESS THAN 2.0 MG/DL (LESS Urine Leukocyte Esterase LARGE (NEG) Urine RBC 11 /hpf (0-3) Urine WBC 61 /hpf (0-5) Urine WBC Clumps MOD (NONE) Urine Squamous Epithelial Cells 1 /hpf (0-5) Urine Yeast (Budding) FEW (NONE) Microscopic Urinalysis Comment CULTURE INDICATED Test 12/17/17 02:20 12/17/17 15:35 Stool C. difficile Toxin (PCR) NEGATIVE (NEGATIVE) Stl C. difficile Toxin Epiderm 027 PRESUMPTIVE NEGATIVE Blood Urea Nitrogen 23 MG/DL (7-18) Creatinine 1.15 MG/DL (0.60-1.30) Random Glucose 104 MG/DL (74-106) Calcium Level 8.2 MG/DL (8.5-10.1) Sodium Level 142 MEQ/L (136-145) Potassium Level 3.0 MEQ/L (3.5-5.1) Chloride Level 112 MEQ/L (98-107) Carbon Dioxide Level 20.5 MEQ/L (21.0-32.0) Anion Gap 10 MEQ/L (5-15) Estimat Glomerular Filtration Rate 73 ML/MIN (>89) Result Diagram: 12/16/17 0500 12/17/17 1535 Microbiology Microbiology Date/Time Source Procedure Growth Status 12/16/17 19:00 Urine Clean Catch Urine Culture - Final 10-50,000 CFU/ML MIXED GRAM POSITIVE ... Complete Imaging Last Impressions Bone Osseous Survey 12/17/17 0600 Signed Impressions: Service Date/Time: Sunday, December 17, 2017 11:07 - CONCLUSION: 1. Advanced osteopenia with compression fractures of L2 and L4. 2. No definite destructive lesion seen by plain film. Saul Diaz MD Chest X-Ray 12/15/17 1649 Signed Impressions: Service Date/Time: Friday, December 15, 2017 17:07 - CONCLUSION: No acute cardiopulmonary disease identified. Shahbaz Shaw MD CT Angiography 12/15/17 0000 Signed Impressions: Service Date/Time: Friday, December 15, 2017 19:22 - CONCLUSION: 1. No filling defects to suggest pulmonary embolic disease. Mild emphysema. Moderate coronary calcifications. Harman Kevin MD Abdomen/Pelvis CT 12/15/17 0000 Signed Impressions: Service Date/Time: Friday, December 15, 2017 19:22 - CONCLUSION: 1. Diffuse mild bowel ileus. 2. Numerous mild compression deformities of the lumbar spine which are smooth and probably related to osteoporosis. 3. Moderate coronary calcifications. Mild anasarca. Harman Kevin MD Patient/Family Conference Issues Discussed: Draft/pending --voicemail left for patient daughter. * Palliative care role, purpose, approach * Additional medical, psychosocial, and spiritual history * Patients general health, functional status, and cognitive changes in the months leading up to the current hospitalization * Patient/family understanding of the current medical problems * Patient/family understanding of prognosis * Patients goals of care as best understood from advance directives and/or conversations and/or values * Current medical treatment options and benefits/burdens of those options * Likely scenarios comparing ongoing aggressive care with a transition to comfort measures only * Questions answered to the best of my ability * Palliative care contact information provided Assessment and Plan Disease Oriented Problem List: (1) Acute electrocardiogram changes (2) Renal insufficiency (3) Multiple myeloma (4) Generalized weakness (5) Dyspnea (6) Hypokalemia (7) Anemia Symptom Scale: (1) Dyspnea 0-10 Scale: Unable to quantify (2) Pain 0-10 Scale: Unable to quantify (3) Weakness 0-10 Scale: Unable to quantify Pertinent Non-Medical Issues Psychosocial:. Lives at home with his daughter for the past several years. Retired many years ago, formerly worked as a maintenance and utilities supervisor. Spiritual: [employer] Legal:Patient with poor insight, poor historian. Some question of underlying dementia. Does not appear able to make his own decisions. Does not appear to have written advanced directives. 2 daughters listed as contacts. . Per [place] statutes these 2 daughters would be appropriate legal proxy. Ethical issues impacting care: Important Contacts Krupa Diaz [phone], Izabella Benjamín [phone], . Prognosis This patient was admitted for pain, dyspnea and generalized weakness. He has known history of multiple myeloma diagnosed around 2014. His disease is not in remission however is stable. He is remained stable during hospital course, discharge planning for SNF placement. He does remain at risk for continued decline and complications secondary to advanced age, multiple medical conditions , frail status. . Code Status: Full Code Plan Legal decision maker:Patient with poor insight, poor historian. Some question of underlying dementia. Does not appear able to make his own decisions. Does not appear to have written advanced directives. 2 daughters listed as contacts. . Per [place] statutes these 2 daughters would be appropriate legal proxy. Goals: Pending discussion with patient daughter (s)/appropriate legal decision makers. Patient with limited insight. Voicemail left for daughter [employer] CODE STATUS: Full code by default SYMPTOMS: --Dyspnea--presented with shortness of breath. Patient endorses intermittent dyspnea relieved with use of nebulizer. He also indicates he uses oxygen as needed at home though not clear how accurate this is as he is somewhat of a poor historian. He denies dyspnea during my exam. --Weakness-presented with generalized weakness. Patient with ongoing multiple myeloma stable disease process.+ Frail, deconditioned. If goals aggressive may benefit from maximize PT/OT as able to tolerate in rehabilitation setting, though this is likely to be of limited effectiveness. --Pain-presented with generalized pain/arms and legs. + Bone scan negative for new multiple myeloma lesions.? Related to recent XGeva treatment // Review of outpatient oncology records has been maintained on [facility]. He has had one dose 2 mg morphine IV, and 2 doses prn [facility] 5 mg. Effective. No recommendations at this time. --Diarrhea- ? Onset, not clear how long this is been going on. Does not appear has had recent antibiotic use. Continue to monitor. Palliative care will continue to follow during hospital course as condition evolves, to assist patient/decision-maker with understanding of medical conditions, weighing benefits/burdens of treatment options, for clarification of goals of treatment. Additionally will assist with any symptoms of palliative concern Thank you for the opportunity to participate in the care of Mr. Vivas. Attestation To help prompt me to consider important information that might be impacting today's encounter and assessment, information from prior notes written by myself or my colleagues may have been "brought forward" into today's note. My signature on this note, however, is an attestation that I personally performed the exam, history, and/or decision-making noted today, and, unless otherwise indicated, the interactions with patient, family, and staff as well as the review of records all occurred today. I also attest that the listed assessment and stated plan reflect my best clinical judgment today based on the combination of historical information, prior notes, and today's exam/ interactions. When time spent is documented, it refers only to time spent today by the signer, or if indicated, combined time spent today by collaborating physician/nurse practitioner. Christa Jj Dec 18, 2017 11:34
[2017-12-18 11:50] VITALS: BP 156/70; PULSE 60; RESP 16; TEMP 98.7; O2SAT 100
[2017-12-18 14:45] VITALS: BP 91/52; PULSE 60; RESP 16; TEMP 98.1; O2SAT 100
[2017-12-18] MEDS: ACETAMINOPHEN/HYDROcodone 325 MG/5 MG TAB PO PRN (17:03)
== END 2017-12-18 19:03 | disposition home or self-care (01) ==
LOC: NEPC 16:08 → NEDA 20:06 → NEPGCP 21:29
PROVIDERS: ADMIT Hospitalist; ATTEND Hospitalist
DX: R53.1 Weakness (principal); R94.31 Abnormal electrocardiogram [ECG] [EKG]; E87.6 Hypokalemia; N28.9 Disorder of kidney and ureter, unspecified; C90.00 Multiple myeloma not having achieved remission; C79.51 Secondary malignant neoplasm of bone; D64.9 Anemia, unspecified; K56.7 Ileus, unspecified; R60.1 Generalized edema; M25.512 Pain in left shoulder; R00.1 Bradycardia, unspecified; R42 Dizziness and giddiness; I12.9 Hypertensive chronic kidney disease with stage 1 through stage 4 chronic kidney disease, or unspecified chronic kidney disease; E11.22 Type 2 diabetes mellitus with diabetic chronic kidney disease; N18.3 Chronic kidney disease, stage 3 (moderate); J43.9 Emphysema, unspecified; I69.398 Other sequelae of cerebral infarction; M43.8X6 Other specified deforming dorsopathies, lumbar region; M48.56XA Collapsed vertebra, not elsewhere classified, lumbar region, initial encounter for fracture; M85.80 Other specified disorders of bone density and structure, unspecified site; N40.0 Benign prostatic hyperplasia without lower urinary tract symptoms; H91.90 Unspecified hearing loss, unspecified ear; Z79.899 Other long term (current) drug therapy; Z79.82 Long term (current) use of aspirin; Z79.02 Long term (current) use of antithrombotics/antiplatelets; Z85.038 Personal history of other malignant neoplasm of large intestine; Z87.891 Personal history of nicotine dependence
CPT/HCPCS: 71045; 71275; 74177; 77075; 80048; 80053; 81001; 82550; 83735; 84484; 85025; 85610; 85730; 87086; 87493; 93005; 94640; 94664; 96361; 96365; 96366; 96372; 96375; 97162; 97166; 99285; G0378; G8987; G8988; J0696; J1644; J2270; J3480; J7030; J7613; Q9967

== ENCOUNTER 2018-01-15 15:05 | Emergency (ER) | payer OTHER ==
[~2018-01-15] VITALS: Ht 177.8 cm; Wt 65.0 kg
[~2018-01-15 15:05] MED LIST changes: +CEFU1TAB18 PO; +NORC5TAB PO
[2018-01-15 15:17] VITALS: BP 195/92; PULSE 103; RESP 31; O2SAT 96
[2018-01-15 16:00] VITALS: BP_SYST 149; BP_SYST 176; BP_DIAS 86; BP_DIAS 87; PULSE 100; PULSE 101; RESP 18; RESP 20; O2SAT 98
[2018-01-15 16:11] LABS: AUTOMATED NEUTROPHIL # 9.5 TH/MM3 (1.8-7.7); BASOPHIL % 0.4 % (0.0-2.0); EOSINOPHIL % 0.3 % (0.0-4.0); HEMATOCRIT 31.9 % (39.0-51.0); HEMOGLOBIN 10.6 GM/DL (13.0-17.0); LYMPH % 5.4 % (9.0-44.0); LYMPHOCYTE # 0.6 TH/MM3 (1.0-4.8); MEAN CELL VOLUME 84.4 FL (80.0-100.0); MEAN CORPUSCULAR HGB CONC 33.2 % (32.0-36.0); MEAN PLATELET VOLUME 6.7 FL (7.0-11.0); MONO % 5.9 % (0.0-8.0); MONOCYTE # 0.6 TH/MM3 (0-0.9); PLATELET COUNT 591 TH/MM3 (150-450); RED BLOOD COUNT 3.79 MIL/MM3 (4.50-5.90); RED CELL DISTRIBUTION WIDTH 14.1 % (11.6-17.2); WHITE BLOOD COUNT 10.9 TH/MM3 (4.0-11.0)
[2018-01-15 16:23] LABS: INTERNATIONAL NORMALIZED RATIO 1.1 RATIO; PROTHROMBIN TIME - PATIENT 10.7 SEC (9.8-11.6)
[2018-01-15 16:40] LABS: ALT (GPT) 24 U/L (12-78); AST (GOT) 19 U/L (15-37); BICARBONATE 21.1 MEQ/L (21.0-32.0); BLOOD UREA NITROGEN 22 MG/DL (7-18); CALCIUM 9.4 MG/DL (8.5-10.1); CHLORIDE 106 MEQ/L (98-107); CREATININE 1.68 MG/DL (0.60-1.30); GLOMERULAR FILTRATION RATE 47 ML/MIN (>89); GLUCOSE,RANDOM 92 MG/DL (74-106); SODIUM (NA) 138 MEQ/L (136-145)
[2018-01-15 16:42] LABS: ALKALINE PHOSPHATASE 57 U/L (45-117); TOTAL BILIRUBIN ADULT 0.5 MG/DL (0.2-1.0); TOTAL PROTEIN 7.8 GM/DL (6.4-8.2)
--- NOTE | 2018-01-15 16:46 | RADRPT ---
EXAM DATE/TIME: 01/15/2018 16:13 [facility] COMPARISON: CHEST SINGLE AP, December 15, 2017, 17:07. INDICATIONS : Cough. MEDICAL HISTORY : Carcinoma, bone. Carcinoma, colon. Stroke. multiple myeloma SURGICAL HISTORY : Colostomy. ENCOUNTER: Initial ACUITY: 1 day PAIN SCORE: 0/10 LOCATION: Bilateral chest FINDINGS: Portable AP view of the chest demonstrates a normal-sized cardiac silhouette. Right chest wall Infuse -a-Port is present. There is a prominent skinfold on the left mimicking a pneumothorax. However, no e ffusion, consolidation, or true pneumothorax is present. The bones and soft tissues demonstrate no ac volodymyr abnormality. CONCLUSION: No acute cardiopulmonary abnormality is identified. Henry Shah MD on January 15, 2018 at 16:42 Board Certified Radiologist. This report was verified electronically.
--- NOTE | 2018-01-15 17:08 | PD ---
HPI Chief Complaint: Respiratory Distress Time Seen by Provider: 15:08 Travel History International Travel<30 days: No Contact w/Intl Traveler<30days: No Traveled to known affect area: No History of Present Illness HPI The patient is a 87-year-old -[place] male who presents to the emergency department for multiple complaints. The patient was recently hospitalized over 1 month ago for generalized weakness, urinary incontinence, diarrhea. The patient was noted to have C. difficile at that time he was treated. The patient was nonambulatory at that time secondary to his generalized weakness and a suggested rehabilitation at a rehab center. The patient went to a rehab center, however, was unable to ambulate after 2 weeks of no progress and was subsequently discharged home. The states the patient has a history of decubitus ulcers which will not heal because he is unable to get out of bed. They do turn the patient to the left and the right at home, however, he continues to have some ulcerations. The also notes some swelling to the heels bilaterally. The patient went to see his [employer] nurse practitioner earlier today who referred him to the emergency department for further evaluation. The patient has had some intermittent cough, congestion, and shortness of breath. He does have a history of COPD. The patient did have some weight loss at rehab, but continues to drink fluids without difficulty according to the . PFSH Past Medical History Asthma: No Anxiety: No Depression: No Heart Rhythm Problems: No Cancer: Yes (COLON CANCER, [place]) Cardiovascular Problems: Yes (htn) High Cholesterol: No Chemotherapy: Yes Chest Pain: No Congestive Heart Failure: No COPD: No Cerebrovascular Accident: Yes Diabetes: Yes Patient Takes Glucophage: No Diminished Hearing: Yes ( [place]) Endocrine: No Gastrointestinal Disorders: Yes (colon sx ) Hypertension: Yes Immune Disorder: No Implanted Vascular Access Dvce: Yes (right chest port) Musculoskeletal: Yes (right lower extremity weakness - intermittent) Neurologic: Yes Psychiatric: No Reproductive: No Respiratory: No Immunizations Current: No (denies ) Sleep Apnea: No Thyroid Disease: No Past Surgical History Abdominal Surgery: Yes (COLOSTOMY WITH REVERSAL) AICD: No Body Medical Devices: right chest port 3 months ago Eye Surgery: No Gynecologic Surgery: No Joint Replacement: No Oral Surgery: No Pacemaker: No Other Surgery: Yes (colon sx 1997) Social History Alcohol Use: No Tobacco Use: No (QUIT 20 YEARS AGO) Substance Use: No Allergies-Medications (Allergen,Severity, Reaction): Coded Allergies: No Known Allergies (Verified Adverse Reaction, Unknown, 01/15/18) Reported Meds & Prescriptions Reported Meds & Active Scripts Active [place] (Hydrocodone-Acetaminophen) 5 Mg-325 Mg Tab 1 Tab PO Q6H PRN Reported Ventolin Hfa 18 GM Inh (Albuterol Sulfate) 90 Mcg/Act Aer 1 Puff INH Q4H PRN Aspirin 81 (Aspirin) 81 Mg Tabdr 81 Mg PO DAILY Plavix (Clopidogrel Bisulfate) 75 Mg Tab 75 Mg PO DAILY Ondansetron (Ondansetron HCl) 8 Mg Tab 8 Mg PO TID Pravastatin 10 Mg Tab 10 Mg PO DAILY Lisinopril 2.5 Mg Tab 2.5 Mg PO DAILY Bystolic (Nebivolol) 10 Mg Tab 10 Mg PO DAILY Amlodipine (Amlodipine Besylate) 10 Mg Tab 10 Mg PO DAILY Review of Systems Except as stated in HPI: all other systems reviewed are Neg General / Constitutional: No: Fever Cardiovascular: No: Chest Pain or Discomfort Respiratory: Positive: Cough, Shortness of Breath Gastrointestinal: Positive: Loss of Appetite, No: Nausea, Vomiting, Abdominal Pain Genitourinary: No: Decreased Urinary Output Musculoskeletal: Positive: Weakness, Other (Swelling to the heels bilaterally secondary to immobility) Skin: Positive Other (Decubital ulcers to the sacrum) Physical Exam Narrative GENERAL: Awake, alert, pleasant 87-year-old male who appears his stated age and is in no acute respiratory distress. SKIN: Focused skin assessment warm/dry. HEAD: Atraumatic. Normocephalic. EYES: Pupils equal and round. No injection or drainage. ENT: No nasal bleeding or discharge. Mucous membranes pink and moist. Poor dentition. NECK: Trachea midline. No JVD. CARDIOVASCULAR: Regular rate and rhythm. No murmur appreciated. Port in place right chest wall. RESPIRATORY: Tachypnea with a respiratory rate of 22. Rhonchi in the left base. No retractions noted. GASTROINTESTINAL: Abdomen soft, non-tender, nondistended. No rebound tenderness. Back: The patient has 2 separate decubitus ulcers. There is one on the right superior gluteal area that is 7 cm x 4 cm stage II and one on the left superior gluteal area that is 2 cm x 1 cm, stage II. MUSCULOSKELETAL: No obvious deformities. No clubbing. No cyanosis. No edema. NEUROLOGICAL: Awake and alert. No obvious cranial nerve deficits. Motor grossly within normal limits. Normal speech. Follows simple commands. Responds to name. PSYCHIATRIC: Appropriate mood and affect; insight and judgment normal. Data Data Last Documented VS Vital Signs Date Time Temp Pulse Resp B/P (MAP) Pulse Ox O2 Delivery O2 Flow Rate FiO2 01/15/18 16:00 100 20 176/87 (116) 98 Room Air Orders Orders Sepsis Workup Initiated (01/15/18 ) Complete Blood Count With Diff (01/15/18 15:44) Comprehensive Metabolic Panel (01/15/18 15:44) Lactic Acid Sepsis Protocol (01/15/18 15:44) Chest, Single Ap (01/15/18 15:44) Blood Culture (01/15/18 15:44) Iv Access Insert/Monitor (01/15/18 15:44) Oxygen Administration (01/15/18 15:44) Oximetry (01/15/18 15:44) Blood Glucose (01/15/18 15:44) Coag Profile (01/15/18 15:44) B-Type Natriuretic Peptide (01/15/18 15:44) Urinalysis - C+S If Indicated (01/15/18 16:53) Electrocardiogram (01/15/18 15:35) Cath For Specimen (01/15/18 17:18) Urine Culture (01/15/18 17:25) Ceftriaxone Inj (Rocephin Inj) (01/15/18 18:45) Ed Discharge Order (01/15/18 18:48) Labs Laboratory Tests Test 01/15/18 15:50 01/15/18 17:25 White Blood Count 10.9 TH/MM3 Red Blood Count 3.79 MIL/MM3 Hemoglobin 10.6 GM/DL Hematocrit 31.9 % Mean Corpuscular Volume 84.4 FL Mean Corpuscular Hemoglobin 28.0 PG Mean Corpuscular Hemoglobin Concent 33.2 % Red Cell Distribution Width 14.1 % Platelet Count 591 TH/MM3 Mean Platelet Volume 6.7 FL Neutrophils (%) (Auto) 88.0 % Lymphocytes (%) (Auto) 5.4 % Monocytes (%) (Auto) 5.9 % Eosinophils (%) (Auto) 0.3 % Basophils (%) (Auto) 0.4 % Neutrophils # (Auto) 9.5 TH/MM3 Lymphocytes # (Auto) 0.6 TH/MM3 Monocytes # (Auto) 0.6 TH/MM3 Eosinophils # (Auto) 0.0 TH/MM3 Basophils # (Auto) 0.0 TH/MM3 CBC Comment DIFF FINAL Differential Comment Prothrombin Time 10.7 SEC Prothromb Time International Ratio 1.1 RATIO Activated Partial Thromboplast Time 28.5 SEC Blood Urea Nitrogen 22 MG/DL Creatinine 1.68 MG/DL Random Glucose 92 MG/DL Total Protein 7.8 GM/DL Albumin 3.0 GM/DL Calcium Level 9.4 MG/DL Alkaline Phosphatase 57 U/L Aspartate Amino Transf (AST/SGOT) 19 U/L Alanine Aminotransferase (ALT/SGPT) 24 U/L Total Bilirubin 0.5 MG/DL Sodium Level 138 MEQ/L Potassium Level 4.1 MEQ/L Chloride Level 106 MEQ/L Carbon Dioxide Level 21.1 MEQ/L Anion Gap 11 MEQ/L Estimat Glomerular Filtration Rate 47 ML/MIN Lactic Acid Level 0.9 mmol/L B-Type Natriuretic Peptide 12 PG/ML Urine Color YELLOW Urine Turbidity HAZY Urine pH 5.5 Urine Specific [place] 1.011 Urine Protein 30 mg/dL Urine Glucose (UA) NEG mg/dL Urine Ketones NEG mg/dL Urine Occult Blood SMALL Urine Nitrite NEG Urine Bilirubin NEG Urine Urobilinogen LESS THAN 2.0 MG/DL Urine Leukocyte Esterase LARGE Urine RBC /hpf Urine WBC /hpf Urine WBC Clumps MANY Urine Squamous Epithelial Cells 12 /hpf Urine Bacteria MANY /hpf Urine Yeast with Hyphae MANY Urine Yeast (Budding) MANY Microscopic Urinalysis Comment CATH-CULTURE IND [facility] Medical Decision Making Medical Screen Exam Complete: Yes Emergency Medical Condition: Yes Medical Record Reviewed: Yes Interpretation(s) Laboratory Tests Test 01/15/18 15:50 01/15/18 17:25 White Blood Count 10.9 TH/MM3 Red Blood Count 3.79 MIL/MM3 Hemoglobin 10.6 GM/DL Hematocrit 31.9 % Mean Corpuscular Volume 84.4 FL Mean Corpuscular Hemoglobin 28.0 PG Mean Corpuscular Hemoglobin Concent 33.2 % Red Cell Distribution Width 14.1 % Platelet Count 591 TH/MM3 Mean Platelet Volume 6.7 FL Neutrophils (%) (Auto) 88.0 % Lymphocytes (%) (Auto) 5.4 % Monocytes (%) (Auto) 5.9 % Eosinophils (%) (Auto) 0.3 % Basophils (%) (Auto) 0.4 % Neutrophils # (Auto) 9.5 TH/MM3 Lymphocytes # (Auto) 0.6 TH/MM3 Monocytes # (Auto) 0.6 TH/MM3 Eosinophils # (Auto) 0.0 TH/MM3 Basophils # (Auto) 0.0 TH/MM3 CBC Comment DIFF FINAL Differential Comment Prothrombin Time 10.7 SEC Prothromb Time International Ratio 1.1 RATIO Activated Partial Thromboplast Time 28.5 SEC Blood Urea Nitrogen 22 MG/DL Creatinine 1.68 MG/DL Random Glucose 92 MG/DL Total Protein 7.8 GM/DL Albumin 3.0 GM/DL Calcium Level 9.4 MG/DL Alkaline Phosphatase 57 U/L Aspartate Amino Transf (AST/SGOT) 19 U/L Alanine Aminotransferase (ALT/SGPT) 24 U/L Total Bilirubin 0.5 MG/DL Sodium Level 138 MEQ/L Potassium Level 4.1 MEQ/L Chloride Level 106 MEQ/L Carbon Dioxide Level 21.1 MEQ/L Anion Gap 11 MEQ/L Estimat Glomerular Filtration Rate 47 ML/MIN Lactic Acid Level 0.9 mmol/L B-Type Natriuretic Peptide 12 PG/ML Urine Color YELLOW Urine Turbidity HAZY Urine pH 5.5 Urine Specific [place] 1.011 Urine Protein 30 mg/dL Urine Glucose (UA) NEG mg/dL Urine Ketones NEG mg/dL Urine Occult Blood SMALL Urine Nitrite NEG Urine Bilirubin NEG Urine Urobilinogen LESS THAN 2.0 MG/DL Urine Leukocyte Esterase LARGE Urine RBC /hpf Urine WBC /hpf Urine WBC Clumps MANY Urine Squamous Epithelial Cells 12 /hpf Urine Bacteria MANY /hpf Urine Yeast with Hyphae MANY Urine Yeast (Budding) MANY Microscopic Urinalysis Comment CATH-CULTURE IND Differential Diagnosis Differential diagnosis includes decubitus ulcer, bronchitis, aspiration, failure to thrive, acute renal failure, hypoalbuminemia, cellulitis, pneumonia, debility, deconditioning, pericardial effusion, pleural effusion. Narrative Course IV was established, labs are drawn and sent, and the patient was placed on cardiac telemetry monitoring and continuous pulse oximetry monitoring. Chest x- ray was obtained. Lactic acid was sent to lab. The patient's decubitus ulcers were dressed. The patient then was given heel protection for the blisters that are forming from pressure. Chest x-ray is unremarkable. White count and lactic acid are normal. Hemoglobin is improved to 10.6. UA does reveal innumerable RBCs and WBCs with yeast, consistent with urinary tract infection. The patient was administered Rocephin 1 g intravenously. I did speak with social secretary and the family regarding home health care, the states the patient does need home health care. I completed a [id number] sheet and spoke with case management personally who spoke with the patient and his . [place] [facility] will call the family tomorrow at home to arrange home health care. The patient will be discharged home on Cipro and Diflucan. They are advised to follow-up with his primary physician. The family will be provided a copy of the labs and x-ray results at discharge. Diagnosis Primary Impression: UTI (urinary tract infection) Qualified Codes: N30.01 - Acute cystitis with hematuria Additional Impressions: Sacral decubitus ulcer, stage II Pressure sore on heel Qualified Codes: L89.601 - Pressure ulcer of unspecified heel, stage 1 Patient Instructions: General Instructions Additional Instructions: Medications as directed. Home health care as directed. Follow-up with your primary physician. Return if symptoms worsen or progress. The patient was prescribed Cipro 250 mg twice a day for 7 days and Diflucan 150 mg 1. Med/Other Pt SpecificInfo: Prescription(s) given Disposition: DISCHARGE HOME Condition: Stable Darwin Vidal MD Jan 15, 2018 17:08
--- NOTE | 2018-01-15 17:17 | HHI.FF ---
Face to Face Verification Diagnosis: (1) COPD (chronic obstructive pulmonary disease) (2) Multiple myeloma (3) Weakness Physical Therapy Order: Evaluate and Treat, Improve ambulation Occupational Therapy Order: Evaluate and Treat, Improve ADL Speech Therapy Order: To Improve: Swallowing Home Health Nursing Order: Wound care and dressing changes Home Health Aide Order: To Assist In: Bathing and personal care Wardrobe Manager Order: To Evaluate: Support services Order: To Provide: Long range planning I have seen patient Mert Vivas on 01/15/18. My clinical findings support the need for the requested home health care services because: Ltd mobility - disease progression Deconditioned w/ increased weakness Limited ability to care for self I certify that my clinical findings support that this patient is homebound because: Hx COPD- exertion dyspnea/weakness [id number] bed/chair Darwin Vidal MD Jan 15, 2018 17:17
[2018-01-15 18:18] LABS: BACTERIA, URINE MANY /hpf; BILIRUBIN, URINE NEG (NEG); BLOOD, URINE SMALL (NEG); GLUCOSE,URINE NEG (NEG); KETONE, URINE NEG (NEG); NITRITE,URINE NEG (NEG); PH, URINE 5.5 (5.0-8.5); SQUAMOUS EPITHELIAL CELL URINE 12 /hpf (0-5); URINE COLOR YELLOW (YELLW/STRAW); URINE LEUKOCYTE ESTERASE LARGE (NEG); WHITE BLOOD CELL CLUMPS MANY
[2018-01-15] MEDS ORDERED: cefTRIAXone INJ 1,000 MG in SODIUM CHLORIDE 0.9% INJ 100 ML IV ONE (18:45)
--- NOTE | 2018-01-16 21:35 | EKG ---
Date Performed: 01/15/2018 Time Performed: 15:35:43 PTAGE: 87 years EKG: Sinus rhythm NORMAL ECG INTERPRETATION BASED ON A DEFAULT AGE OF 40 YEARS PREVIOUS TRACING : 12/15/2017 16.55 Since the previous tracing, no significant change not ed DOCTOR: Spencer Gage Interpretating Date/Time 01/16/2018 21:33:56
== END 2018-01-15 19:10 | disposition home or self-care (01) ==
LOC: NEPC 15:05
DX: N39.0 Urinary tract infection, site not specified (principal); L89.152 Pressure ulcer of sacral region, stage 2; L89.629 Pressure ulcer of left heel, unspecified stage; L89.619 Pressure ulcer of right heel, unspecified stage; R53.1 Weakness; R32 Unspecified urinary incontinence; R19.7 Diarrhea, unspecified; M79.89 Other specified soft tissue disorders; J44.9 Chronic obstructive pulmonary disease, unspecified
CPT/HCPCS: 71045; 80053; 81001; 83605; 83880; 85025; 85610; 85730; 87040; 87086; 93005; 96374; 99285; J0696; P9612